=== PATIENT | male | born 1955 | race American Indian/Alaskan Native ===

== ENCOUNTER 2016-11-20 12:34 | Inpatient (IN) | payer OTHER ==
--- NOTE | 2016-11-20 13:44 | C.PDOC ---
History Of Present Illness 61 y/o male with Hx of brito and HTN presents to ED with complaints of left leg weakness since noon today. Patient states while he was brushing teeth today around 12pm and reports symptoms have been improving. Patient denies fever, nausea, slurred speech or any other complaints at this time. Time Seen by Provider: 11/20/16 13:13 Chief Complaint (Nursing): Lower Extremity Problem/Injury History Per: Patient History/Exam Limitations: no limitations Onset/Duration Of Symptoms: Hrs Current Symptoms Are (Timing): Still Present Past Medical History Reviewed: Historical Data, Nursing Documentation, Vital Signs Vital Signs: Last Vital Signs Temp 98.3 F 11/20/16 15:15 Pulse 72 11/20/16 15:15 Resp 18 11/20/16 15:15 BP 110/62 11/20/16 15:15 Pulse Ox 98 11/20/16 15:15 - Medical History PMH: HTN, Hyperlipidemia Surgical History: No Surg Hx Family History: States: No Known Family Hx - Social History Hx Alcohol Use: No Hx Substance Use: No Review Of Systems Except As Marked, All Systems Reviewed And Found Negative. Constitutional: Negative for: Fever, Chills Cardiovascular: Negative for: Chest Pain Respiratory: Negative for: Shortness of Breath Gastrointestinal: Negative for: Nausea Musculoskeletal: Positive for: Leg Pain Skin: Negative for: Rash Neurological: Positive for: Weakness. Negative for: Numbness, Headache, Dizziness Physical Exam - Physical Exam Appears: Non-toxic, No Acute Distress Skin: Normal Color, Warm, No Rash Head: Atraumatic, Normacephalic Eye(s): bilateral: Normal Inspection Oral Mucosa: Moist Neck: Normal ROM, Supple Chest: Symmetrical Cardiovascular: Rhythm Regular, No Murmur Respiratory: Normal Breath Sounds, No Rales, No Rhonchi, No Wheezing Gastrointestinal/Abdominal: Soft, No Tenderness, No Guarding, No Rebound Extremity: Normal ROM, Capillary Refill (<2 seonds), Other (4/5 left lower extremity strength) Pulses: Left Dorsalis Pedis: Normal, Right Dorsalis Pedis: Normal Neurological/Psych: Oriented x3, Normal Speech, Normal Cranial Nerves, Normal Sensation ED Course And Treatment - Laboratory Results Result Diagrams: 11/20/16 13:49 11/20/16 13:49 ECG: Interpreted By Me, Viewed By Me ECG Rhythm: Sinus Rhythm, Nonspecific Changes ECG Interpretation: Normal Interpretation Of EC O2 Sat by Pulse Oximetry: 97 (RA) Pulse Ox Interpretation: Normal NIHSS Stroke Scale - Date/Time Evaluation Performed Date Performed: 11/20/16 Time Performed: 14:31 - How Severe is the Stoke Level of Consciousness: 0=Alert LOC to Questions: 0=Both comments correct LOC to commands: 0=Obeys both correctly Best Gaze: 0=Normal Visual: 0=No visual loss Facial: 0=Normal Motor Arm - Left: 0=No drift Motor Arm - Right: 0=No drift Motor Leg - Left: 1=Drift before 5 sec Motor Leg - Right: 0=No drift Limb Ataxia: 0=Absent Sensory: 0=Normal Best Language: 0=No aphasia Dysarthia: 0=Normal articulation Extinction & Inattention (Neglect): 0=Normal, no object Score: 1 Severity Of Stroke: 1-4= Minor Stroke rTPA Inclusion/Exclusion - Refusal of Treatment Patient Refused Treatment: No - Inclusion Criteria for Altepase Patient is 18 years or Older: Yes The Clinical Diagnosis of Ischemic Stroke That is Causing a Potentially Disabling Neurological Deficit: No Time of Onset is Well Established to be Less Than 270 Minute Before Treatment Would Begin: Yes Risk/Benefit Discussed With Patient/Family Member Present: No - Exclusion Criteria for Altepase Less Than 3 Months Had a Recent: Stroke Medical Decision Making Medical Decision Making: code stroke- labs imnaging pending Plan: * ECG * Blood work * UA * 230: code stroke called on arrival. pt with inprovng symptoms. discussed with dr crzu , requests asa plavix, ns. pt not tpa candidate as previous cva last 1 month. Disposition - Disposition Disposition: HOSPITALIZED Disposition Time: 03:00 Condition: STABLE - Clinical Impression Clinical Impression: Stroke - PA / SPRINKLING SYSTEM IRRIGATOR / Resident Statement MD/DO has examined the patient and agrees with the treatment plan. - Scribe Statement The provider has reviewed the documentation as recorded by the Seymour Bryan All medical record entries made by the Scribe were at my direction and personally dictated by me. I have reviewed the chart and agree that the record accurately reflects my personal performance of the history, physical exam, medical decision making, and the department course for this patient. I have also personally directed, reviewed, and agree with the discharge instructions and disposition. Decision To Admit - Pt Status Changed To: Hospital Disposition Of: Inpatient - Admit Certification Admit to Inpatient:: After my assessment, the patient will require hospitalization for at least two midnights. This is because of the severity of symptoms shown, intensity of services needed, and/or the medical risk in this patient being treated as an outpatient. - InPatient: Physician Admission Certification: I certify that this patient requires 2 or more midnights of care for the following reason:: pt with stroke, needs neuro eval. - . Bed Request Type: Telemetry Admitting Physician: Yohannes Hines Patient Diagnosis: Stroke
--- NOTE | 2016-11-20 13:46 | CT ---
PROCEDURE: CT HEAD WITHOUT CONTRAST. HISTORY: Code Stroke COMPARISON: None available. TECHNIQUE: Axial computed tomography images were obtained through the head/brain without intravenous contrast. Radiation dose: Total exam DLP = 822 mGy-cm. This CT exam was performed using one or more of the following dose reduction techniques: Automated exposure control, adjustment of the mA and/or kV according to patient size, and/or use of iterative reconstruction technique. FINDINGS: HEMORRHAGE: No intracranial hemorrhage. BRAIN: There is edema with local mass identified in the medial left frontal lobe and a very small left anterior cerebral artery distribution. Minimal lucency measures approximately 1 cm at the cortex of the are posterior right frontal lobe near the vertex. There is lucency at the inferior right cerebellum medially which does not compress the local sulci and this is felt to represent a subacute or chronic infarct or is the left frontal 1 May be more acute or early is subacute. The right frontal lucency is indeterminate and may represent a small lacune of chronic at age. No intracranial hemorrhage appreciated. No significant global mass effect. Clinically correlate further. Follow-up MRI is advised for greater characterization. The brain parenchyma is otherwise normal appearing. No atrophy or chronic microvascular ischemic changes. VENTRICLES: Unremarkable. No hydrocephalus. CALVARIUM: Unremarkable. PARANASAL SINUSES: Unremarkable as visualized. No significant inflammatory changes. MASTOID AIR CELLS: Unremarkable as visualized. No inflammatory changes. OTHER FINDINGS: None. IMPRESSION: Findings suspicious for an acute or early subacute infarct in the medial left upper lobe with probable chronic infarct the right cerebellum inferiorly. An indeterminate infarct is appreciated at the left frontal lobe posteriorly likely reflecting a lacune or infarction. No intracranial hemorrhage or midline shift. Otherwise negative head CT. Findings were discussed with 11/20/2016, 13:40 p.m. with right down and read back verification.
[2016-11-20 13:55] LABS: BASO % 0.6 % (0.0-2.0); EOS % 0.4 % (0.0-4.0); LYMPH # 1.1 K/uL (1.0-4.3); LYMPH % 38.2 % (20.0-40.0); MEAN CELL VOLUME 97.2 fL (80.0-94.0); MEAN CORPUSCULAR HEMOGLOBIN 33.2 pg (27.0-31.0); MEAN CORPUSCULAR HGB CONC 34.1 g/dL (33.0-37.0); MONO # 0.4 K/uL (0.0-0.8); MONO % 12.2 % (0.0-10.0); NRBC % 0.1 % (0.0-2.0); RED CELL DISTRIBUTION WIDTH 13.1 % (11.5-14.5)
[2016-11-20] MEDS ORDERED: Sodium Chloride 0.9% 1,000 ML ONE (13:59)
[2016-11-20] MEDS ORDERED: Sodium Chloride 0.9% 1,000 ML IV SCH (14:00)
[2016-11-20 14:04] LABS: INR 1.2
[2016-11-20 14:08] LABS: ALB/GLOB RATIO 1.2 (1.0-2.1); ALKALINE PHOSPHATASE 64 U/L (38-126); ALT/SGPT 34 U/L (21-72); AST/SGOT 26 U/L (17-59); BILIRUBIN,TOTAL 0.5 mg/dL (0.2-1.3); BLOOD UREA NITROGEN 19 mg/dL (9-20); CALCIUM 9.1 mg/dl (8.6-10.4); CARBON DIOXIDE 28 mmol/L (22-30); CHLORIDE 100 mmol/L (98-107); CHOLESTEROL 95 mg/dL (0-199); GFR AFRICAN-AMERICAN > 60; GLUCOSE,RANDOM 73 mg/dL (75-110); POTASSIUM 3.8 mmol/L (3.6-5.2); SODIUM 141 mmol/L (132-148); TOTAL PROTEIN 6.7 g/dL (6.3-8.3)
--- NOTE | 2016-11-20 14:36 | RAD ---
HISTORY: code stroke COMPARISON: No prior. FINDINGS: LUNGS: No active pulmonary disease. PLEURA: No significant pleural effusion identified, no pneumothorax apparent. CARDIOVASCULAR: Normal. OSSEOUS STRUCTURES: No significant abnormalities. VISUALIZED UPPER ABDOMEN: Normal. OTHER FINDINGS: None. IMPRESSION: No active disease.
--- NOTE | 2016-11-20 15:56 | CP.PCM.HP ---
<YanickShahla - Last Filed: 11/20/16 17:28> History of Present Illness - History of Present Illness History of Present Illness: HPI: Patient is a 61yo male who presented to the ER with a chief complaint of left lower extremity weakness. Patient states that he was brushing his teeth around 11:45am this morning when he felt his left leg buckle then go limp underneath him so he told his niece to call an ambulance. He states that he remembers feeling a twitch in his leg before his leg went limp. He currently states the weakness has improved slightly. He says that he experienced these symptoms 1 month prior except his right leg was affected. He went to the ED at [facility] and was diagnosed with acute left CINTIA infarct. Patient has been noncompliant with medications he was discharged with. He also complains of some itchy bumps on his left thigh. He denies LOC, numbness/ tingling, burning sensation, change in speech, vision, or hearing. ROS: General: (-) Fever or chills Skin: (-) rash Neuro: (-) syncope or vertigo, (+) paralysis HEENT: (+) BEACH, (-) tinnitus Cardio: (-) Chest pain or palpitations Resp: (-) SOB or cough GI: (-) N/V/D/C/Abdominal pain, hematochezia, melena : (-) Hematuria, dysuria, or frequency MSK: (-) LE pain or swelling, (+) neck pain Code: Full PMHx: HLD, HTN, DE 2012 & 2014, CKD, Stroke 1mo ago PSHx: Cardiac cath with 2 stents in 2011, Right hand fracture repair Medications: Atorvastatin 80mg QD, Metoprolol 12.5mg BID, Lisinopril 2.5mg QD Allergies: Shellfish Family Hx: Father- DE; Grandfather- Stroke; 2 sisters (unknown cause) Social Hx: Non-smoker, no alcohol or illicit drug use; doesnt consume pork Present on Admission - Present on Admission Any Indicators Present on Admission: No Review of Systems - Review of Systems All systems: reviewed and no additional remarkable complaints except (as per HPI ) Past Patient History - Past Social History Smoking Status: Never Smoked - CARDIAC Hx Hypertension: Yes - PSYCHIATRIC Hx Substance Use: No - SURGICAL HISTORY Hx Surgeries: Yes Hx Cardiac Catheterization: Yes - ANESTHESIA Hx Anesthesia: Yes Hx Anesthesia Reactions: No Meds Allergies/Adverse Reactions: Allergies Allergy/AdvReac Type Severity Reaction Status Date / Time No Known Allergies Allergy Unverified 11/20/16 12:48 Physical Exam - Constitutional Appears: Non-toxic, No Acute Distress - Head Exam Head Exam: ATRAUMATIC, NORMAL INSPECTION, NORMOCEPHALIC - Eye Exam Eye Exam: EOMI, PERRL Pupil Exam: NORMAL ACCOMODATION - ENT Exam ENT Exam: Mucous Membranes Moist - Neck Exam Neck exam: Positive for: Normal Inspection. Negative for: Tenderness - Respiratory Exam Respiratory Exam: Clear to Auscultation Bilateral, NORMAL BREATHING PATTERN - Cardiovascular Exam Cardiovascular Exam: RRR, +S1, +S2 - GI/Abdominal Exam GI & Abdominal Exam: Normal Bowel Sounds, Soft. absent: Distended, Tenderness - Exam Additional comments: Right inguinal hernia - Extremities Exam Extremities exam: Positive for: pedal pulses present. Negative for: calf tenderness, joint swelling, pedal edema Additional comments: Two small erythematous, pruritic papules of left medial thigh proximal to knee and 1 small erythematous pruritic papule of right thigh proximal to knee. - Back Exam Back exam: NORMAL INSPECTION. absent: paraspinal tenderness, rash noted, vertebral tenderness - Neurological Exam Neurological exam: Alert, CN II-XII Intact, Oriented x3 - Expanded Neurological Exam Expanded Patient oriented to: person, place, time Cranial nerves: EOM's Intact: Normal, Facial Palsey w/Forehead Movement: Normal , Facial Palsey w/o Forehead Movement: Normal, Facial Sensation: Normal, Tongue Deviation: Normal Cerebellar Function: Heel to You: Normal, Romberg: Abnormal Left, Abnormal Right Upper motor neuron: Babinski Sign: Normal Sensory exam: Lower Extremity Light Touch: Normal, Upper Extremity Light Touch: Normal Neuro motor strength exam: Left Upper Extremity: 5, Right Upper Extremity: 5, Left Lower Extremity: 3, Right Lower Extremity: 4 Coma Scale Eye Opening: SPONTANEOUS Coma Scale Motor Response: OBEYS COMMANDS Coma Scale Verbal: Oriented Coma Scale Total: 15 - Psychiatric Exam Psychiatric exam: Normal Affect, Normal Mood - Skin Skin Exam: Dry, Intact, Normal Color, Warm Results - Vital Signs Recent Vital Signs: Last Vital Signs Temp 98.1 F 11/20/16 12:42 Pulse 68 11/20/16 12:42 Resp 20 11/20/16 12:42 BP 106/64 11/20/16 12:42 Pulse Ox 97 11/20/16 14:33 - Labs Result Diagrams: 11/20/16 13:49 11/20/16 13:49 Labs: Laboratory Results - last 24 hr 11/20/16 11/20/16 11/20/16 13:21 13:49 13:49 WBC 3.0 L RBC 3.91 L Hgb 13.0 Hct 38.0 MCV 97.2 H MCH 33.2 H MCHC 34.1 RDW 13.1 Plt Count 86 L MPV 9.0 Neut % (Auto) 48.6 L Lymph % (Auto) 38.2 Zavala % (Auto) 12.2 H Eos % (Auto) 0.4 Baso % (Auto) 0.6 Neut # 1.4 L Lymph # 1.1 Zavala # 0.4 Eos # 0.0 Baso # 0.0 Differential Comment PT 13.1 H INR 1.2 APTT 30 Sodium Potassium Chloride Carbon Dioxide Anion Gap BUN Creatinine Est GFR ( Amer) Est GFR (Non-Af Amer) POC Glucose (mg/dL) 110 Random Glucose Hemoglobin A1c Calcium Total Bilirubin AST ALT Alkaline Phosphatase Troponin I Total Protein Albumin Globulin Albumin/Globulin Ratio Triglycerides Cholesterol LDL Cholesterol Direct HDL Cholesterol Blood Type Antibody Screen 11/20/16 11/20/16 11/20/16 13:49 13:49 13:49 WBC RBC Hgb Hct MCV MCH MCHC RDW Plt Count MPV Neut % (Auto) Lymph % (Auto) Zavala % (Auto) Eos % (Auto) Baso % (Auto) Neut # Lymph # Zavala # Eos # Baso # Differential Comment PT INR APTT Sodium 141 Potassium 3.8 Chloride 100 Carbon Dioxide 28 Anion Gap 16 BUN 19 Creatinine 1.1 Est GFR ( Amer) > 60 Est GFR (Non-Af Amer) > 60 POC Glucose (mg/dL) Random Glucose 73 L Hemoglobin A1c 6.0 Calcium 9.1 Total Bilirubin 0.5 AST 26 ALT 34 Alkaline Phosphatase 64 Troponin I < 0.0120 Total Protein 6.7 Albumin 3.7 Globulin 3.1 Albumin/Globulin Ratio 1.2 Triglycerides 41 Cholesterol 95 LDL Cholesterol Direct 38 HDL Cholesterol 44 Blood Type O POSITIVE Antibody Screen Negative Assessment & Plan - Assessment and Plan (Free Text) Assessment: Acute CVA * Neuro consult (Gideon) - recs appreciated * F/U MRI brain * F/U MRA head/neck * F/U Protein C & S, antithrombin III, Factor V leiden, antiphospholipid, anticardiolipin * F/U Echo with bubble study * ASA 325 mg * Plavix 75 mg * Crestor 20 mg PO HS * Metoprolol 12.5 mg BID * PT/OT eval Impaired glucose tolerance * A1c: 6.0 * repeat in 1 year HTN * metoprolol as above * Lisinopril 2.5 mg PO QD * NS @ 100 Pancytopenia * F/U HIV, Hep panel, UDS CKD * monitor BUN/Cr Hx CAD * ASA, plavix, crestor as above * F/U RUSSEL x2 with ECG * Cardio consult (Jatin) - recs appreciated NIHSS Stroke Scale - Date/Time Evaluation Performed Date Performed: 11/20/16 Time Performed: 14:31 When Was NIHSS Performed: Baseline - How Severe is the Stoke Level of Consciousness: 0=Alert LOC to Questions: 0=Both comments correct LOC to commands: 0=Obeys both correctly Best Gaze: 0=Normal Visual: 0=No visual loss Facial: 0=Normal Motor Arm - Left: 0=No drift Motor Arm - Right: 0=No drift Motor Leg - Left: 1=Drift before 5 sec Motor Leg - Right: 0=No drift Limb Ataxia: 0=Absent Sensory: 0=Normal Best Language: 0=No aphasia Dysarthia: 0=Normal articulation Extinction & Inattention (Neglect): 0=Normal, no object Score: 1 Severity Of Stroke: 1-4= Minor Stroke <Gayatri Cullen V - Last Filed: 11/20/16 20:28> Results - Vital Signs Recent Vital Signs: Last Vital Signs Temp 97.3 F L 11/20/16 19:13 Pulse 59 L 11/20/16 19:13 Resp 20 11/20/16 19:13 BP 122/73 11/20/16 19:13 Pulse Ox 98 11/20/16 19:13 - Labs Result Diagrams: 11/20/16 13:49 11/20/16 13:49 Labs: Laboratory Results - last 24 hr 11/20/16 17:58 Urine Color Straw Urine Clarity Clear Urine pH 6.0 Ur Specific [place] 1.005 Urine Protein Negative Urine Glucose (UA) Normal Urine Ketones Negative Urine Blood Negative Urine Nitrate Negative Urine Bilirubin Negative Urine Urobilinogen Normal Ur Leukocyte Esterase Neg Urine WBC (Auto) < 1 Attending/Attestation - Attestation I have personally seen and examined this patient.: Yes I have fully participated in the care of the patient.: Yes I have reviewed all pertinent clinical information: Yes Notes (Text): Patient seen, examined and case discussed with day-time resident. Patient seen in [facility] Bed 11 in Emergency Room at approximately 3:30PM with the resident. Patient recently discharged 1.5 weeks ago from [facility] for stroke. Patient was discharged on beta-mann, statin, channing-inhibitor, and 3 day supply of Coumadin. patient has been without Coumadin for 1.5 weeks and reports his clinic appointment was today to be seen regarding Coumadin. Patient reports today he felt his left lower extremity buckle, did not fall, and his daughter called the emergency room and brought him in. Patient reports residual right lower extremity weakness from recent stroke, which is improving but reports he is weak. Reviewed patient's discharge paper work which he has with him: extensive workup including CT/MRA/MRA, Echo with bubble completed in prior hospitalization which reports less likely PFO per report; only written reports no prior imaging to review. Patient has history recurrent heart attacks X2, s/p 2 stents, 2012 cath , and does not regularly follow-up with brand mgr. Discussed admitting orders with resident. In the ED, patient received Aspirin, Plavix per neurology. Patient is not candidate for TPA per neurology. Cardiology consult: given possible paroxysmal Atrial fib, hx of CAD, r/o thromboembolic cause for Stroke Assessment/Plan 1) Acute CVA * Neuro consult (Gideon) - recs appreciated * F/U MRI brain w/o contrast * F/U MRA head/neck w/o contrast * F/U Protein C & S, antithrombin III, Factor V leiden, antiphospholipid, anticardiolipin (has been off Coumadin for 1.5 weeks) * F/U Echo with bubble study r/o PFO * ASA 325 mg PO daily * Plavix 75 mg PO daily * Crestor 20 mg PO HS * Metoprolol 12.5 mg BID hold SBP<100 and HR<60 * PT/OT eval * NS 100 cc/hr 2) Impaired glucose tolerance * A1c: 6.0; prior a1c in prior hospital paperwork is 5.5 * repeat in 1 year to prevent overt diabetes 3) Hypertension * Metoprolol 12.5mg PO BID (hold SBP<100 and HR<60 * Lisinopril 2.5 mg PO QD (hold SBP<100 * NS 100 cc/hr 4) Pancytopenia * History of pancytopenia per hospital discharge summary * WBC, and platelets low * F/U HIV, Hep panel, UDS 5) History of Chronic Kidney Disease * History of CKD per hospital discharge summary * monitor BUN/Cr * GFR >60 6) Hx CAD * Cardioloft consult ([facility]) - recs appreciated * ASA 81mg PO daily, plavix 75mg PO daily, crestor 20mg POqHS * Metoprolol 12.5mg PO bid * Lisinopril 2.5mg PO daily * history of 2 stents; 2 prior heart attacks; prior cath 2011 (stent of RCA; patient has report at bedside) * F/U RUSSEL x2 with ECG; first troponin negative * Note: cardiac hx (2 DE, CAD with stents, possible paroxysmal atrial fibrillation) 7) Prophylactic Measure * Thrombocytopenia noted on review of EMR and pancytopenia prior DC summary; no bleeding episodes noted * PT/OT eval * monitor on Telemetry
--- NOTE | 2016-11-20 16:43 | CP.PCM.CON ---
History of Present Illness - History of Present Illness History of Present Illness: Mr. Mayes is a 61-year-old man with a past medical history of recent ischemic stroke on 10/26/2016 involving the left CINTIA region and more chronic stroke involving the right cerebellum. He was found to have paroxysmal atrial fibrillation and started on coumadin, but was only given a 3 day supply at discharge. He ran out of his medication. Today, he noticed that his left leg felt weak. His previous stroke had resulted in right side weakness. His symptoms improved somewhat, but he still had some difficulty with moving his left foot. CT scan of the head showed the subacute and chronic infarcts. He was not a good tPA candidate due to recent stroke and his NIHSS was minimal at 2. Review of Systems - Review of Systems All systems: reviewed and no additional remarkable complaints except Past Patient History - Past Social History Smoking Status: Never Smoked - CARDIAC Hx Hypertension: Yes - PSYCHIATRIC Hx Substance Use: No - SURGICAL HISTORY Hx Surgeries: Yes Hx Cardiac Catheterization: Yes - ANESTHESIA Hx Anesthesia: Yes Hx Anesthesia Reactions: No Meds Allergies/Adverse Reactions: Allergies Allergy/AdvReac Type Severity Reaction Status Date / Time No Known Allergies Allergy Unverified 11/20/16 12:48 - Medications Medications: Current Medications Sodium Chloride (Sodium Chloride 0.9%) 1,000 mls @ 100 mls/hr IV .Q10H UBALDO Last Admin: 11/20/16 14:03 Dose: 100 mls/hr Physical Exam - Constitutional Appears: Well - Head Exam Head Exam: ATRAUMATIC, NORMAL INSPECTION, NORMOCEPHALIC - Eye Exam Eye Exam: EOMI, Normal appearance, PERRL Pupil Exam: NORMAL ACCOMODATION, PERRL - ENT Exam ENT Exam: Mucous Membranes Moist, Normal Exam - Neck Exam Neck exam: Positive for: Normal Inspection - Respiratory Exam Respiratory Exam: Clear to Auscultation Bilateral, NORMAL BREATHING PATTERN - Cardiovascular Exam Cardiovascular Exam: REGULAR RHYTHM, +S1, +S2 - GI/Abdominal Exam GI & Abdominal Exam: Normal Bowel Sounds, Soft. absent: Tenderness - Rectal Exam Rectal Exam: Deferred - Extremities Exam Extremities exam: Positive for: normal inspection - Back Exam Back exam: NORMAL INSPECTION - Neurological Exam Neurological exam: Abnormal Gait, Alert, CN II-XII Intact, Oriented x3 Additional comments: NIHSS = 2 - Expanded Neurological Exam Expanded Patient oriented to: person, place, time Cranial nerves: Facial Palsey w/Forehead Movement: Normal, Nystagmus: Normal, Tongue Deviation: Normal Ataxia: Yes Cerebellar Function: Finger to Nose: Abnormal Left, Abnormal Right, Heel to Oyu : Abnormal Right Upper motor neuron: Babinski Sign: Abnormal Right, Pronator Drift: Abnormal Right Sensory exam: Lower Extremity Light Touch: Normal, Lower Extremity Pin Prick: Normal, Upper Extremity Light Touch: Normal, Upper Extremity Pin Prick: Normal Neuro motor strength exam: Left Upper Extremity: 4, Right Upper Extremity: 5, Left Lower Extremity: 4, Right Lower Extremity: 4 DTR: Bicep Left: 2+, Bicep Right: 2+, Patellar Left: 2+, Patellar Right: 2+ - Psychiatric Exam Psychiatric exam: Depressed - Skin Skin Exam: Dry, Intact, Normal Color, Warm Results - Vital Signs Recent Vital Signs: Last Vital Signs Temp 98.1 F 11/20/16 12:42 Pulse 68 11/20/16 12:42 Resp 20 11/20/16 12:42 BP 106/64 11/20/16 12:42 Pulse Ox 97 11/20/16 14:33 - Labs Result Diagrams: 11/20/16 13:49 11/20/16 13:49 Labs: Laboratory Results - last 24 hr 11/20/16 11/20/16 11/20/16 13:21 13:49 13:49 WBC 3.0 L RBC 3.91 L Hgb 13.0 Hct 38.0 MCV 97.2 H MCH 33.2 H MCHC 34.1 RDW 13.1 Plt Count 86 L MPV 9.0 Neut % (Auto) 48.6 L Lymph % (Auto) 38.2 Rankin % (Auto) 12.2 H Eos % (Auto) 0.4 Baso % (Auto) 0.6 Neut # 1.4 L Lymph # 1.1 Rankin # 0.4 Eos # 0.0 Baso # 0.0 Differential Comment PT 13.1 H INR 1.2 APTT 30 Sodium Potassium Chloride Carbon Dioxide Anion Gap BUN Creatinine Est GFR ( Amer) Est GFR (Non-Af Amer) POC Glucose (mg/dL) 110 Random Glucose Hemoglobin A1c Calcium Total Bilirubin AST ALT Alkaline Phosphatase Troponin I Total Protein Albumin Globulin Albumin/Globulin Ratio Triglycerides Cholesterol LDL Cholesterol Direct HDL Cholesterol Blood Type Antibody Screen 11/20/16 11/20/16 11/20/16 13:49 13:49 13:49 WBC RBC Hgb Hct MCV MCH MCHC RDW Plt Count MPV Neut % (Auto) Lymph % (Auto) Rankin % (Auto) Eos % (Auto) Baso % (Auto) Neut # Lymph # Rankin # Eos # Baso # Differential Comment PT INR APTT Sodium 141 Potassium 3.8 Chloride 100 Carbon Dioxide 28 Anion Gap 16 BUN 19 Creatinine 1.1 Est GFR ( Amer) > 60 Est GFR (Non-Af Amer) > 60 POC Glucose (mg/dL) Random Glucose 73 L Hemoglobin A1c 6.0 Calcium 9.1 Total Bilirubin 0.5 AST 26 ALT 34 Alkaline Phosphatase 64 Troponin I < 0.0120 Total Protein 6.7 Albumin 3.7 Globulin 3.1 Albumin/Globulin Ratio 1.2 Triglycerides 41 Cholesterol 95 LDL Cholesterol Direct 38 HDL Cholesterol 44 Blood Type O POSITIVE Antibody Screen Negative Assessment & Plan (1) Stroke Assessment and Plan: Likely due to paroxysmal atrial fibrillation and not being on anticoagulation causing cardio-embolic stroke. The patient will be started on Eliquis 5 mg BID for secondary stroke prevention. Furthermore, I recommend the followin. MRI of the brain without contrast 2. CTA of the head/neck 3. Echocardiogram with bubble study 4. Lipid panel, HbA1c, TSH/T3/T4, B12, CRP/ESR 5. PT/OT eval and treat 6. NS at 100 mL/hr 7. Case management consult Thank you. Status: Acute Priority: High
[2016-11-20] MEDS: Sodium Chloride 0.9% 1,000 ML IV SCH (17:17)
[2016-11-20 18:10] LABS: URINE BILIRUBIN NEGATIVE (NEGATIVE); URINE BLOOD NEGATIVE (NEGATIVE); URINE COLOR Straw (YELLOW); URINE GLUCOSE (UA) NORMAL (Normal); URINE KETONE NEGATIVE (NEGATIVE); URINE LEUKOCYTE ESTERASE NEG Leu/uL (Negative); URINE PROTEIN NEGATIVE (NEGATIVE); URINE UROBILINOGEN NORMAL mg/dL (0.2-1.0); WBC URINE < 1 /hpf (0-5)
[2016-11-20] MEDS ORDERED: Gadodiamide 287 MG/ML VIAL (15ML) IV ONE (18:30)
[2016-11-21] MEDS: Sodium Chloride 0.9% 1,000 ML IV SCH ×3 (03:15→21:56)
[2016-11-21 07:00] LABS: BASO % 0.2 % (0.0-2.0); HEMATOCRIT 37.7 % (35.0-51.0); LYMPH # 1.6 K/uL (1.0-4.3); LYMPH % 59.9 % (20.0-40.0); MEAN CELL VOLUME 97.2 fL (80.0-94.0); MEAN CORPUSCULAR HEMOGLOBIN 33.6 pg (27.0-31.0); MEAN CORPUSCULAR HGB CONC 34.6 g/dL (33.0-37.0); MEAN PLATELET VOLUME 9.6 fL (7.2-11.7); MONO # 0.3 K/uL (0.0-0.8); MONO % 10.6 % (0.0-10.0); NRBC % 0.1 % (0.0-2.0); RED CELL DISTRIBUTION WIDTH 13.2 % (11.5-14.5); WHITE BLOOD COUNT 2.6 K/uL (4.8-10.8)
[2016-11-21 07:03] LABS: INR 1.4
[2016-11-21 07:30] LABS: CHLORIDE 108 mmol/L (98-107); POTASSIUM 4.1 mmol/L (3.6-5.2); SODIUM 141 mmol/L (132-148)
[2016-11-21 07:32] LABS: AST/SGOT 25 U/L (17-59); BILIRUBIN,TOTAL 0.6 mg/dL (0.2-1.3); CARBON DIOXIDE 26 mmol/L (22-30); GFR AFRICAN-AMERICAN > 60
[2016-11-21 07:33] LABS: ALB/GLOB RATIO 1.1 (1.0-2.1); ALKALINE PHOSPHATASE 58 U/L (38-126); ALT/SGPT 36 U/L (21-72); BLOOD UREA NITROGEN 15 mg/dL (9-20); CALCIUM 8.6 mg/dl (8.6-10.4); GLUCOSE,RANDOM 78 mg/dL (75-110); MAGNESIUM 1.5 mg/dL (1.6-2.3)
--- NOTE | 2016-11-21 08:57 | MRI ---
PROCEDURE: MRI BRAIN WITH AND WITHOUT CONTRAST HISTORY: Acute CVA COMPARISON: Head CT 11/20/2016 TECHNIQUE: Multiplanar, multisequence MR images of the brain were obtained with and without intravenous contrast enhancement. FINDINGS: HEMORRHAGE: None DWI: Anthony maybe some trace element of subacute infarction in the periphery of medial left frontal and right basilar cerebellar infarctions, they are primarily chronic with no restricted diffusion throughout the majority of the distribution. Trace hemosiderin is associated with the medial left frontal infarction not apparent in the CT exam 11/20/2016. BRAIN PARENCHYMA: A small chronic lacune is seen at the right parietal vertex. Moderate chronic microangiopathy is appreciated in the subcortical and centrum semiovale white matter of the bilateral cerebral hemispheres sparing the brainstem and cerebellum. There is no mass effect or prominent extra-axial fluid collection appreciable. Midline brain and appears unremarkable grossly. Limited enhancement is seen in the periphery of the medial left frontal brain infarction with none otherwise throughout the remainder of the exam. ENHANCEMENT: As described above. . VENTRICLES: Unremarkable. No hydrocephalus. CRANIUM: Unremarkable. ORBITS: Grossly unremarkable. PARANASAL SINUSES/MASTOIDS: Clear VASCULAR SYSTEM: Skull base flow voids intact. OTHER FINDINGS: None . IMPRESSION: 1. Chronic infarctions of the medial left frontal lobe and the basilar portion of the right cerebellum are identified with trace possible restricted diffusion in foci in the periphery of the left frontal infarct. Trace hemosiderin is also seen related to the left frontal infarct without gross intracranial hemorrhage evident. Gyriform enhancement seen related to the medial left frontal infarct. For chronic lacune infarction seen the right parietal lobe as well. Continued CT follow-up is advised. 2. Age related neuro degenerative changes are appreciated. No additional abnormal intracranial enhancement other than the left frontal lobe as described above.
--- NOTE | 2016-11-21 09:02 | MRI ---
PROCEDURE: Magnetic Resonance Angiography Brain HISTORY: acute cva COMPARISON: None available. TECHNIQUE: 3D time of flight MR angiography of the intracranial arteries was performed. Rotating maximum intensity projection images were generated. FINDINGS: INTERNAL CEREBRAL ARTERIES: Unremarkable. The skull base, petrous, cavernous and supraclinoid segments are bilaterally widely patient. ANTERIOR CEREBRAL ARTERIES: Unremarkable. The left A1 and bilateral A2 segments are widely patent. A persistent right A1 CINTIA segment is identified. Smaller distal branches unremarkable, as visualized. MIDDLE CEREBRAL ARTERIES: Unremarkable. M1 and M2 segments are widely patent. Perisylvian branches of the left a somewhat less numerous than those at the right. . POSTERIOR CIRCULATION: Basilar Artery: Unremarkable. Distal Vertebral Arteries: Unremarkable. Posterior Cerebral Arteries: Unremarkable. Posterior Inferior Cerebellar Arteries: not identified. ANEURYSM/ VASCULAR MALFORMATIONS: None. OTHER FINDINGS: None. IMPRESSION: Mildly asymmetry and left versus right perisylvian MCA branches which may reflect normal variation. The remainder the examination appears unremarkable.
--- NOTE | 2016-11-21 09:06 | MRI ---
PROCEDURE: MR Angiography of the neck without contrast HISTORY: Acute CVA COMPARISON: None available. TECHNIQUE: 3D [id number] angiography of the neck was performed. Rotating maximum intensity projection images of the cervical carotid and vertebral arteries were generated. The origins of the common carotid arteries were not visualized, which is a limitation inherent to the non-contrast time of flight technique. FINDINGS: RIGHT CAROTID ARTERIES: Common Carotid Artery: Normal. Carotid Bifurcation: Normal. Internal Carotid Artery:Widely patent with limited stenosis at the origin. External Carotid Artery (proximal branches): Normal. LEFT CAROTID ARTERIES: Common Carotid Artery: Normal. Carotid Bifurcation: Normal. Internal Carotid Artery:Normal. External Carotid Artery (proximal branches): Normal. VERTEBRAL ARTERIES: Right Vertebral Artery: Normal. Left Vertebral Artery: Normal. OTHER FINDINGS: None. IMPRESSION: No significant stenosis appreciated at the visualized cervical segments of the common and internal carotid arteries bilaterally.
[2016-11-21] MEDS ORDERED: Magnesium Sulfate 1 gm in D5W 1 GM/100 ML BAG IVPB ONE ×2 (09:51→12:29)
--- NOTE | 2016-11-21 10:33 | CP.PCM.PN ---
<Shahla Herndon - Last Filed: 11/21/16 17:43> Subjective - Date & Time of Evaluation Date of Evaluation: 11/21/16 Time of Evaluation: 10:29 - Subjective Subjective: Patient seen and examined at bedside. Patient doing well at this time with no acute events overnight. Patient resting comfortably in bed. Patient says he feels some strength coming back in his left leg. Patient says he has occasional shooting pains down his right leg and twitching of his muscles, which neither are new. Patient says he has a mild right sided headache where he hit his head on the freezer a couple days ago. Patient denies new onset paralysis in other areas, N/T, F/C, CP/SOB/Palpitations, AP/N/V/D/C. Objective - Vital Signs/Intake and Output Vital Signs (last 24 hours): Temp Pulse Resp BP Pulse Ox 97.9 F 60 18 119/75 100 11/21/16 07:05 11/21/16 08:43 11/21/16 07:05 11/21/16 08:43 11/21/16 07:05 Intake and Output: 11/21/16 11/21/16 06:59 18:59 Intake Total 1340 Output Total 800 Balance 540 - Medications Medications: Current Medications Apixaban (Eliquis) 5 mg PO BID [facility] Last Admin: 11/20/16 22:26 Dose: 5 mg Aspirin (Aspirin) 325 mg PO DAILY [facility] Last Admin: 11/20/16 21:28 Dose: 325 mg Clopidogrel Bisulfate (Plavix) 75 mg PO DAILY [facility] Last Admin: 11/20/16 21:28 Dose: 75 mg Sodium Chloride (Sodium Chloride 0.9%) 1,000 mls @ 100 mls/hr IV .Q10H [facility] Last Admin: 11/21/16 06:47 Dose: 100 mls/hr Magnesium Sulfate/Dextrose (Magnesium Sulfate 1 Gm/100 Ml D5w) 1 gm in 100 mls @ 100 mls/hr IVPB ONCE ONE Stop: 11/21/16 10:50 Lisinopril (Zestril) 2.5 mg PO DAILY [facility] Last Admin: 11/20/16 19:00 Dose: Not Given Metoprolol Tartrate (Lopressor) 12.5 mg PO 0800,1800 [facility] Last Admin: 11/21/16 08:43 Dose: Not Given Rosuvastatin Calcium (Crestor) 20 mg PO HS UBALDO Last Admin: 11/20/16 21:28 Dose: 20 mg - Labs Labs: 11/21/16 06:45 11/21/16 06:45 PT 16.1 SECONDS (9.7-12.2) H 11/21/16 06:45 INR 1.4 11/21/16 06:45 APTT 30 SECONDS (21-34) 11/20/16 13:49 - Constitutional Appears: Non-toxic, No Acute Distress - Head Exam Head Exam: ATRAUMATIC, NORMAL INSPECTION, NORMOCEPHALIC - Eye Exam Eye Exam: EOMI, PERRL - ENT Exam ENT Exam: Mucous Membranes Moist - Respiratory Exam Respiratory Exam: Clear to Ausculation Bilateral, NORMAL BREATHING PATTERN - Cardiovascular Exam Cardiovascular Exam: REGULAR RHYTHM, +S1, +S2. absent: Murmur - GI/Abdominal Exam GI & Abdominal Exam: Soft, Normal Bowel Sounds. absent: Distended, Tenderness - Extremities Exam Extremities Exam: Normal Inspection. absent: Pedal Edema, Tenderness - Neurological Exam Neurological Exam: Alert, Awake Neuro motor strength exam: Left Upper Extremity: 5, Right Upper Extremity: 5, Left Lower Extremity: 4 (improved from previous ), Right Lower Extremity: 4 - Psychiatric Exam Psychiatric exam: Normal Affect, Normal Mood - Skin Skin Exam: Dry, Intact, Normal Color, Warm Assessment and Plan - Assessment and Plan (Free Text) Assessment: 1) Acute CVA * Neuro consult (Korya) - recs appreciated * F/U Thyroid panel, B12, CRP, ESR * F/U repeat CT to be done at 6am on 11/22 * MRI brain w/o contrast: Chronic infarctions of the medial left frontal lobe and the basilar portion of the right cerebellum are identified with trace possible restricted diffusion in foci in the periphery of the left frontal infarct. Trace hemosiderin is also seen related to the left frontal infarct without gross intracranial hemorrhage evident. Gyriform enhancement seen related to the medial left frontal infarct. For chronic lacune infarction seen the right parietal lobe as well. Age related neuro degenerative changes are appreciated. 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 * Therapeutic lovenox (60 mg QD) started * Coumadin to start 11/22 * F/U arterial duplex of LEs * ASA 325 mg PO daily * Plavix 75 mg PO daily * Crestor 20 mg PO HS * Metoprolol 12.5 mg BID hold SBP<100 and HR<60 * PT/OT eval * NS 100 cc/hr 2) Impaired glucose tolerance * A1c: 6.0; prior a1c in prior hospital paperwork is 5.5 * repeat in 1 year to prevent overt diabetes 3) Hypertension * Metoprolol 12.5mg PO BID (hold SBP<100 and HR<60 * Lisinopril 2.5 mg PO QD (hold SBP<100 * NS 100 cc/hr 4) Pancytopenia * History of pancytopenia per hospital discharge summary * WBC, and platelets low * HIV, Hep panel negative * F/U UDS * F/U Heme/Onc consult (Dr. Hannah) 5) History of Chronic Kidney Disease * History of CKD per hospital discharge summary * monitor BUN/Cr * GFR >60 6) Hx CAD * [facility] - recs appreciated * ASA 81mg PO daily, plavix 75mg PO daily, crestor 20mg POqHS * Metoprolol 12.5mg PO bid * Lisinopril 2.5mg PO daily * history of 2 stents; 2 prior heart attacks; prior cath 2011 (stent of RCA; patient has report at bedside) * RUSSEL with ECG neg x3 * Note: cardiac hx (2 ME, CAD with stents, possible paroxysmal atrial fibrillation) 7) Prophylactic Measure * Thrombocytopenia noted on review of EMR and pancytopenia prior DC summary; no bleeding episodes noted * PT/OT eval * monitor on Telemetry NIHSS Stroke Scale - Date/Time Evaluation Performed Date Performed: 11/20/16 Time Performed: 14:31 When Was NIHSS Performed: Baseline - How Severe is the Stoke Level of Consciousness: 0=Alert LOC to Questions: 0=Both comments correct LOC to commands: 0=Obeys both correctly Best Gaze: 0=Normal Visual: 0=No visual loss Facial: 0=Normal Motor Arm - Left: 0=No drift Motor Arm - Right: 0=No drift Motor Leg - Left: 0=No drift Motor Leg - Right: 0=No drift Limb Ataxia: 0=Absent Sensory: 0=Normal Best Language: 0=No aphasia Dysarthia: 0=Normal articulation Extinction & Inattention (Neglect): 0=Normal, no object Score: 0 Severity Of Stroke: 0= No Stroke <Gayatri Cullen V - Last Filed: 11/21/16 23:44> Objective - Vital Signs/Intake and Output Vital Signs (last 24 hours): Temp Pulse Resp BP Pulse Ox 98.1 F 69 20 111/66 98 11/21/16 16:13 11/21/16 16:13 11/21/16 16:13 11/21/16 16:13 11/21/16 16:13 Intake and Output: 11/21/16 11/22/16 18:59 06:59 Intake Total 800 Output Total 900 Balance -100 - Medications Medications: Current Medications Aspirin (Aspirin) 325 mg PO DAILY [facility] Last Admin: 11/21/16 12:02 Dose: 325 mg Clopidogrel Bisulfate (Plavix) 75 mg PO DAILY [facility] Last Admin: 11/21/16 12:02 Dose: 75 mg Enoxaparin Sodium (Lovenox) 60 mg SC Q12 [facility] Last Admin: 11/21/16 21:50 Dose: Not Given Sodium Chloride (Sodium Chloride 0.9%) 1,000 mls @ 100 mls/hr IV .Q10H [facility] Last Admin: 11/21/16 21:56 Dose: 100 mls/hr Lisinopril (Zestril) 2.5 mg PO DAILY [facility] Last Admin: 11/21/16 12:02 Dose: 2.5 mg Metoprolol Tartrate (Lopressor) 12.5 mg PO 0800,1800 [facility] Last Admin: 11/21/16 17:17 Dose: 12.5 mg Rosuvastatin Calcium (Crestor) 20 mg PO HS [facility] Last Admin: 11/21/16 21:52 Dose: 20 mg - Labs Labs: 11/21/16 06:45 11/21/16 06:45 PT 16.1 SECONDS (9.7-12.2) H 11/21/16 06:45 INR 1.4 11/21/16 06:45 APTT 30 SECONDS (21-34) 11/20/16 13:49 Attending/Attestation - Attestation I have personally seen and examined this patient.: Yes I have fully participated in the care of the patient.: Yes I have reviewed all pertinent clinical information, including history, physical exam and plan: Yes Notes (Text): Patient seen, examined and case discussed with day-time resident during afternoon rounds. Discussed case with cardiology, Dr Steiner, help appreciated during rounds today. Reviewed echocardiogram with cardiology, given dilated cardiomyopathy and appears to be microemobli, recommends for patient to be on Coumadin. Discussed case with neurology, Dr Meneses following discussion with cardiology, and reviewed Brain MRI and agrees and recommends coumadin. Given patient is high risk for recurrent stroke secondary cardiomyopathy. Will start bridge from lovenox to Coumadin Patient is pancytopenic. Patient denies prior workup for pancytopenia. HIV is negative. Hepatitis panel is negative and UDS is negative. Will consult heme- onc steam conditioner filling given pancytopenia and patient's high risk to recurrent stroke in light of thrombocytopenia. Prior to start lovenox, nurse fredis blood work for HIT antibodies in light of patient's recent hospitalization last month. Assessment/Plan 1) Subacute on Chronic CVA * Neuro consult (Gideon) - recs appreciated * Cardiology consult (Dr. Steiner)--recs appreciated * F/U Protein C & S, antithrombin III, Factor V leiden, antiphospholipid, anticardiolipin (has been off Coumadin for 1.5 weeks)-->pending * F/U Echo with bubble study r/o PFO-->patient does not have PFO. * F/U Thyroid panel, B12, CRP, ESR * F/U repeat CT Head to be done at 6am on 11/22/16 to monitor for hemorrhagic in light of anticoagulation * Patient to be bridged to Coumadin in light of cardiomyopathy with residual apical thrombus; patient is high risk for recurrent stroke discussed with both cardiology and neurology. Discussed with patient at bedside during rounds, who is aware. * MRI brain w/o contrast: Chronic infarctions of the medial left frontal lobe and the basilar portion of the right cerebellum are identified with trace possible restricted diffusion in foci in the periphery of the left frontal infarct. Trace hemosiderin is also seen related to the left frontal infarct without gross intracranial hemorrhage evident. Gyriform enhancement seen related to the medial left frontal infarct. For chronic lacune infarction seen the right parietal lobe as well. Age related neuro degenerative changes are appreciated. 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 * Therapeutic lovenox (60 mg Q12) started today 11/21; to bridge to Coumadin * F/U arterial duplex of LEs given patient reporting leg pain in light of high risk of thromboembolism secondary to cardiomyopathy * ASA 325 mg PO daily * Plavix 75 mg PO daily * Crestor 20 mg PO HS * Metoprolol 12.5 mg BID hold SBP<100 and HR<60 * PT/OT eval * NS 100 cc/hr 2) Impaired glucose tolerance * A1c: 6.0; prior a1c in prior hospital paperwork is 5.5 * repeat in 1 year to prevent overt diabetes 3) Hypertension * Metoprolol 12.5mg PO BID (hold SBP<100 and HR<60 * Lisinopril 2.5 mg PO QD (hold SBP<100) * NS 100 cc/hr 4) Pancytopenia * History of pancytopenia per hospital discharge summary * WBC, and platelets low * HIV, Hep panel, UDS which are negative * HIT antibodies ordered * Heme-onc consult requested 5) History of Chronic Kidney Disease * History of CKD per hospital discharge summary * monitor BUN/Cr * GFR >60 6) Hx CAD * Cardiology consult ([facility]) - recs appreciated * ASA 81mg PO daily, plavix 75mg PO daily, crestor 20mg POqHS * Metoprolol 12.5mg PO bid * Lisinopril 2.5mg PO daily * history of 2 stents; 2 prior heart attacks; prior cath 2011 (stent of RCA; patient has report at bedside) * RUSSEL X3 negative * Note: cardiac hx (2 ME, CAD with stents) 7) Prophylactic Measure * Thrombocytopenia noted on review of EMR and pancytopenia prior DC summary; no bleeding episodes noted-->patient is high risk for recurrent stroke secondary to cardimyopathy-->discussed with neurology and cardiology. Patient started on therapuetic Lovenox to bridge to Coumadin. NOAC not appropriate for patient discussed with both neurology and cardiology. * PT/OT eval * monitor on Telemetry
[2016-11-21] MEDS ORDERED: Heparin25000 units/250ml 1/2NS 25,000 UNITS/250 ML BAG IV PRN (16:09)
--- NOTE | 2016-11-21 16:21 | CP.PCM.PN ---
Subjective - Date & Time of Evaluation Date of Evaluation: 11/21/16 Time of Evaluation: 16:14 - Subjective Subjective: Mr. Mayes was seen and examined today at bedside. He was clinically stable overnight and there were no acute changes. His echocardiogram was complete and is consistent with likely residual apical thrombus and dilated cardiomyopathy, possibly as the underlying cause of the previous embolic stroke. We discussed with the patient the risks and benefits of starting full anticoagulation. After discussion with cardiology, the primary team and the patient, we agreed that the benefits outweigh the risks. Objective - Vital Signs/Intake and Output Vital Signs (last 24 hours): Temp Pulse Resp BP Pulse Ox 98.1 F 69 20 111/66 98 11/21/16 16:13 11/21/16 16:13 11/21/16 16:13 11/21/16 16:13 11/21/16 16:13 Intake and Output: 11/21/16 11/21/16 06:59 18:59 Intake Total 1340 Output Total 800 Balance 540 - Medications Medications: Current Medications Apixaban (Eliquis) 5 mg PO BID [facility] Last Admin: 11/21/16 12:02 Dose: 5 mg Aspirin (Aspirin) 325 mg PO DAILY [facility] Last Admin: 11/21/16 12:02 Dose: 325 mg Clopidogrel Bisulfate (Plavix) 75 mg PO DAILY [facility] Last Admin: 11/21/16 12:02 Dose: 75 mg Sodium Chloride (Sodium Chloride 0.9%) 1,000 mls @ 100 mls/hr IV .Q10H [facility] Last Admin: 11/21/16 06:47 Dose: 100 mls/hr Lisinopril (Zestril) 2.5 mg PO DAILY [facility] Last Admin: 11/21/16 12:02 Dose: 2.5 mg Metoprolol Tartrate (Lopressor) 12.5 mg PO 0800,1800 [facility] Last Admin: 11/21/16 08:43 Dose: Not Given Rosuvastatin Calcium (Crestor) 20 mg PO HS [facility] Last Admin: 11/20/16 21:28 Dose: 20 mg - Labs Labs: 11/21/16 06:45 11/21/16 06:45 PT 16.1 SECONDS (9.7-12.2) H 11/21/16 06:45 INR 1.4 11/21/16 06:45 APTT 30 SECONDS (21-34) 11/20/16 13:49 - Neurological Exam Neurological Exam: Abnormal Gait, Awake, CN II-XII Intact, Oriented x3 Neuro motor strength exam: Left Upper Extremity: 4, Right Upper Extremity: 4, Left Lower Extremity: 4, Right Lower Extremity: 3 Assessment and Plan (1) Stroke Assessment & Plan: This is a subacute to chronic stroke, but the patient has some new symptoms. Will start IV heparin or Lovenox and bridge to coumadin to maintain an INR of 2- 3. A repeat CT head can be done in 12-16 hours to evaluate for any hemorrhagic conversion. The patient may be transferred to acute rehab if stable and INR is therapeutic. Status: Acute
[2016-11-21] MEDS ORDERED: Enoxaparin 60 mg Syringe SC SCH (16:45)
--- NOTE | 2016-11-21 20:00 | CARD ---
APPROVED REPORT EXAM: Two-dimensional and M-mode echocardiogram with Doppler and color Doppler. Other Information Quality : GoodRhythm : NSR INDICATION CVA/TIA LEFT LEG WEAKNESS, PA 2011 & 2014 RISK FACTORS Hypertension Hyperlipidemia 2D DIMENSIONS IVSd0.6 (0.7-1.1cm)LVDd7.1 (3.9-5.9cm) PWd0.7 (0.7-1.1cm)LVDs5.5 (2.5-4.0cm) FS (%) 22.1 %LVEF (%)43.4 (>50%) M-Mode DIMENSIONS RVDd1.82 (2.1-3.2cm)Left Atrium (MM)3.48 (2.5-4.0cm) IVSd0.72 (0.7-1.1cm)Aortic Root2.93 (2.2-3.7cm) LVDd7.00 (4.0-5.6cm)Aortic Cusp Exc.2.05 (1.5-2.0cm) PWd0.78 (0.7-1.1cm)FS (%) 11 % LVDs6.25 (2.0-3.8cm)LVEF (%)23 (>50%) Mitral Valve MV E Dceispmc17.2cm/sMV A Szokexei430.6cm/sE/A ratio0.7 TDI E/Lateral E'0.0E/Medial E'0.0 Tricuspid Valve TR Peak Gnxandnp037yf/sTR Peak Gr.36pbHmVABZ99pfSo LEFT VENTRICLE The Left Ventricle is severely dilated. There is normal left ventricular wall thickness. The Ejection Fraction is 35-40%. akinesia of inferolateral wall at mid cavitory level.cad Transmitral Doppler flow pattern is Grade I-abnormal relaxation pattern. RIGHT VENTRICLE The right ventricle is normal size. The right ventricular systolic function is normal. ATRIA The left atrium size is normal. The right atrium size is normal. no definiate shunt seen. AORTIC VALVE The aortic valve is normal in structure. No aortic regurgitation is present. MITRAL VALVE The mitral valve is normal in structure. Mitral regurgitation is trace. TRICUSPID VALVE The tricuspid valve is normal in structure. There is mild tricuspid regurgitation. Right ventricular systolic pressure is estimated at 30 mmHg. There is no pulmonary hypertension. PULMONIC VALVE The pulmonary valve is normal in structure. There is mild pulmonic valvular regurgitation. GREAT VESSELS The aortic root is normal in size. The IVC is normal in size and collapses >50% with inspiration. PERICARDIAL EFFUSION There is no pericardial effusion. <Conclusion> The Left Ventricle is severely dilated. There is normal left ventricular wall thickness. The Ejection Fraction is 35-40%. akinesia of inferolateral wall at mid cavitory level.cad Transmitral Doppler flow pattern is Grade I-abnormal relaxation pattern. no definiate shunt seen. Mitral regurgitation is trace. There is mild tricuspid regurgitation. Right ventricular systolic pressure is estimated at 30 mmHg. There is no pulmonary hypertension. suggest yuki if asd is suspected.
[2016-11-21] MEDS: Enoxaparin 60 mg Syringe SC SCH (21:50)
--- NOTE | 2016-11-22 03:07 | CON ---
DATE: REASON FOR CONSULTATION: Cardiomyopathy. HISTORY OF PRESENT ILLNESS: The patient is a 61-year-old male from [facility] in the [place], who has a history of coronary artery disease, status post PR and coronary stenting, history of CVA in the past involving mid left cerebral artery. The patient was known to have an apical thrombus at that time according to documentation from [facility] and the patient was admitted last month because of acute CVA involving the left frontal lobe. The patient at that time did experience right leg weakness. The patient received tPA and was discharged on Coumadin therapy. However, the patient stated that at the time of his discharge, prior to weekend, he was given Coumadin for three days only and has not followed up with the clinic of [facility]. The patient presented this time because of left leg weakness. The patient denies any speech difficulty. The patient's head CT scan done on admission was suspicious of acute or early subacute infarct in the medial left upper lobe, with probable chronic infarct in the right cerebellum inferiorly. Neck MRA, no significant stenosis in the visualized segments. Head MRA, mild asymmetry in left versus right perisylvian MCA branches which may reflect a normal variation. Brain MRI revealed chronic infarcts of the medial left frontal lobe and basal portion of the right cerebellum identified with trace possible restriction in diffusion in foci in the periphery of the left frontal infarct. Trace hemorrhagic drainage is also seen related to the left frontal infarct without gross intracranial hemorrhage. I did review echocardiographic study which is consistent with dilated cardiomyopathy, left ventricular smoke, and possible residual left apical thrombus. LABORATORY DATA: SMA-7 today is within normal limits except chloride of 108. Urine drug screen is negative. INR is 1.4. Hemoglobin and hematocrit 13 and 37.4, white count 2.6, platelet count 80,000. ASSESSMENT: 1. Recurrent cerebrovascular accident, most likely related to the patient's left ventricular thrombus, dilated cardiomyopathy, and left ventricular smoke, which is an embolic state. 2. Ischemic cardiomyopathy. RECOMMENDATIONS: Case was discussed with the medical team including the neurologist. The patient can be initiated on subcutaneous Lovenox therapy on a therapeutic regimen and then Coumadin. Lovenox will continue until a therapeutic INR is achieved or if there is any concomitant significant drop in platelet count. Obtain platelet antibody assay in the meantime. The fact that the patient has a diminutive PFO will not make a significant difference in the management because there is a strong existing substrate for the patient's current and past embolic phenomena, which include left ventricular apical thrombus and left ventricular smoke, as well as dilated cardiomyopathy. I will request social service to help the patient renew his [place] Medicaid which has . Rusty Steiner MD
[2016-11-22 06:59] LABS: BASO % 0.3 % (0.0-2.0); EOS % 0.9 % (0.0-4.0); HEMATOCRIT 36.3 % (35.0-51.0); LYMPH # 1.4 K/uL (1.0-4.3); LYMPH % 42.8 % (20.0-40.0); MEAN CELL VOLUME 97.2 fL (80.0-94.0); MEAN CORPUSCULAR HEMOGLOBIN 33.3 pg (27.0-31.0); MEAN CORPUSCULAR HGB CONC 34.3 g/dL (33.0-37.0); MEAN PLATELET VOLUME 9.2 fL (7.2-11.7); MONO # 0.3 K/uL (0.0-0.8); MONO % 9.9 % (0.0-10.0); RED CELL DISTRIBUTION WIDTH 13.2 % (11.5-14.5); WHITE BLOOD COUNT 3.3 K/uL (4.8-10.8)
[2016-11-22 07:14] LABS: CHLORIDE 108 mmol/L (98-107); SODIUM 140 mmol/L (132-148)
[2016-11-22 07:16] LABS: GFR AFRICAN-AMERICAN > 60
[2016-11-22 07:17] LABS: ALB/GLOB RATIO 1.1 (1.0-2.1); ALKALINE PHOSPHATASE 63 U/L (38-126); ALT/SGPT 35 U/L (21-72); AST/SGOT 24 U/L (17-59); BILIRUBIN,TOTAL 0.4 mg/dL (0.2-1.3); BLOOD UREA NITROGEN 15 mg/dL (9-20); CALCIUM 8.3 mg/dl (8.6-10.4); CARBON DIOXIDE 26 mmol/L (22-30); GLUCOSE,RANDOM 78 mg/dL (75-110); MAGNESIUM 1.5 mg/dL (1.6-2.3); PHOSPHOROUS 3.5 mg/dL (2.5-4.5); TOTAL PROTEIN 5.8 g/dL (6.3-8.3)
--- NOTE | 2016-11-22 07:44 | CP.PCM.PN ---
<Shahla Herndon - Last Filed: 11/22/16 19:24> Subjective - Date & Time of Evaluation Date of Evaluation: 11/22/16 Time of Evaluation: 07:41 - Subjective Subjective: Patient seen and examined at bedside. Patient doing well with no complaints at this time. Patient does admit to a single episode of diarrhea overnight. Patient otherwise feeling well and doing much better. Objective - Vital Signs/Intake and Output Vital Signs (last 24 hours): Temp Pulse Resp BP Pulse Ox 97.6 F 59 L 20 125/82 98 11/22/16 04:00 11/22/16 04:00 11/22/16 04:00 11/22/16 04:00 11/22/16 04:00 Intake and Output: 11/22/16 11/22/16 06:59 18:59 Intake Total 800 Output Total 1100 Balance -300 - Medications Medications: Current Medications Aspirin (Aspirin) 325 mg PO DAILY [facility] Last Admin: 11/21/16 12:02 Dose: 325 mg Clopidogrel Bisulfate (Plavix) 75 mg PO DAILY [facility] Last Admin: 11/21/16 12:02 Dose: 75 mg Enoxaparin Sodium (Lovenox) 60 mg SC Q12 [facility] Last Admin: 11/21/16 21:50 Dose: Not Given Sodium Chloride (Sodium Chloride 0.9%) 1,000 mls @ 100 mls/hr IV .Q10H [facility] Last Admin: 11/21/16 21:56 Dose: 100 mls/hr Lisinopril (Zestril) 2.5 mg PO DAILY [facility] Last Admin: 11/21/16 12:02 Dose: 2.5 mg Metoprolol Tartrate (Lopressor) 12.5 mg PO 0800,1800 [facility] Last Admin: 11/21/16 17:17 Dose: 12.5 mg Rosuvastatin Calcium (Crestor) 20 mg PO HS [facility] Last Admin: 11/21/16 21:52 Dose: 20 mg - Labs Labs: 11/22/16 06:48 11/22/16 06:48 PT 16.1 SECONDS (9.7-12.2) H 11/21/16 06:45 INR 1.4 11/21/16 06:45 APTT 30 SECONDS (21-34) 11/20/16 13:49 - Constitutional Appears: Non-toxic, No Acute Distress - Head Exam Head Exam: NORMAL INSPECTION - Eye Exam Eye Exam: EOMI - ENT Exam ENT Exam: Mucous Membranes Moist - Respiratory Exam Respiratory Exam: Clear to Ausculation Bilateral, NORMAL BREATHING PATTERN - Cardiovascular Exam Cardiovascular Exam: REGULAR RHYTHM, +S1, +S2 - GI/Abdominal Exam GI & Abdominal Exam: Soft, Normal Bowel Sounds. absent: Distended, Tenderness - Extremities Exam Extremities Exam: Normal Inspection. absent: Pedal Edema - Neurological Exam Neurological Exam: Alert, Awake Neuro motor strength exam: Left Upper Extremity: 5, Right Upper Extremity: 5, Left Lower Extremity: 4, Right Lower Extremity: 4 - Psychiatric Exam Psychiatric exam: Normal Affect, Normal Mood - Skin Skin Exam: Dry, Intact, Normal Color, Warm Assessment and Plan - Assessment and Plan (Free Text) Assessment: 1) Acute CVA * Neuro consult (Gideon) - 11/21 This is a subacute to chronic stroke, but the patient has some new symptoms. Will start IV heparin or Lovenox and bridge to coumadin to maintain an INR of 2-3. A repeat CT head can be done in 12-16 hours to evaluate for any hemorrhagic conversion. The patient may be transferred to acute rehab if stable and INR is therapeutic. * F/U Thyroid panel, B12, CRP, * ESR: 5 * 11/22 CT head: no mass or hemorrhage seen * MRI brain w/o contrast: Chronic infarctions of the medial left frontal lobe and the basilar portion of the right cerebellum are identified with trace possible restricted diffusion in foci in the periphery of the left frontal infarct. Trace hemosiderin is also seen related to the left frontal infarct without gross intracranial hemorrhage evident. Gyriform enhancement seen related to the medial left frontal infarct. For chronic lacune infarction seen the right parietal lobe as well. Age related neuro degenerative changes are appreciated. * MRA head/neck w/o contrast: mild asymmetry and left v right perisylvian MCA branches (may be normal variation); no significant stenosis of cervical segments of common and internal carotid arteries b/l * F/U Protein C & S, antithrombin III, Factor V leiden, antiphospholipid, anticardiolipin (has been off Coumadin for 1.5 weeks) * Echo with bubble study: cardiomyopathy 2/2 Hx DC without PFO * Therapeutic lovenox (60 mg QD) started * Coumadin 5 mg * Arterial duplex of LEs negative for disease * ASA 325 mg PO daily * Plavix 75 mg PO daily * Crestor 20 mg PO HS * Metoprolol 12.5 mg BID hold SBP<100 and HR<60 * PT/OT eval * NS 100 cc/hr 2) Impaired glucose tolerance * A1c: 6.0; prior a1c in prior hospital paperwork is 5.5 * repeat in 1 year to prevent overt diabetes 3) Hypertension * Metoprolol 12.5mg PO BID (hold SBP<100 and HR<60 * Lisinopril 2.5 mg PO QD (hold SBP<100 * NS 100 cc/hr 4) Pancytopenia * History of pancytopenia per hospital discharge summary * WBC, and platelets low * HIV, Hep panel negative * F/U UDS * F/U Heme/Onc consult (Dr. Hannah) 5) History of Chronic Kidney Disease * History of CKD per hospital discharge summary * monitor BUN/Cr * GFR >60 6) Hx CAD * Cardioloft consult ([facility]) - recs appreciated * ASA 81mg PO daily, plavix 75mg PO daily, crestor 20mg POqHS * Metoprolol 12.5mg PO bid * Lisinopril 2.5mg PO daily * history of 2 stents; 2 prior heart attacks; prior cath 2011 (stent of RCA; patient has report at bedside) * RUSSEL with ECG neg x3 * Note: cardiac hx (2 DC, CAD with stents, possible paroxysmal atrial fibrillation) 7) Diarrhea * f/u C Diff 8) Prophylactic Measure * Thrombocytopenia noted on review of EMR and pancytopenia prior DC summary; no bleeding episodes noted * PT/OT eval * monitor on Telemetry <Gayatri Cullen V - Last Filed: 11/22/16 23:35> Objective - Vital Signs/Intake and Output Vital Signs (last 24 hours): Temp Pulse Resp BP Pulse Ox 98.5 F 58 L 20 121/67 99 11/22/16 15:10 11/22/16 15:10 11/22/16 15:10 11/22/16 15:10 11/22/16 15:10 Intake and Output: 11/22/16 11/23/16 18:59 06:59 Intake Total 600 1400 Output Total 800 600 Balance -200 800 - Medications Medications: Current Medications Aspirin (Aspirin) 325 mg PO DAILY [facility] Last Admin: 09/13/17 11:01 Dose: 325 mg Clopidogrel Bisulfate (Plavix) 75 mg PO DAILY [facility] Last Admin: 11/22/16 11:01 Dose: 75 mg Enoxaparin Sodium (Lovenox) 60 mg SC Q12 [facility] Last Admin: 11/22/16 21:42 Dose: 60 mg Sodium Chloride (Sodium Chloride 0.9%) 1,000 mls @ 100 mls/hr IV .Q10H [facility] Last Admin: 11/22/16 19:15 Dose: Not Given Lisinopril (Zestril) 2.5 mg PO DAILY [facility] Last Admin: 11/22/16 11:01 Dose: 2.5 mg Metoprolol Tartrate (Lopressor) 12.5 mg PO 0800,1800 [facility] Last Admin: 11/22/16 19:18 Dose: 12.5 mg Rosuvastatin Calcium (Crestor) 20 mg PO HS [facility] Last Admin: 11/22/16 21:42 Dose: 20 mg - Labs Labs: 11/22/16 06:48 11/22/16 06:48 PT 13.9 SECONDS (9.7-12.2) H 11/22/16 13:44 INR 1.2 11/22/16 13:44 APTT 30 SECONDS (21-34) 11/20/16 13:49 Attending/Attestation - Attestation I have personally seen and examined this patient.: Yes I have fully participated in the care of the patient.: Yes I have reviewed all pertinent clinical information, including history, physical exam and plan: Yes Notes (Text): Patient seen, examined and case discussed with day-time resident during morning rounds. Patient had completed CT head prior to my arrival. Patient reports he is feeling good. Reports one episode of diarrhea. Denies bleeding episodes. Denies bruising but advised given his thrombocytopenia there is risk for bleeding advised to look out for black stool, blood in toilet bowel. Will start bridge from lovenox to Coumadin. INR: 1.2 Coumadin 5mg ordered for today Patient is pancytopenic. Patient denies prior workup for pancytopenia. HIV is negative. Hepatitis panel is negative and UDS is negative. Resident has left a message with heme-onc production cook awating call back.ancytopenia and patient's high risk to recurrent stroke in light of thrombocytopenia. Awaiting blood work for HIT antibodies and hypercoaguability workup in light of patient's recent hospitalization last month. Assessment/Plan 1) Subacute on Chronic CVA * Neuro consult (Gideon) - recs appreciated * Cardiology consult (Dr. Steiner)--recs appreciated * F/U Protein C & S, antithrombin III, Factor V leiden, antiphospholipid, anticardiolipin (has been off Coumadin for 1.5 weeks)-->pending * F/U Echo with bubble study r/o PFO-->patient does not have PFO. * F/U Thyroid panel, B12, CRP, ESR * F/U repeat CT Head to be done at 6am on 11/22/16 to monitor for hemorrhagic in light of anticoagulation * Patient to be bridged to Coumadin in light of cardiomyopathy with residual apical thrombus; patient is high risk for recurrent stroke discussed with both cardiology and neurology. Discussed with patient at bedside during rounds, who is aware. * MRI brain w/o contrast: Chronic infarctions of the medial left frontal lobe and the basilar portion of the right cerebellum are identified with trace possible restricted diffusion in foci in the periphery of the left frontal infarct. Trace hemosiderin is also seen related to the left frontal infarct without gross intracranial hemorrhage evident. Gyriform enhancement seen related to the medial left frontal infarct. For chronic lacune infarction seen the right parietal lobe as well. Age related neuro degenerative changes are appreciated. * MRA head/neck w/o contrast: mild asymmetry and left v right perisylvian MCA branches (may be normal variation); no significant stenosis of cervical segments of common and internal carotid arteries b/l * F/U Protein C & S, antithrombin III, Factor V leiden, antiphospholipid, anticardiolipin (has been off Coumadin for 1.5 weeks)-->pending * Echo with bubble study: cardiomyopathy 2/2 Hx DC without PFO * Therapeutic lovenox (60 mg Q12) started today 11/21; to bridge to Coumadin * arterial duplex of LEs: negative * ASA 325 mg PO daily-->81mg PO daily * Plavix 75 mg PO daily * Crestor 20 mg PO HS * Metoprolol 12.5 mg BID hold SBP<100 and HR<60 * PT/OT eval * NS 100 cc/hr * Coumadin 5mg PO tonight; on Lovenox bridge 2) Impaired glucose tolerance * A1c: 6.0; prior a1c in prior hospital paperwork is 5.5 * repeat in 1 year to prevent overt diabetes 3) Hypertension * Metoprolol 12.5mg PO BID (hold SBP<100 and HR<60 * Lisinopril 2.5 mg PO QD (hold SBP<100) * NS 100 cc/hr 4) Pancytopenia * History of pancytopenia per hospital discharge summary * WBC, and platelets low * HIV, Hep panel, UDS which are negative * HIT antibodies ordered * Heme-onc consult requested-->awaiting recs 5) History of Chronic Kidney Disease * History of CKD per hospital discharge summary * monitor BUN/Cr * GFR >60 6) Hx CAD * Cardiology consult ([facility]) - recs appreciated * ASA 81mg PO daily, plavix 75mg PO daily, crestor 20mg POqHS * Metoprolol 12.5mg PO bid * Lisinopril 2.5mg PO daily * history of 2 stents; 2 prior heart attacks; prior cath 2011 (stent of RCA; patient has report at bedside) * RUSSEL X3 negative * Note: cardiac hx (2 DC, CAD with stents) 7) Prophylactic Measure * Thrombocytopenia noted on review of EMR and pancytopenia prior DC summary; no bleeding episodes noted-->patient is high risk for recurrent stroke secondary to cardimyopathy-->discussed with neurology and cardiology. Patient started on therapuetic Lovenox to bridge to Coumadin. NOAC not appropriate for patient discussed with both neurology and cardiology. * PT/OT eval-->recommend acute rehab; will need to follow-up with case management. * monitor on Telemetry
[2016-11-22] MEDS: Sodium Chloride 0.9% 1,000 ML IV SCH ×2 (09:01→19:15)
[2016-11-22] MEDS ORDERED: Magnesium Sulfate 1 gm in D5W 1 GM/100 ML BAG IVPB ONE (09:39)
--- NOTE | 2016-11-22 09:57 | CT ---
PROCEDURE: CT HEAD WITHOUT CONTRAST. HISTORY: Acute CVA COMPARISON: 11/20/2016. TECHNIQUE: Axial computed tomography images were obtained through the head/brain without intravenous contrast. Radiation dose: Total exam DLP = 981.84 mGy-cm. This CT exam was performed using one or more of the following dose reduction techniques: Automated exposure control, adjustment of the mA and/or kV according to patient size, and/or use of iterative reconstruction technique. FINDINGS: HEMORRHAGE: No intracranial hemorrhage. BRAIN: No intracranial mass. Subacute to old infarct medial left frontal lobe and medial right cerebellar hemisphere. Also probable small old subacute infarct high right frontal adjacent to the vertex. These are all unchanged in appearance compared to the prior CT examination of 11/20/2016. VENTRICLES: Unremarkable. No hydrocephalus. CALVARIUM: Unremarkable. PARANASAL SINUSES: Unremarkable as visualized. No significant inflammatory changes. MASTOID AIR CELLS: Unremarkable as visualized. No inflammatory changes. OTHER FINDINGS: None. IMPRESSION: No intracranial mass. No acute hemorrhage. Subacute old infarcts medial right cerebellar, medial left frontal and high right frontal unchanged in appearance compared to 11/20/2016.
[2016-11-22 10:32] LABS: FREE T4 1.18 ng/dL (0.78-2.19)
[2016-11-22 10:46] LABS: THYROID STIMULATING HORMONE 1.11 mIU/L (0.46-4.68)
[2016-11-22] MEDS: Enoxaparin 60 mg Syringe SC SCH ×2 (11:01→21:42)
--- NOTE | 2016-11-22 13:07 | CARD ---
APPROVED REPORT EKG Measurement Heart [id number] <Conclusion> Sinus bradycardia with occasional premature ventricular complexes Otherwise normal ECG
--- NOTE | 2016-11-22 13:20 | VASCLAB ---
STUDY DESCRIPTION: HISTORY: Leg pain with Hx cardiomyopathy PRIORS: None. TECHNIQUE: Pulse volume recording waveforms and segmental pressures of bilateral lower extremities at multiple levels were obtained. Ankle Brachial Indices (ABIs) were calculated. Report prepared by SEBASTIEN Bird, RVT RIGHT LOWER EXTREMITY: * Brachial artery: Pressure - 117 mmHg. * High thigh: Pressure - 159 mmHg: Ratio - 1.36: PVR waveform - Pulsatile * Low thigh: Pressure - 168 mmHg: Ratio - 1.44 PVR waveform: Pulsatile * Calf: Pressure - 182 mmHg: Ratio - 1.56 PVR waveform: Pulsatile * Posterior tibial Artery: Pressure - 156 mmHg: Ratio - 1.33 PVR waveform: Pulsatile * Dorsalis pedis Artery: Pressure - 155 mmHg: Ratio - 1.32 PVR waveform: Pulsatile * Great toe: Pressure - mmHg: Ratio - PVR waveform: Ankle brachial index (HUSEYIN): 1.33 LEFT LOWER EXTREMITY: * Brachial artery: Pressure - 115 mmHg. * High thigh: Pressure - 151 mmHg: Ratio - 1.29: PVR waveform - Pulsatile * Low thigh: Pressure - 166 mmHg: Ratio - 1.42 PVR waveform: Pulsatile * Calf: Pressure - 167 mmHg: Ratio - 1.43 PVR waveform: Pulsatile * Posterior tibial Artery: Pressure - 154 mmHg: Ratio - 1.32 PVR waveform: Pulsatile * Dorsalis pedis Artery: Pressure - 157 mmHg: Ratio - 1.34 PVR waveform: Pulsatile * Great toe: Pressure - mmHg: Ratio - PVR waveform: Ankle brachial index (HUSEYIN): 1.34 OTHER FINDINGS: Right: eft: IMPRESSION: Right:Waveforms are triphasic and do not suggest any significant peripheral arterial disease. Left: Waveforms are triphasic and do not suggest any significant peripheral arterial disease.
[2016-11-22 13:54] LABS: INR 1.2
--- NOTE | 2016-11-22 15:39 | CP.PCM.PN ---
Subjective - Date & Time of Evaluation Date of Evaluation: 11/22/16 Time of Evaluation: 15:37 - Subjective Subjective: Mr. Mayes was seen and examined today at bedside. He was found in NAD. There were no acute events overnight. He said he was feeling better today. Heparin was switched to Lovenox. He denied headache or any new neurologic deficits. Objective - Vital Signs/Intake and Output Vital Signs (last 24 hours): Temp Pulse Resp BP Pulse Ox 98.2 F 66 18 119/74 100 11/22/16 07:05 11/22/16 12:55 11/22/16 07:05 11/22/16 07:05 11/22/16 12:55 Intake and Output: 11/22/16 11/22/16 06:59 18:59 Intake Total 800 Output Total 1100 Balance -300 - Medications Medications: Current Medications Aspirin (Aspirin) 325 mg PO DAILY [facility] Last Admin: 11/22/16 11:01 Dose: 325 mg Clopidogrel Bisulfate (Plavix) 75 mg PO DAILY [facility] Last Admin: 11/22/16 11:01 Dose: 75 mg Enoxaparin Sodium (Lovenox) 60 mg SC Q12 [facility] Last Admin: 11/22/16 11:01 Dose: 60 mg Sodium Chloride (Sodium Chloride 0.9%) 1,000 mls @ 100 mls/hr IV .Q10H [facility] Last Admin: 11/22/16 09:01 Dose: 100 mls/hr Lisinopril (Zestril) 2.5 mg PO DAILY [facility] Last Admin: 11/22/16 11:01 Dose: 2.5 mg Metoprolol Tartrate (Lopressor) 12.5 mg PO 0800,1800 [facility] Last Admin: 11/22/16 08:46 Dose: 12.5 mg Rosuvastatin Calcium (Crestor) 20 mg PO HS [facility] Last Admin: 11/21/16 21:52 Dose: 20 mg - Labs Labs: 11/22/16 06:48 11/22/16 06:48 PT 13.9 SECONDS (9.7-12.2) H 11/22/16 13:44 INR 1.2 11/22/16 13:44 APTT 30 SECONDS (21-34) 11/20/16 13:49 - Neurological Exam Additional comments: Neurologically unchanged compared with yesterday's examination. Assessment and Plan (1) Stroke Assessment & Plan: Stable. Will likely be discharged to subacute rehab after his INR is therapeutic. No further recommendations at this time. Status: Acute
--- NOTE | 2016-11-22 16:28 | PN ---
DATE: SUBJECTIVE: The patient has difficulty standing or walking steady. He denies any headache or blurry vision. PHYSICAL EXAMINATION: VITAL SIGNS: Blood pressure 114/69, heart rate 66, temperature 98.2, respirations 18. HEENT: Normocephalic. CHEST: Clear. HEART: S1 and S2, regular. EXTREMITIES: No edema. LABORATORY DATA: Hemoglobin and hematocrit 12.4 and 36.3, platelet count is 87,000 below normal, white count is 3.3, which is slightly below normal. Today's SMA-7 is within normal limits except for chloride of 108. Yesterday's repeat head CT scan revealed subacute old infarcts in the right cerebellar, medial left frontal and high right frontal, unchanged since 11/20 during his current admission. Arterial Doppler of the lower extremities, right waveform do not suggest any significant peripheral vascular disease, left waveform do not suggest any significant peripheral vascular disease. ASSESSMENT: 1. Ischemic cardiomyopathy. 2. Recurrent cerebrovascular accident. 3. Hypomagnesemia. The patient's magnesium level is 1.5 RECOMMENDATIONS: Continue aspirin 325 mg once a day, Crestor 20 mg once a day, Lopressor 12.5 mg once a day, subcutaneous Lovenox at 60 mg twice a day, Plavix 75 mg once a day, Zestril 2.5 mg daily. Continue current magnesium sulfate replacement, which we will start at 1 g today. Rusty Steiner MD
[2016-11-23] MEDS: Sodium Chloride 0.9% 1,000 ML IV SCH ×3 (00:58→11:16)
[2016-11-23 06:24] LABS: BASO % 0.3 % (0.0-2.0); HEMATOCRIT 36.2 % (35.0-51.0); LYMPH # 1.7 K/uL (1.0-4.3); MEAN CELL VOLUME 97.5 fL (80.0-94.0); MEAN CORPUSCULAR HEMOGLOBIN 33.4 pg (27.0-31.0); MEAN CORPUSCULAR HGB CONC 34.2 g/dL (33.0-37.0); MEAN PLATELET VOLUME 9.2 fL (7.2-11.7); MONO # 0.3 K/uL (0.0-0.8); MONO % 10.5 % (0.0-10.0); RED CELL DISTRIBUTION WIDTH 13.3 % (11.5-14.5)
[2016-11-23 06:39] LABS: ALB/GLOB RATIO 1.1 (1.0-2.1); ALKALINE PHOSPHATASE 69 U/L (38-126); ALT/SGPT 35 U/L (21-72); AST/SGOT 23 U/L (17-59); BILIRUBIN,TOTAL 0.3 mg/dL (0.2-1.3); BLOOD UREA NITROGEN 14 mg/dL (9-20); CALCIUM 8.6 mg/dl (8.6-10.4); CARBON DIOXIDE 28 mmol/L (22-30); CHLORIDE 103 mmol/L (98-107); GFR AFRICAN-AMERICAN > 60; GLUCOSE,RANDOM 84 mg/dL (75-110); MAGNESIUM 1.6 mg/dL (1.6-2.3); POTASSIUM 4.3 mmol/L (3.6-5.2); SODIUM 141 mmol/L (132-148); TOTAL PROTEIN 5.7 g/dL (6.3-8.3)
[2016-11-23] MEDS: Enoxaparin 60 mg Syringe SC SCH ×2 (09:22→21:01)
[2016-11-23 12:15] LABS: INR 1.2
--- NOTE | 2016-11-23 13:42 | CARD ---
APPROVED REPORT EKG Measurement Heart [id number] <Conclusion> Sinus bradycardia Nonspecific T wave abnormality Abnormal ECG
--- NOTE | 2016-11-23 13:43 | CARD ---
APPROVED REPORT EKG Measurement Heart [id number] <Conclusion> Normal sinus rhythm with sinus arrhythmia Nonspecific T wave abnormality Abnormal ECG
[2016-11-23 15:49] LABS: RESULT Negative (Negative); UFH SRA RESULT Negative (Negative)
--- NOTE | 2016-11-23 16:42 | PN ---
DATE: SUBJECTIVE: The patient has better power in his lower extremity. He denies any speech difficulty or dizziness. PHYSICAL EXAMINATION VITAL SIGNS: Blood pressure 124/82, heart rate 66, temperature 98, respiration 18. HEENT: Normocephalic. CHEST: Clear. HEART: S1 and S2 regular. EXTREMITIES: No edema. LABORATORY DATA: Today's SMA-7 is within normal limits. Hemoglobin and hematocrit 12.4 and 36.2, white count 3.0, platelet count is 79,000. Today's INR is 1.2. ASSESSMENT: 1. Ischemic cardiomyopathy. 2. Recurrent stroke, most likely embolic phenomena from the left ventricular thrombus and smoke. CONDITIONS: Continue subcutaneous Lovenox at 60 mg once a day, Lopressor 12.5 mg once a day, Crestor 20 mg once a day, aspirin 81 mg once a day, Zestril 2.5 mg once a day. The patient will receive Coumadin today. Rusty Steiner MD
--- NOTE | 2016-11-23 17:45 | CP.PCM.PN ---
<YanickShahla - Last Filed: 11/23/16 17:41> Subjective - Date & Time of Evaluation Date of Evaluation: 11/23/16 Time of Evaluation: 17:45 - Subjective Subjective: Patient was seen and examined at bedside and states that he feels fine and that he is regaining strength in his left leg. He complains of muscle spasms in both of his legs and burning pain in the ball and sole of his right foot. He states that the pain began in his right ankle and progressed to his foot. He rates the pain a 1/10 and says that it lasted about 1 hour but claims that he was able to ignore the pain. This is not new for the patient. ROS: General: (-) Fever or chills HEENT: (-) [place] or sore throat Cardio: (-) Chest pain or palpitations Resp: (-) SOB or cough GI: (-) N/V/D/C/Abdominal pain : (-) Hematuria or dysuria MSK: (-) LE swelling or pain Objective - Vital Signs/Intake and Output Vital Signs (last 24 hours): Temp Pulse Resp BP Pulse Ox 98.2 F 61 18 113/64 99 11/23/16 15:24 11/23/16 15:24 11/23/16 15:24 11/23/16 15:24 11/23/16 15:24 Intake and Output: 11/23/16 11/23/16 06:59 18:59 Intake Total 1400 1600 Output Total 1300 400 Balance 100 1200 - Medications Medications: Current Medications Aspirin (Aspirin Chewable) 81 mg PO DAILY [facility] Last Admin: 11/23/16 09:21 Dose: 81 mg Clopidogrel Bisulfate (Plavix) 75 mg PO DAILY [facility] Last Admin: 11/23/16 09:21 Dose: 75 mg Enoxaparin Sodium (Lovenox) 60 mg SC Q12 [facility] Last Admin: 11/23/16 09:22 Dose: 60 mg Sodium Chloride (Sodium Chloride 0.9%) 1,000 mls @ 100 mls/hr IV .Q10H [facility] Last Admin: 11/23/16 11:16 Dose: 100 mls/hr Lisinopril (Zestril) 2.5 mg PO DAILY [facility] Last Admin: 11/23/16 09:21 Dose: 2.5 mg Metoprolol Tartrate (Lopressor) 12.5 mg PO 0800,1800 [facility] Last Admin: 11/23/16 08:38 Dose: 12.5 mg Rosuvastatin Calcium (Crestor) 20 mg PO HS [facility] Last Admin: 11/22/16 21:42 Dose: 20 mg Warfarin Sodium (Coumadin) 5 mg PO 1800 [facility] Stop: 11/23/16 18:01 - Labs Labs: 11/23/16 06:15 11/23/16 06:15 PT 13.1 SECONDS (9.7-12.2) H 11/23/16 11:51 INR 1.2 11/23/16 11:51 APTT 30 SECONDS (21-34) 11/20/16 13:49 - Constitutional Appears: Non-toxic, No Acute Distress - Head Exam Head Exam: NORMAL INSPECTION - Eye Exam Eye Exam: EOMI - ENT Exam ENT Exam: Mucous Membranes Moist - Respiratory Exam Respiratory Exam: Clear to Ausculation Bilateral, NORMAL BREATHING PATTERN - Cardiovascular Exam Cardiovascular Exam: REGULAR RHYTHM, +S1, +S2 - GI/Abdominal Exam GI & Abdominal Exam: Soft, Normal Bowel Sounds. absent: Distended, Tenderness - Extremities Exam Extremities Exam: Normal Inspection. absent: Pedal Edema - Neurological Exam Neurological Exam: Alert, Awake Neuro motor strength exam: Left Upper Extremity: 5, Right Upper Extremity: 5, Left Lower Extremity: 5, Right Lower Extremity: 4 - Psychiatric Exam Psychiatric exam: Normal Affect, Normal Mood - Skin Skin Exam: Dry, Intact, Normal Color, Warm Assessment and Plan - Assessment and Plan (Free Text) Assessment: 1) Acute CVA * Neuro consult (Gideon) - 11/21 This is a subacute to chronic stroke, but the patient has some new symptoms. Will start IV heparin or Lovenox and bridge to coumadin to maintain an INR of 2-3. A repeat CT head can be done in 12-16 hours to evaluate for any hemorrhagic conversion. The patient may be transferred to acute rehab if stable and INR is therapeutic. * F/U Thyroid panel, B12, CRP, * ESR: 5 * 11/22 CT head: no mass or hemorrhage seen * MRI brain w/o contrast: Chronic infarctions of the medial left frontal lobe and the basilar portion of the right cerebellum are identified with trace possible restricted diffusion in foci in the periphery of the left frontal infarct. Trace hemosiderin is also seen related to the left frontal infarct without gross intracranial hemorrhage evident. Gyriform enhancement seen related to the medial left frontal infarct. For chronic lacune infarction seen the right parietal lobe as well. Age related neuro degenerative changes are appreciated. * MRA head/neck w/o contrast: mild asymmetry and left v right perisylvian MCA branches (may be normal variation); no significant stenosis of cervical segments of common and internal carotid arteries b/l * F/U Protein C & S, antithrombin III, Factor V leiden, antiphospholipid, anticardiolipin (has been off Coumadin for 1.5 weeks) * Echo with bubble study: cardiomyopathy 2/2 Hx [place] without PFO * Therapeutic lovenox (60 mg QD) * Coumadin 5 mg * Arterial duplex of LEs negative for disease * ASA 325 mg PO daily * Plavix 75 mg PO daily * Crestor 20 mg PO HS * Metoprolol 12.5 mg BID hold SBP<100 and HR<60 * PT/OT eval * NS 100 cc/hr 2) Impaired glucose tolerance * A1c: 6.0; prior a1c in prior hospital paperwork is 5.5 * repeat in 1 year to prevent overt diabetes 3) Hypertension * Metoprolol 12.5mg PO BID (hold SBP<100 and HR<60 * Lisinopril 2.5 mg PO QD (hold SBP<100 * NS 100 cc/hr 4) Pancytopenia * History of pancytopenia per hospital discharge summary * WBC, and platelets low * HIV, Hep panel negative * F/U UDS * F/U Heme/Onc consult (Dr. Chiang) * F/U Abdominal US 5) History of Chronic Kidney Disease * History of CKD per hospital discharge summary * monitor BUN/Cr * GFR >60 6) Hx CAD * Cardioloft consult ([facility]) - recs appreciated * ASA 81mg PO daily, plavix 75mg PO daily, crestor 20mg POqHS * Metoprolol 12.5mg PO bid * Lisinopril 2.5mg PO daily * history of 2 stents; 2 prior heart attacks; prior cath 2011 (stent of RCA; patient has report at bedside) * RUSSEL with ECG neg x3 * Note: cardiac hx (2 [place], CAD with stents, possible paroxysmal atrial fibrillation) 7) Diarrhea * f/u C Diff 8) Prophylactic Measure * Thrombocytopenia noted on review of EMR and pancytopenia prior DC summary; no bleeding episodes noted * PT/OT eval * monitor on Telemetry <Gayatri Cullen V - Last Filed: 11/24/16 06:22> Objective - Vital Signs/Intake and Output Vital Signs (last 24 hours): Temp Pulse Resp BP Pulse Ox 98.3 F 56 L 20 117/67 98 11/24/16 04:05 11/24/16 04:05 11/24/16 04:05 11/24/16 04:05 11/24/16 04:05 Intake and Output: 11/23/16 11/24/16 18:59 06:59 Intake Total 1600 1100 Output Total 400 400 Balance 1200 700 - Medications Medications: Current Medications Aspirin (Aspirin Chewable) 81 mg PO DAILY [facility] Last Admin: 11/23/16 09:21 Dose: 81 mg Clopidogrel Bisulfate (Plavix) 75 mg PO DAILY [facility] Last Admin: 11/23/16 09:21 Dose: 75 mg Enoxaparin Sodium (Lovenox) 60 mg SC Q12 [facility] Last Admin: 11/23/16 21:01 Dose: 60 mg Sodium Chloride (Sodium Chloride 0.9%) 1,000 mls @ 100 mls/hr IV .Q10H [facility] Last Admin: 11/24/16 02:55 Dose: 100 mls/hr Lisinopril (Zestril) 2.5 mg PO DAILY [facility] Last Admin: 11/23/16 09:21 Dose: 2.5 mg Metoprolol Tartrate (Lopressor) 12.5 mg PO 0800,1800 [facility] Last Admin: 11/23/16 20:10 Dose: 12.5 mg Rosuvastatin Calcium (Crestor) 20 mg PO HS [facility] Last Admin: 11/23/16 21:01 Dose: 20 mg - Labs Labs: 11/23/16 06:15 11/23/16 06:15 PT 13.1 SECONDS (9.7-12.2) H 11/23/16 11:51 INR 1.2 11/23/16 11:51 APTT 30 SECONDS (21-34) 11/20/16 13:49 Attending/Attestation - Attestation I have personally seen and examined this patient.: Yes I have fully participated in the care of the patient.: Yes I have reviewed all pertinent clinical information, including history, physical exam and plan: Yes Notes (Text): This is late computer entry for 11/23/16. Patient seen, examined and case discussed with day-time resident during morning rounds Patient reports he is feeling good. No acute change. Currently on bridge from lovenox to Coumadin. INR: 1.2 Coumadin 5mg ordered for today Patient is pancytopenic. Patient denies prior workup for pancytopenia. HIV is negative. Hepatitis panel is negative and UDS is negative. Heme-onc on called has not responded back 48 hours. Will cancel consult to Dr. Hannah; and consult Carly Chiang, who recommended for abdominal US. HIT antibody negative. Serotonin release assay negative. Anticardiolipin negative. Assessment/Plan 1) Subacute on Chronic CVA * Neuro consult (Gideon) - recs appreciated * Cardiology consult (Dr. Steiner)--recs appreciated * F/U Protein C & S, antithrombin III, Factor V leiden, antiphospholipid, anticardiolipin (has been off Coumadin for 1.5 weeks)-->pending * F/U Echo with bubble study r/o PFO-->patient does not have PFO. * F/U Thyroid panel, B12, CRP, ESR * F/U repeat CT Head to be done at 6am on 11/22/16 to monitor for hemorrhagic in light of anticoagulation-->no hemorrhagic conversion * Patient to be bridged to Coumadin in light of cardiomyopathy with residual apical thrombus; patient is high risk for recurrent stroke discussed with both cardiology and neurology. Discussed with patient at bedside during rounds, who is aware. * MRI brain w/o contrast: Chronic infarctions of the medial left frontal lobe and the basilar portion of the right cerebellum are identified with trace possible restricted diffusion in foci in the periphery of the left frontal infarct. Trace hemosiderin is also seen related to the left frontal infarct without gross intracranial hemorrhage evident. Gyriform enhancement seen related to the medial left frontal infarct. For chronic lacune infarction seen the right parietal lobe as well. Age related neuro degenerative changes are appreciated. * MRA head/neck w/o contrast: mild asymmetry and left v right perisylvian MCA branches (may be normal variation); no significant stenosis of cervical segments of common and internal carotid arteries b/l * F/U Protein C & S, antithrombin III, Factor V leiden, antiphospholipid, anticardiolipin (has been off Coumadin for 1.5 weeks)-->pending * Echo with bubble study: cardiomyopathy 2/2 Hx [place] without PFO * Therapeutic lovenox (60 mg Q12) started 11/21; to bridge to Coumadin ; Coumadin 5mg PO tonight; f/u INR * arterial duplex of LEs: negative * ASA 325 mg PO daily-->81mg PO daily * Plavix 75 mg PO daily * Crestor 20 mg PO HS * Metoprolol 12.5 mg BID hold SBP<100 and HR<60 * PT/OT eval * NS 100 cc/hr * Coumadin 5mg PO tonight; on Lovenox bridge 2) Impaired glucose tolerance * A1c: 6.0; prior a1c in prior hospital paperwork is 5.5 * repeat in 1 year to prevent overt diabetes 3) Hypertension * Metoprolol 12.5mg PO BID (hold SBP<100 and HR<60 * Lisinopril 2.5 mg PO QD (hold SBP<100) * NS 100 cc/hr 4) Pancytopenia * History of pancytopenia per hospital discharge summary * WBC, and platelets low * HIV, Hep panel, UDS which are negative * HIT antibodies negative * Heme-onc consult: Dr Ana Chiang-->help appreciated; recommended for abdominal US 5) History of Chronic Kidney Disease * History of CKD per hospital discharge summary * monitor BUN/Cr * GFR >60 6) Hx CAD * Cardiology consult ([facility]) - recs appreciated * ASA 81mg PO daily, plavix 75mg PO daily, crestor 20mg POqHS * Metoprolol 12.5mg PO bid * Lisinopril 2.5mg PO daily * history of 2 stents; 2 prior heart attacks; prior cath 2011 (stent of RCA; patient has report at bedside) * RUSSEL X3 negative * Note: cardiac hx (2 [place], CAD with stents) 7) Prophylactic Measure * Thrombocytopenia noted on review of EMR and pancytopenia prior DC summary; no bleeding episodes noted-->patient is high risk for recurrent stroke secondary to cardimyopathy-->discussed with neurology and cardiology. Patient started on therapuetic Lovenox to bridge to Coumadin. NOAC not appropriate for patient discussed with both neurology and cardiology. * PT/OT eval-->recommend acute rehab; will need to follow-up with case management. * monitor on Telemetry
--- NOTE | 2016-11-23 20:10 | US ---
EXAM: US Abdomen Complete EXAM DATE/TIME: Exam ordered 11/23/2016 2:49 PM CLINICAL HISTORY: 61 years old, male; Condition or disease; Other: Pancytopenia , ; additional info: Pancytopenia R/O splenomegaly, liver disease TECHNIQUE: Real-time ultrasound of the abdomen (complete) with image documentation. COMPARISON: No relevant prior studies available. FINDINGS: Liver: The liver measures 14.8 cm in craniocaudal span. There is normal blood flow in the main portal vein. No intrahepatic bile duct dilation. Gallbladder: The gallbladder is partially contracted. No gallstones are seen. Common bile duct: The common bile duct measures 3 mm. No stones. No dilation. Pancreas: Unremarkable as visualized. The pancreatic tail is not well-seen Kidneys: The right kidney measures 9.7 x 3.6 x 4.8 cm. There is a 9 mm simple cyst in the upper pole of the right kidney. The left kidney measures 9.8 x 4.9 x 6.1 cm. Complex hypoechoic lesion is noted in the upper pole the left kidney measuring 1.4 x 1.3 x 1 cm. Multiple thin linear internal septations are present. There is through-transmission of sound. There is no vascularity on color Doppler examination. No stones. Spleen: The spleen measures 8.5 cm in craniocaudal span. Aorta: The mid and distal abdominal aorta are not well-seen due to bowel gas. Inferior vena cava: Unremarkable. Free fluid: A small amount of free fluid is noted in the hepatorenal space. IMPRESSION: 1. The spleen measures 8.5 cm in craniocaudal span. 2. The liver has a normal appearance 3. Simple cyst in the upper pole right kidney. 4. Complex cyst noted in the upper pole of the left kidney. CT or MR might be considered for definitive characterization.
[2016-11-23 22:55] LABS: HEPARIN-IND PLATELET AB Negative (Negative)
[2016-11-24] MEDS: Sodium Chloride 0.9% 1,000 ML IV SCH ×4 (01:15→21:42)
[2016-11-24 02:20] LABS: B2 GLYCOPROTEIN I AB(IGA) <9 SAU (<=20); B2 GLYCOPROTEIN I AB(IGG) <9 SGU (<=20); B2 GLYCOPROTEIN I AB(IGM) <9 SMU (<=20)
--- NOTE | 2016-11-24 04:09 | CP.PCM.CON ---
History of Present Illness - History of Present Illness History of Present Illness: 61 year old male with a history of CAD s/p stent, AK, CVA, afib, admitted with CVA, found to be pancytopenic. The patient reports to being told his blood counts were low at the time of his AK about 5 years ago. He denies abnormal bleeding and bruising. Past medical history: CAD s/p stent, AK, CVA, afib Past surgical history: None Family history: Grandfather may have had a stroke Social history: Denies tobacco, alcohol, and illicit drug use. Allergies: NKA Review of systems: All remaining review of systems including HEENT, cardiovascular, respiratory, gastrointestinal, genitourinary, musculoskeletal, dermatologic, neurologic, and psychiatric are negative unless mentioned in the HPI. Past Patient History - Past Medical History & Family History Past Medical History?: Yes - Past Social History Smoking Status: Never Smoked - CARDIAC Hx Hypertension: Yes - PULMONARY Hx Respiratory Disorders: No - NEUROLOGICAL HX Cerebrovascular Accident: Yes (residual right side weakness) - HEENT Hx HEENT Problems: No - RENAL Hx Chronic Kidney Disease: No - ENDOCRINE/METABOLIC Hx Endocrine Disorders: No - HEMATOLOGICAL/ONCOLOGICAL Hx Blood Disorders: No - INTEGUMENTARY Hx Dermatological Problems: No - MUSCULOSKELETAL/RHEUMATOLOGICAL Hx Musculoskeletal Disorders: No Hx Falls: No - GASTROINTESTINAL Hx Gastrointestinal Disorders: No - GENITOURINARY/GYNECOLOGICAL Hx Genitourinary Disorders: No - PSYCHIATRIC Hx Psychophysiologic Disorder: No Hx Substance Use: No - SURGICAL HISTORY Hx Surgeries: Yes Hx Cardiac Catheterization: Yes - ANESTHESIA Hx Anesthesia: Yes Hx Anesthesia Reactions: No Hx Malignant Hyperthermia: No Has any member of the family had a problem w/ anesthesia?: No Meds Allergies/Adverse Reactions: Allergies Allergy/AdvReac Type Severity Reaction Status Date / Time No Known Allergies Allergy Unverified 11/20/16 12:48 - Medications Medications: Current Medications Aspirin (Aspirin Chewable) 81 mg PO DAILY [facility] Last Admin: 11/23/16 09:21 Dose: 81 mg Clopidogrel Bisulfate (Plavix) 75 mg PO DAILY [facility] Last Admin: 11/23/16 09:21 Dose: 75 mg Enoxaparin Sodium (Lovenox) 60 mg SC Q12 [facility] Last Admin: 11/23/16 21:01 Dose: 60 mg Sodium Chloride (Sodium Chloride 0.9%) 1,000 mls @ 100 mls/hr IV .Q10H [facility] Last Admin: 11/24/16 02:55 Dose: 100 mls/hr Lisinopril (Zestril) 2.5 mg PO DAILY [facility] Last Admin: 11/23/16 09:21 Dose: 2.5 mg Metoprolol Tartrate (Lopressor) 12.5 mg PO 0800,1800 [facility] Last Admin: 11/23/16 20:10 Dose: 12.5 mg Rosuvastatin Calcium (Crestor) 20 mg PO HS [facility] Last Admin: 11/23/16 21:01 Dose: 20 mg Physical Exam - Head Exam Head Exam: ATRAUMATIC - Eye Exam Eye Exam: Normal appearance - ENT Exam ENT Exam: Mucous Membranes Dry - Respiratory Exam Respiratory Exam: NORMAL BREATHING PATTERN - Cardiovascular Exam Cardiovascular Exam: +S1, +S2 - GI/Abdominal Exam GI & Abdominal Exam: Normal Bowel Sounds - Extremities Exam Extremities exam: Positive for: normal inspection - Neurological Exam Neurological exam: Oriented x3 - Psychiatric Exam Psychiatric exam: Normal Affect, Normal Mood Results - Vital Signs Recent Vital Signs: Last Vital Signs Temp 98.1 F 11/23/16 23:00 Pulse 54 L 11/24/16 03:00 Resp 20 11/23/16 23:00 BP 122/72 11/23/16 23:00 Pulse Ox 98 11/23/16 23:00 - Labs Result Diagrams: 11/23/16 06:15 11/23/16 06:15 Labs: Laboratory Results - last 24 hr 11/20/16 11/20/16 11/20/16 19:59 19:59 19:59 WBC RBC Hgb Hct MCV MCH MCHC RDW Plt Count MPV Neut % (Auto) Lymph % (Auto) [place] % (Auto) Eos % (Auto) Baso % (Auto) Neut # Lymph # [place] # Eos # Baso # PT INR Protein C Activity 77 Protein S Activity 102 Antithrombin III Activ 97 Hep-Abbie Thrombocytopen Sodium Potassium Chloride Carbon Dioxide Anion Gap BUN Creatinine Est GFR ( Amer) Est GFR (Non-Af Amer) POC Glucose (mg/dL) Random Glucose Calcium Phosphorus Magnesium Total Bilirubin AST ALT Alkaline Phosphatase Total Protein Albumin Globulin Albumin/Globulin Ratio Zoio-4-[id number] Ab <9 Beta-2 GPI IgG Ab <9 Beta-2 GPI IgM Ab <9 Heparin-induced Plt Ab KELY UFH Low Dose 0.1 KELY UFH Low Dose 0.5 KELY UFH High Dose 100 Anti-Cardiolipin IgG Ab <14 Anti-Cardiolipin IgM Ab <12 11/21/16 11/21/16 11/23/16 13:47 13:47 06:05 WBC RBC Hgb Hct MCV MCH MCHC RDW Plt Count MPV Neut % (Auto) Lymph % (Auto) [place] % (Auto) Eos % (Auto) Baso % (Auto) Neut # Lymph # [place] # Eos # Baso # PT INR Protein C Activity Protein S Activity Antithrombin III Activ Hep-Abbie Thrombocytopen Negative Sodium Potassium Chloride Carbon Dioxide Anion Gap BUN Creatinine Est GFR ( Amer) Est GFR (Non-Af Amer) POC Glucose (mg/dL) 88 Random Glucose Calcium Phosphorus Magnesium Total Bilirubin AST ALT Alkaline Phosphatase Total Protein Albumin Globulin Albumin/Globulin Ratio Caxa-2-Ymdrfyziqrtb Ab Beta-2 GPI IgG Ab Beta-2 GPI IgM Ab Heparin-induced Plt Ab Negative KELY UFH Low Dose 0.1 0 KELY UFH Low Dose 0.5 0 KELY UFH High Dose 100 0 Anti-Cardiolipin IgG Ab Anti-Cardiolipin IgM Ab 11/23/16 11/23/16 11/23/16 06:15 06:15 11:51 WBC 3.0 L RBC 3.71 L Hgb 12.4 Hct 36.2 MCV 97.5 H MCH 33.4 H MCHC 34.2 RDW 13.3 Plt Count 79 L MPV 9.2 Neut % (Auto) 31.2 L Lymph % (Auto) 57.0 H [place] % (Auto) 10.5 H Eos % (Auto) 1.0 Baso % (Auto) 0.3 Neut # 0.9 L Lymph # 1.7 [place] # 0.3 Eos # 0.0 Baso # 0.0 PT 13.1 H INR 1.2 Protein C Activity Protein S Activity Antithrombin III Activ Hep-Abbie Thrombocytopen Sodium 141 Potassium 4.3 Chloride 103 Carbon Dioxide 28 Anion Gap 13 BUN 14 Creatinine 1.2 Est GFR ( Amer) > 60 Est GFR (Non-Af Amer) > 60 POC Glucose (mg/dL) Random Glucose 84 Calcium 8.6 Phosphorus 4.0 Magnesium 1.6 Total Bilirubin 0.3 AST 23 ALT 35 Alkaline Phosphatase 69 Total Protein 5.7 L Albumin 2.9 L Globulin 2.7 Albumin/Globulin Ratio 1.1 Syiz-0-Kdlkrsdemvwz Ab Beta-2 GPI IgG Ab Beta-2 GPI IgM Ab Heparin-induced Plt Ab KELY UFH Low Dose 0.1 KELY UFH Low Dose 0.5 KELY UFH High Dose 100 Anti-Cardiolipin IgG Ab Anti-Cardiolipin IgM Ab 11/23/16 11/23/16 11/23/16 12:04 17:07 21:44 WBC RBC Hgb Hct MCV MCH MCHC RDW Plt Count MPV Neut % (Auto) Lymph % (Auto) [place] % (Auto) Eos % (Auto) Baso % (Auto) Neut # Lymph # [place] # Eos # Baso # PT INR Protein C Activity Protein S Activity Antithrombin III Activ Hep-Abbie Thrombocytopen Sodium Potassium Chloride Carbon Dioxide Anion Gap BUN Creatinine Est GFR ( Amer) Est GFR (Non-Af Amer) POC Glucose (mg/dL) 111 H 84 146 H Random Glucose Calcium Phosphorus Magnesium Total Bilirubin AST ALT Alkaline Phosphatase Total Protein Albumin Globulin Albumin/Globulin Ratio Ikvc-6-Stxffuffojmd Ab Beta-2 GPI IgG Ab Beta-2 GPI IgM Ab Heparin-induced Plt Ab KELY UFH Low Dose 0.1 KELY UFH Low Dose 0.5 KELY UFH High Dose 100 Anti-Cardiolipin IgG Ab Anti-Cardiolipin IgM Ab Assessment & Plan (1) Pancytopenia Assessment and Plan: mild neutropenia will check HIV, hepatitis panel check US abdomen to evaluate for liver pathology and splenomegaly monoclonal protein evaluation okay for therapeutic anticoagulation if plt above 50,000 outpatient f/u for bone marrow determination Thank you for this interesting consult. Status: Acute
[2016-11-24 05:40] LABS: CARDIOLIPIN AB (IGA) <11 APL (<=11)
[2016-11-24 06:40] LABS: BASO % 0.2 % (0.0-2.0); EOS % 0.9 % (0.0-4.0); HEMATOCRIT 35.8 % (35.0-51.0); INR 1.2; LYMPH # 1.6 K/uL (1.0-4.3); LYMPH % 61.6 % (20.0-40.0); MEAN CELL VOLUME 97.2 fL (80.0-94.0); MEAN CORPUSCULAR HEMOGLOBIN 33.3 pg (27.0-31.0); MEAN CORPUSCULAR HGB CONC 34.3 g/dL (33.0-37.0); MEAN PLATELET VOLUME 9.6 fL (7.2-11.7); MONO # 0.3 K/uL (0.0-0.8); MONO % 12.1 % (0.0-10.0); NRBC % 0.2 % (0.0-2.0); RED CELL DISTRIBUTION WIDTH 12.8 % (11.5-14.5); WHITE BLOOD COUNT 2.5 K/uL (4.8-10.8)
[2016-11-24 06:53] LABS: CHLORIDE 103 mmol/L (98-107)
[2016-11-24 06:54] LABS: SODIUM 138 mmol/L (132-148)
[2016-11-24 06:56] LABS: ALKALINE PHOSPHATASE 49 U/L (38-126); ALT/SGPT 34 U/L (21-72); AST/SGOT 21 U/L (17-59); BILIRUBIN,TOTAL 0.4 mg/dL (0.2-1.3); BLOOD UREA NITROGEN 11 mg/dL (9-20); CALCIUM 8.9 mg/dl (8.6-10.4); CARBON DIOXIDE 28 mmol/L (22-30); GFR AFRICAN-AMERICAN > 60; GLUCOSE,RANDOM 79 mg/dL (75-110); PHOSPHOROUS 4.1 mg/dL (2.5-4.5); TOTAL PROTEIN 5.6 g/dL (6.3-8.3)
[2016-11-24 06:57] LABS: MAGNESIUM 1.5 mg/dL (1.6-2.3)
[2016-11-24 07:00] LABS: ALB/GLOB RATIO 1.2 (1.0-2.1)
[2016-11-24 07:56] LABS: FOLATE 7.7 ng/mL
[2016-11-24] MEDS: Enoxaparin 60 mg Syringe SC SCH ×2 (09:27→21:43)
[2016-11-24] MEDS ORDERED: Magnesium Sulfate 1 gm in D5W 1 GM/100 ML BAG IVPB ONE (12:49)
[2016-11-24 14:27] LABS: CARDIOLIPIN AB (IGA) <11 APL (<=11)
--- NOTE | 2016-11-24 17:33 | CP.PCM.PN ---
<YanickShahla - Last Filed: 11/24/16 21:13> Subjective - Date & Time of Evaluation Date of Evaluation: 11/24/16 Time of Evaluation: 17:33 - Subjective Subjective: The patient was seen and examined at bedside and states that he feels fine and slept well. He says that he has seen improvement in the strength of his left big toe, however, on physical exam he was unable to wiggle his toe. He denies any burning in his feet and states the muscle spasms in his legs have subsided. He also denies any numbness or tingling. He complains of a gassy sensation in his LUQ that he says traveled down to the left testicle this morning but he denies any pain. ROS: General: (-) Fever or chills HEENT: (-) [place] or visual changes Cardio: (-) Chest pain or palpitations Resp: (-) SOB or cough GI: (-) N/V/D/C/Abdominal pain : (-) Hematuria or dysuria MSK: (-) LE swelling or pain Objective - Vital Signs/Intake and Output Vital Signs (last 24 hours): Temp Pulse Resp BP Pulse Ox 97.4 F L 68 18 102/62 100 11/24/16 15:00 11/24/16 15:00 11/24/16 15:00 11/24/16 15:00 11/24/16 15:00 Intake and Output: 11/24/16 11/24/16 06:59 18:59 Intake Total 1100 Output Total 800 Balance 300 - Medications Medications: Current Medications Aspirin (Aspirin Chewable) 81 mg PO DAILY [facility] Last Admin: 11/24/16 09:26 Dose: 81 mg Clopidogrel Bisulfate (Plavix) 75 mg PO DAILY [facility] Last Admin: 11/24/16 09:27 Dose: 75 mg Enoxaparin Sodium (Lovenox) 60 mg SC Q12 [facility] Last Admin: 11/24/16 09:27 Dose: 60 mg Sodium Chloride (Sodium Chloride 0.9%) 1,000 mls @ 100 mls/hr IV .Q10H [facility] Last Admin: 11/24/16 13:40 Dose: 100 mls/hr Lisinopril (Zestril) 2.5 mg PO DAILY [facility] Last Admin: 11/24/16 09:27 Dose: 2.5 mg Metoprolol Tartrate (Lopressor) 12.5 mg PO 0800,1800 [facility] Last Admin: 11/24/16 09:26 Dose: 12.5 mg Rosuvastatin Calcium (Crestor) 20 mg PO HS [facility] Last Admin: 11/23/16 21:01 Dose: 20 mg Warfarin Sodium (Coumadin) 7.5 mg PO 1800 [facility] Stop: 11/24/16 18:01 - Labs Labs: 11/24/16 06:28 11/24/16 06:28 PT 13.0 SECONDS (9.7-12.2) H 11/24/16 06:28 INR 1.2 11/24/16 06:28 APTT 30 SECONDS (21-34) 11/20/16 13:49 - Constitutional Appears: Non-toxic, No Acute Distress - Head Exam Head Exam: NORMAL INSPECTION - Eye Exam Eye Exam: EOMI - ENT Exam ENT Exam: Mucous Membranes Moist - Respiratory Exam Respiratory Exam: Clear to Ausculation Bilateral, NORMAL BREATHING PATTERN - Cardiovascular Exam Cardiovascular Exam: REGULAR RHYTHM, +S1, +S2 - GI/Abdominal Exam GI & Abdominal Exam: Soft, Normal Bowel Sounds. absent: Tenderness - Extremities Exam Extremities Exam: Normal Inspection. absent: Pedal Edema, Tenderness - Neurological Exam Neurological Exam: Alert, Awake Neuro motor strength exam: Left Upper Extremity: 5, Right Upper Extremity: 5, Left Lower Extremity: 5, Right Lower Extremity: 4 - Psychiatric Exam Psychiatric exam: Normal Affect, Normal Mood - Skin Skin Exam: Dry, Intact, Normal Color, Warm Assessment and Plan - Assessment and Plan (Free Text) Assessment: 1) Acute CVA * Neuro consult (Gideon) - 11/21 This is a subacute to chronic stroke, but the patient has some new symptoms. Will start IV heparin or Lovenox and bridge to coumadin to maintain an INR of 2-3. A repeat CT head can be done in 12-16 hours to evaluate for any hemorrhagic conversion. The patient may be transferred to acute rehab if stable and INR is therapeutic. * TSH 1.11, Free T4 1.18, B12 442, CRP 0.60 * ESR: 5 * 11/22 CT head: no mass or hemorrhage seen * MRI brain w/o contrast: Chronic infarctions of the medial left frontal lobe and the basilar portion of the right cerebellum are identified with trace possible restricted diffusion in foci in the periphery of the left frontal infarct. Trace hemosiderin is also seen related to the left frontal infarct without gross intracranial hemorrhage evident. Gyriform enhancement seen related to the medial left frontal infarct. For chronic lacune infarction seen the right parietal lobe as well. Age related neuro degenerative changes are appreciated. 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 PFO * Therapeutic lovenox (60 mg QD) * Coumadin 5 mg increased to 7.5 mg (11/24) * Arterial duplex of LEs negative for disease * ASA 325 mg PO daily * Plavix 75 mg PO daily * Crestor 20 mg PO HS * Metoprolol 12.5 mg BID hold SBP<100 and HR<60 * PT/OT eval * NS 100 cc/hr 2) Impaired glucose tolerance * A1c: 6.0; prior a1c in prior hospital paperwork is 5.5 * repeat in 1 year to prevent overt diabetes 3) Hypertension * Metoprolol 12.5mg PO BID (hold SBP<100 and HR<60 * Lisinopril 2.5 mg PO QD (hold SBP<100 * NS 100 cc/hr 4) Pancytopenia * History of pancytopenia per hospital discharge summary * WBC, and platelets low * HIV, Hep panel negative * F/U UDS * F/U Heme/Onc consult (Dr. Chiang) * Abdominal US showed no splenomegaly or hepatomegaly 5) History of Chronic Kidney Disease * History of CKD per hospital discharge summary * monitor BUN/Cr * GFR >60 6) Hx CAD * Cardioloft consult (Oneyda) - recs appreciated * ASA 81mg PO daily, plavix 75mg PO daily, crestor 20mg POqHS * Metoprolol 12.5mg PO bid * Lisinopril 2.5mg PO daily * history of 2 stents; 2 prior heart attacks; prior cath 2011 (stent of RCA; patient has report at bedside) * RUSSEL with ECG neg x3 * Note: cardiac hx (2 AR, CAD with stents, possible paroxysmal atrial fibrillation) 7) Diarrhea * C Diff negative 8) Prophylactic Measure * Thrombocytopenia noted on review of EMR and pancytopenia prior DC summary; no bleeding episodes noted * PT/OT eval * monitor on Telemetry <Gayatri Cullen V - Last Filed: 11/25/16 17:35> Objective - Vital Signs/Intake and Output Vital Signs (last 24 hours): Temp Pulse Resp BP Pulse Ox 98 F 74 20 113/69 100 11/25/16 15:00 11/25/16 15:00 11/25/16 15:00 11/25/16 15:00 11/25/16 15:00 Intake and Output: 11/25/16 11/25/16 06:59 18:59 Intake Total 100 Output Total 700 Balance -700 100 - Medications Medications: Current Medications Aspirin (Aspirin Chewable) 81 mg PO DAILY [facility] Last Admin: 11/25/16 09:48 Dose: 81 mg Clopidogrel Bisulfate (Plavix) 75 mg PO DAILY [facility] Last Admin: 11/25/16 09:49 Dose: 75 mg Enoxaparin Sodium (Lovenox) 60 mg SC Q12 [facility] Last Admin: 11/25/16 09:48 Dose: 60 mg Sodium Chloride (Sodium Chloride 0.9%) 1,000 mls @ 100 mls/hr IV .Q10H [facility] Last Admin: 11/25/16 08:15 Dose: 100 mls/hr Lisinopril (Zestril) 2.5 mg PO DAILY [facility] Last Admin: 11/25/16 09:49 Dose: 2.5 mg Metoprolol Tartrate (Lopressor) 12.5 mg PO 0800,1800 [facility] Last Admin: 11/25/16 09:49 Dose: 12.5 mg Rosuvastatin Calcium (Crestor) 20 mg PO HS [facility] Last Admin: 11/24/16 21:43 Dose: 20 mg Warfarin Sodium (Coumadin) 7.5 mg PO 1800 [facility] Stop: 11/25/16 18:01 - Labs Labs: 11/25/16 07:09 11/25/16 07:09 PT 13.2 SECONDS (9.7-12.2) H 11/25/16 07:09 INR 1.2 11/25/16 07:09 APTT 30 SECONDS (21-34) 11/20/16 13:49 Attending/Attestation - Attestation I have personally seen and examined this patient.: Yes I have fully participated in the care of the patient.: Yes I have reviewed all pertinent clinical information, including history, physical exam and plan: Yes Notes (Text): This is late computer entry for 11/24/16. Patient seen, examined and case discussed with day-time resident during afternoon rounds. Patient denies acute complaints at the time of my exam. Patient's left lower extremity weakness has improved. Discussed with case management, patient does not have insurance for acute rehab. Disposition pending therapuetic INR prior to discharge Currently on bridge from lovenox to Coumadin. INR: 1.2 Coumadin 7.5mg ordered for today Patient is pancytopenic. Patient denies prior workup for pancytopenia. HIV is negative. Hepatitis panel is negative and UDS is negative. Abdominal US (11/23): spleen measures 8.5 cm in craniocaudal span. liver has a normal appearance. Simple cyst in the upper pole right kidney. Complex cyst noted in the upper pole of left kidney. Heme-onc recommends for outpatient bone marrow evaluation. Assessment/Plan 1) Subacute on Chronic CVA * Neuro consult (Gideon) - recs appreciated * Cardiology consult (Dr. Steiner)--recs appreciated * Echo with bubble study r/o PFO-->patient does not have PFO. * LV is severely dilated. Normal left ventricular wall thickness. EF: 35-50%. Akinesia of inferolateral wall at mid cavitory level. CAD. No shunt seen. Mitral regurgitation is trace. Mild tricupsid regugitation * CT Head (11/22/16)->no hemorrhagic conversion; no intracranial mass. No acute hemorrhage. Subacute old infarcts medial right cerebllar, medial left frontal and high right frontal unchanged 11/20/16 * Patient to be bridged to Coumadin in light of cardiomyopathy with residual apical thrombus; patient is high risk for recurrent stroke discussed with both cardiology and neurology. Discussed with patient at bedside during rounds, who is awar on 11/21/16 * MRI brain w/o contrast: Chronic infarctions of the medial left frontal lobe and the basilar portion of the right cerebellum are identified with trace possible restricted diffusion in foci in the periphery of the left frontal infarct. Trace hemosiderin is also seen related to the left frontal infarct without gross intracranial hemorrhage evident. Gyriform enhancement seen related to the medial left frontal infarct. For chronic lacune infarction seen the right parietal lobe as well. Age related neuro degenerative changes are appreciated. * MRA head/neck w/o contrast: mild asymmetry and left v right perisylvian MCA branches (may be normal variation); no significant stenosis of cervical segments of common and internal carotid arteries b/l * ASA 325 mg PO daily-->81mg PO daily * Plavix 75 mg PO daily * Crestor 20 mg PO HS * Metoprolol 12.5 mg BID hold SBP<100 and HR<60 * PT/OT eval * NS 100 cc/hr * Coumadin 7.5mg PO tonight; on Lovenox bridge 2) Impaired glucose tolerance * A1c: 6.0; prior a1c in prior hospital paperwork is 5.5 * repeat in 1 year to prevent overt diabetes 3) Hypertension * Metoprolol 12.5mg PO BID (hold SBP<100 and HR<60 * Lisinopril 2.5 mg PO QD (hold SBP<100) * NS 100 cc/hr 4) Pancytopenia * Heme-onc consult: Dr Ana Chiang * History of pancytopenia per hospital discharge summary * WBC, and platelets low * HIV, Hep panel, UDS which are negative * HIT antibodies negative * Abdominal US (11/23): spleen measures 8.5 cm in craniocaudal span. liver has a normal appearance. Simple cyst in the upper pole right kidney. Complex cyst noted in the upper pole of left kidney. Heme-onc recommends for outpatient bone marrow evaluation. 5) History of Chronic Kidney Disease * History of CKD per hospital discharge summary * monitor BUN/Cr * GFR >60 6) Hx CAD * Cardiology consult ([facility]) - recs appreciated * ASA 81mg PO daily, plavix 75mg PO daily, crestor 20mg POqHS * Metoprolol 12.5mg PO bid * Lisinopril 2.5mg PO daily * history of 2 stents; 2 prior heart attacks; prior cath 2011 (stent of RCA; patient has report at bedside) * RUSSEL X3 negative * Note: cardiac hx (2 AR, CAD with stents) 7) Prophylactic Measure * Thrombocytopenia noted on review of EMR and pancytopenia prior DC summary; no bleeding episodes noted-->patient is high risk for recurrent stroke secondary to cardimyopathy-->discussed with neurology and cardiology. Patient started on therapuetic Lovenox to bridge to Coumadin. NOAC not appropriate for patient discussed with both neurology and cardiology. * PT/OT eval-->recommend acute rehab; will need to follow-up with case management; d * monitor on Telemetry Disposition: Patient being bridge from Lovenox to Coumadin in order to further prevent future strokes. Patient does not have insurance. Will need outpatient physical.
--- NOTE | 2016-11-24 20:41 | PN ---
DATE: SUBJECTIVE: The patient denies any headache or dizziness. He is able to stand up on his own. PHYSICAL EXAMINATION VITAL SIGNS: Blood pressure 102/62, heart rate 68, temperature 97.4, respirations 18. HEENT: Normocephalic. CHEST: Clear. HEART: S1 and S2 regular. EXTREMITIES: No edema. LABORATORY DATA: Hemoglobin and hematocrit 12.3 and 35.8, white count 2.5, platelet count is 79,000 exactly seen as yesterday. Today's SMA-7 is within normal limit. Today's magnesium is 1.5. Today's INR is 1.2. ASSESSMENT: 1. Ischemic cardiomyopathy. 2. Recurrent embolic cerebrovascular accident. 3. Left ventricular smoke as well as residual apical thrombus. 4. Thrombocytopenia and leukopenia. CONDITIONS: Continue aspirin 81 mg once a day, Coumadin 7.5 mg will be as necessary, continue Lopressor 12.5 mg once a day, Lovenox 60 mg twice a day, Zestril 2.5 mg once a day and intravenous magnesium sulphate 1 g was administered today. Rusty Steiner MD
[2016-11-25] MEDS: Sodium Chloride 0.9% 1,000 ML IV SCH ×3 (01:41→19:00)
[2016-11-25 07:06] LABS: PHOSPHATIDYLSERINE AB IGA <20 U/mL (<20); PHOSPHATIDYLSERINE AB IGM <25 U/mL (<25)
[2016-11-25 07:24] LABS: TOTAL PROTEIN, SERUM 5.6 g/dL (6.1-8.1)
[2016-11-25 07:26] LABS: INR 1.2
[2016-11-25 07:28] LABS: BASO % 0.4 % (0.0-2.0); EOS % 1.2 % (0.0-4.0); HEMATOCRIT 36.1 % (35.0-51.0); LYMPH # 1.4 K/uL (1.0-4.3); LYMPH % 58.4 % (20.0-40.0); MEAN CELL VOLUME 97.5 fL (80.0-94.0); MEAN CORPUSCULAR HEMOGLOBIN 33.2 pg (27.0-31.0); MEAN CORPUSCULAR HGB CONC 34.1 g/dL (33.0-37.0); MEAN PLATELET VOLUME 9.8 fL (7.2-11.7); MONO # 0.3 K/uL (0.0-0.8); MONO % 13.1 % (0.0-10.0); NRBC % 0.2 % (0.0-2.0); WHITE BLOOD COUNT 2.4 K/uL (4.8-10.8)
[2016-11-25 07:35] LABS: CHLORIDE 106 mmol/L (98-107); POTASSIUM 4.2 mmol/L (3.6-5.2); SODIUM 141 mmol/L (132-148)
[2016-11-25 07:37] LABS: ALB/GLOB RATIO 1.1 (1.0-2.1); AST/SGOT 26 U/L (17-59); BILIRUBIN,TOTAL 0.3 mg/dL (0.2-1.3); CARBON DIOXIDE 27 mmol/L (22-30); GFR AFRICAN-AMERICAN > 60
[2016-11-25 07:38] LABS: ALKALINE PHOSPHATASE 65 U/L (38-126); ALT/SGPT 37 U/L (21-72); BLOOD UREA NITROGEN 12 mg/dL (9-20); CALCIUM 8.4 mg/dl (8.6-10.4); GLUCOSE,RANDOM 78 mg/dL (75-110); MAGNESIUM 1.6 mg/dL (1.6-2.3)
[2016-11-25] MEDS: Enoxaparin 60 mg Syringe SC SCH ×2 (09:48→21:47)
--- NOTE | 2016-11-25 15:21 | CP.PCM.PN ---
<Norman Pretty - Last Filed: 11/25/16 15:21> Subjective - Date & Time of Evaluation Date of Evaluation: 11/25/16 Time of Evaluation: 15:20 - Subjective Subjective: Progress note. Attending: Dr. Cullen Pt seen and examined at bedside. No acute distress. No events overnight. Pt feeling stronger. Will follow INR, warfarin 7.5 to be given today. No fevers, chills, vomiting, diarrhea. Objective - Vital Signs/Intake and Output Vital Signs (last 24 hours): Temp Pulse Resp BP Pulse Ox 98.0 F 59 L 20 116/62 100 11/25/16 07:05 11/25/16 07:30 11/25/16 07:05 11/25/16 07:05 11/25/16 07:05 Intake and Output: 11/25/16 11/25/16 06:59 18:59 Intake Total 100 Output Total 700 Balance -700 100 - Medications Medications: Current Medications Aspirin (Aspirin Chewable) 81 mg PO DAILY [facility] Last Admin: 11/25/16 09:48 Dose: 81 mg Clopidogrel Bisulfate (Plavix) 75 mg PO DAILY [facility] Last Admin: 11/25/16 09:49 Dose: 75 mg Enoxaparin Sodium (Lovenox) 60 mg SC Q12 [facility] Last Admin: 11/25/16 09:48 Dose: 60 mg Sodium Chloride (Sodium Chloride 0.9%) 1,000 mls @ 100 mls/hr IV .Q10H [facility] Last Admin: 11/25/16 08:15 Dose: 100 mls/hr Lisinopril (Zestril) 2.5 mg PO DAILY [facility] Last Admin: 11/25/16 09:49 Dose: 2.5 mg Metoprolol Tartrate (Lopressor) 12.5 mg PO 0800,1800 [facility] Last Admin: 11/25/16 09:49 Dose: 12.5 mg Rosuvastatin Calcium (Crestor) 20 mg PO HS [facility] Last Admin: 11/24/16 21:43 Dose: 20 mg Warfarin Sodium (Coumadin) 7.5 mg PO 1800 [facility] Stop: 11/25/16 18:01 - Labs Labs: 11/25/16 07:09 11/25/16 07:09 PT 13.2 SECONDS (9.7-12.2) H 11/25/16 07:09 INR 1.2 11/25/16 07:09 APTT 30 SECONDS (21-34) 11/20/16 13:49 - Constitutional Appears: Non-toxic, No Acute Distress - Head Exam Head Exam: ATRAUMATIC, NORMAL INSPECTION, NORMOCEPHALIC - Eye Exam Eye Exam: EOMI - ENT Exam ENT Exam: Mucous Membranes Moist - Respiratory Exam Respiratory Exam: NORMAL BREATHING PATTERN. absent: Respiratory Distress - Cardiovascular Exam Cardiovascular Exam: +S1, +S2 - GI/Abdominal Exam GI & Abdominal Exam: Soft, Normal Bowel Sounds. absent: Tenderness - Extremities Exam Extremities Exam: Full ROM, Normal Inspection - Neurological Exam Neurological Exam: Alert, Awake, CN II-XII Intact, Oriented x3 Neuro motor strength exam: Left Upper Extremity: 5, Right Upper Extremity: 5, Left Lower Extremity: 5 - Psychiatric Exam Psychiatric exam: Normal Affect, Normal Mood - Skin Skin Exam: Dry, Intact, Normal Color, Warm Assessment and Plan - Assessment and Plan (Free Text) Assessment: Assessment: 1) Acute CVA * Neuro consult (Gideon) - 11/21 This is a subacute to chronic stroke, but the patient has some new symptoms. Will start IV heparin or Lovenox and bridge to coumadin to maintain an INR of 2-3. A repeat CT head can be done in 12-16 hours to evaluate for any hemorrhagic conversion. The patient may be transferred to acute rehab if stable and INR is therapeutic. * TSH 1.11, Free T4 1.18, B12 442, CRP 0.60 * ESR: 5 * 11/22 CT head: no mass or hemorrhage seen * MRI brain w/o contrast: Chronic infarctions of the medial left frontal lobe and the basilar portion of the right cerebellum are identified with trace possible restricted diffusion in foci in the periphery of the left frontal infarct. Trace hemosiderin is also seen related to the left frontal infarct without gross intracranial hemorrhage evident. Gyriform enhancement seen related to the medial left frontal infarct. For chronic lacune infarction seen the right parietal lobe as well. Age related neuro degenerative changes are appreciated. * MRA head/neck w/o contrast: mild asymmetry and left v right perisylvian MCA branches (may be normal variation); no significant stenosis of cervical segments of common and internal carotid arteries b/l * Protein C & S 77&102, antithrombin III 97, HIT negative, anticardiolipin Ab negative, heparin induced platelet AB negative * F/U factor V leiden, antiphospholipid, * Echo with bubble study: cardiomyopathy 2/2 Hx [place] without PFO * Therapeutic lovenox (60 mg Q12) * Coumadin 5 mg increased to 7.5 mg (11/24) * Arterial duplex of LEs negative for disease * ASA 325 mg PO daily * Plavix 75 mg PO daily * Crestor 20 mg PO HS * Metoprolol 12.5 mg BID hold SBP<100 and HR<60 * PT/OT eval * NS 100 cc/hr 2) Impaired glucose tolerance * A1c: 6.0; prior a1c in prior hospital paperwork is 5.5 * repeat in 1 year to prevent overt diabetes 3) Hypertension * Metoprolol 12.5mg PO BID (hold SBP<100 and HR<60 * Lisinopril 2.5 mg PO QD (hold SBP<100 * NS 100 cc/hr 4) Pancytopenia * History of pancytopenia per hospital discharge summary * WBC, and platelets low * HIV, Hep panel negative * F/U UDS * F/U Heme/Onc consult (Dr. Chiang) * Abdominal US showed no splenomegaly or hepatomegaly 5) History of Chronic Kidney Disease * History of CKD per hospital discharge summary * monitor BUN/Cr * GFR >60 6) Hx CAD * Cardiology consult (Oneyda) - recs appreciated * ASA 81mg PO daily, plavix 75mg PO daily, crestor 20mg POqHS * Metoprolol 12.5mg PO bid * Lisinopril 2.5mg PO daily * history of 2 stents; 2 prior heart attacks; prior cath 2011 (stent of RCA; patient has report at bedside) * RUSSEL with ECG neg x3 * Note: cardiac hx (2 [place], CAD with stents, possible paroxysmal atrial fibrillation) 7) Diarrhea * C Diff negative 8) Prophylactic Measure * Thrombocytopenia noted on review of EMR and pancytopenia prior DC summary; no bleeding episodes noted * PT/OT eval * monitor on Telemetry * * * discussed with Dr. Cullen. <Gayatri Cullen V - Last Filed: 11/25/16 17:38> Objective - Vital Signs/Intake and Output Vital Signs (last 24 hours): Temp Pulse Resp BP Pulse Ox 98 F 74 20 113/69 100 11/25/16 15:00 11/25/16 15:00 11/25/16 15:00 11/25/16 15:00 11/25/16 15:00 Intake and Output: 11/25/16 11/25/16 06:59 18:59 Intake Total 100 Output Total 700 Balance -700 100 - Medications Medications: Current Medications Aspirin (Aspirin Chewable) 81 mg PO DAILY [facility] Last Admin: 11/25/16 09:48 Dose: 81 mg Clopidogrel Bisulfate (Plavix) 75 mg PO DAILY [facility] Last Admin: 11/25/16 09:49 Dose: 75 mg Enoxaparin Sodium (Lovenox) 60 mg SC Q12 [facility] Last Admin: 11/25/16 09:48 Dose: 60 mg Sodium Chloride (Sodium Chloride 0.9%) 1,000 mls @ 100 mls/hr IV .Q10H [facility] Last Admin: 11/25/16 08:15 Dose: 100 mls/hr Lisinopril (Zestril) 2.5 mg PO DAILY [facility] Last Admin: 11/25/16 09:49 Dose: 2.5 mg Metoprolol Tartrate (Lopressor) 12.5 mg PO 0800,1800 [facility] Last Admin: 11/25/16 09:49 Dose: 12.5 mg Rosuvastatin Calcium (Crestor) 20 mg PO HS [facility] Last Admin: 11/24/16 21:43 Dose: 20 mg Warfarin Sodium (Coumadin) 7.5 mg PO 1800 [facility] Stop: 11/25/16 18:01 - Labs Labs: 11/25/16 07:09 11/25/16 07:09 PT 13.2 SECONDS (9.7-12.2) H 11/25/16 07:09 INR 1.2 11/25/16 07:09 APTT 30 SECONDS (21-34) 11/20/16 13:49 Attending/Attestation - Attestation I have personally seen and examined this patient.: Yes I have fully participated in the care of the patient.: Yes I have reviewed all pertinent clinical information, including history, physical exam and plan: Yes Notes (Text): Patient seen, examined and case discussed with day-time resident. Patient denies acute complaints at the time of my exam. Discussed with case management, patient does not have insurance for acute rehab. Disposition pending therapuetic INR prior to discharge. Currently on bridge from lovenox to Coumadin. INR: 1.2; Coumadin 7.5mg ordered for today; Advised patient at bedside to avoid foods rich in vitamin K, will cause the coumadin to be less effective. Assessment/Plan 1) Subacute on Chronic CVA * Neuro consult (Gideon) - recs appreciated * Cardiology consult (Dr. Steiner)--recs appreciated * Echo with bubble study r/o PFO-->patient does not have PFO. * LV is severely dilated. Normal left ventricular wall thickness. EF: 35-50%. Akinesia of inferolateral wall at mid cavitory level. CAD. No shunt seen. Mitral regurgitation is trace. Mild tricupsid regugitation * CT Head (11/22/16)->no hemorrhagic conversion; no intracranial mass. No acute hemorrhage. Subacute old infarcts medial right cerebllar, medial left frontal and high right frontal unchanged 11/20/16 * Patient to be bridged to Coumadin in light of cardiomyopathy with residual apical thrombus; patient is high risk for recurrent stroke discussed with both cardiology and neurology. Discussed with patient at bedside during rounds, who is awar on 11/21/16 * MRI brain w/o contrast: Chronic infarctions of the medial left frontal lobe and the basilar portion of the right cerebellum are identified with trace possible restricted diffusion in foci in the periphery of the left frontal infarct. Trace hemosiderin is also seen related to the left frontal infarct without gross intracranial hemorrhage evident. Gyriform enhancement seen related to the medial left frontal infarct. For chronic lacune infarction seen the right parietal lobe as well. Age related neuro degenerative changes are appreciated. * MRA head/neck w/o contrast: mild asymmetry and left v right perisylvian MCA branches (may be normal variation); no significant stenosis of cervical segments of common and internal carotid arteries b/l * ASA 325 mg PO daily-->81mg PO daily * Plavix 75 mg PO daily * Crestor 20 mg PO HS * Metoprolol 12.5 mg BID hold SBP<100 and HR<60 * PT/OT eval * NS 100 cc/hr * Coumadin 7.5mg PO tonight; on Lovenox bridge 2) Impaired glucose tolerance * A1c: 6.0; prior a1c in prior hospital paperwork is 5.5 * repeat in 1 year to prevent overt diabetes 3) Hypertension * Metoprolol 12.5mg PO BID (hold SBP<100 and HR<60 * Lisinopril 2.5 mg PO QD (hold SBP<100) * NS 100 cc/hr 4) Pancytopenia * Heme-onc consult: Dr Ana Chiang * History of pancytopenia per hospital discharge summary * WBC, and platelets low * HIV, Hep panel, UDS which are negative * HIT antibodies negative * Abdominal US (11/23): spleen measures 8.5 cm in craniocaudal span. liver has a normal appearance. Simple cyst in the upper pole right kidney. Complex cyst noted in the upper pole of left kidney. Heme-onc recommends for outpatient bone marrow evaluation. * Recommend for outpatient bone marrow evaluation 5) History of Chronic Kidney Disease * History of CKD per hospital discharge summary * monitor BUN/Cr * GFR >60 6) Hx CAD * Cardiology consult ([facility]) - recs appreciated * ASA 81mg PO daily, plavix 75mg PO daily, crestor 20mg POqHS * Metoprolol 12.5mg PO bid * Lisinopril 2.5mg PO daily * history of 2 stents; 2 prior heart attacks; prior cath 2011 (stent of RCA; patient has report at bedside) * RUSSEL X3 negative * Note: cardiac hx (2 [place], CAD with stents) 7) Prophylactic Measure * Thrombocytopenia noted on review of EMR and pancytopenia prior DC summary; no bleeding episodes noted-->patient is high risk for recurrent stroke secondary to cardimyopathy-->discussed with neurology and cardiology. Patient started on therapuetic Lovenox to bridge to Coumadin. NOAC not appropriate for patient discussed with both neurology and cardiology. * PT/OT eval-->recommend acute rehab; will need to follow-up with case management; d * monitor on Telemetry Disposition: Patient being bridge from Lovenox to Coumadin in order to further prevent future strokes. Patient does not have insurance. Will need outpatient physical and occupational script upon discharge.
--- NOTE | 2016-11-25 21:26 | CP.PCM.PN ---
Subjective - Date & Time of Evaluation Date of Evaluation: 11/25/16 Time of Evaluation: 21:00 - Subjective Subjective: Patient was seen and examined at bedside in the evening. Patient stated that his vision was feeling a bit hazy and that had never occurred before. Patient stated his vision was mostly hazy on the left side. CT of the head w/o contrast was ordered patient refused to go stating he did not think it was a big deal. Objective - Vital Signs/Intake and Output Vital Signs (last 24 hours): Temp Pulse Resp BP Pulse Ox 98 F 74 20 113/69 100 11/25/16 15:00 11/25/16 15:00 11/25/16 15:00 11/25/16 15:00 11/25/16 15:00 Intake and Output: 11/25/16 11/26/16 18:59 06:59 Intake Total 100 Balance 100 - Medications Medications: Current Medications Aspirin (Aspirin Chewable) 81 mg PO DAILY [facility] Last Admin: 11/25/16 09:48 Dose: 81 mg Clopidogrel Bisulfate (Plavix) 75 mg PO DAILY [facility] Last Admin: 11/25/16 09:49 Dose: 75 mg Enoxaparin Sodium (Lovenox) 60 mg SC Q12 [facility] Last Admin: 11/25/16 09:48 Dose: 60 mg Sodium Chloride (Sodium Chloride 0.9%) 1,000 mls @ 100 mls/hr IV .Q10H [facility] Last Admin: 11/25/16 19:00 Dose: 100 mls/hr Lisinopril (Zestril) 2.5 mg PO DAILY [facility] Last Admin: 11/25/16 09:49 Dose: 2.5 mg Metoprolol Tartrate (Lopressor) 12.5 mg PO 0800,1800 [facility] Last Admin: 11/25/16 09:49 Dose: 12.5 mg Rosuvastatin Calcium (Crestor) 20 mg PO HS [facility] Last Admin: 11/24/16 21:43 Dose: 20 mg - Labs Labs: 11/25/16 07:09 11/25/16 07:09 PT 13.2 SECONDS (9.7-12.2) H 11/25/16 07:09 INR 1.2 11/25/16 07:09 APTT 30 SECONDS (21-34) 11/20/16 13:49 - Constitutional Appears: No Acute Distress - Eye Exam Eye Exam: EOMI, Normal appearance, PERRL Pupil Exam: NORMAL ACCOMODATION - ENT Exam ENT Exam: Mucous Membranes Moist - Respiratory Exam Respiratory Exam: Clear to Ausculation Bilateral, NORMAL BREATHING PATTERN - Cardiovascular Exam Cardiovascular Exam: REGULAR RHYTHM, RRR, +S1, +S2 - Neurological Exam Neurological Exam: Alert, Awake, CN II-XII Intact, Oriented x3 Neuro motor strength exam: Left Upper Extremity: 5, Right Upper Extremity: 5, Left Lower Extremity: 5, Right Lower Extremity: 5
[2016-11-26] MEDS: Sodium Chloride 0.9% 1,000 ML IV SCH ×3 (03:15→21:23)
[2016-11-26 08:00] LABS: INR 1.6
[2016-11-26 08:01] LABS: BASO % 0.4 % (0.0-2.0); EOS % 1.2 % (0.0-4.0); HEMATOCRIT 36.1 % (35.0-51.0); LYMPH # 1.5 K/uL (1.0-4.3); MEAN CELL VOLUME 95.9 fL (80.0-94.0); MEAN CORPUSCULAR HEMOGLOBIN 33.4 pg (27.0-31.0); MEAN CORPUSCULAR HGB CONC 34.8 g/dL (33.0-37.0); MEAN PLATELET VOLUME 9.4 fL (7.2-11.7); MONO # 0.3 K/uL (0.0-0.8); MONO % 11.4 % (0.0-10.0); NRBC % 0.3 % (0.0-2.0); RED CELL DISTRIBUTION WIDTH 13.2 % (11.5-14.5); WHITE BLOOD COUNT 2.4 K/uL (4.8-10.8)
[2016-11-26 08:13] LABS: CHLORIDE 105 mmol/L (98-107); SODIUM 139 mmol/L (132-148)
[2016-11-26 08:14] LABS: POTASSIUM 4.2 mmol/L (3.6-5.2)
[2016-11-26 08:15] LABS: GFR AFRICAN-AMERICAN > 60
[2016-11-26 08:16] LABS: ALB/GLOB RATIO 1.1 (1.0-2.1); ALKALINE PHOSPHATASE 51 U/L (38-126); ALT/SGPT 49 U/L (21-72); AST/SGOT 34 U/L (17-59); BILIRUBIN,TOTAL 0.4 mg/dL (0.2-1.3); BLOOD UREA NITROGEN 12 mg/dL (9-20); CARBON DIOXIDE 28 mmol/L (22-30); GLUCOSE,RANDOM 80 mg/dL (75-110); PHOSPHOROUS 3.8 mg/dL (2.5-4.5)
[2016-11-26 08:17] LABS: CALCIUM 8.7 mg/dl (8.6-10.4); MAGNESIUM 1.5 mg/dL (1.6-2.3)
[2016-11-26] MEDS ORDERED: Magnesium Sulfate 1 gm in D5W 1 GM/100 ML BAG IVPB ONE (09:00)
[2016-11-26] MEDS: Enoxaparin 60 mg Syringe SC SCH ×2 (09:05→21:22)
--- NOTE | 2016-11-26 16:52 | CP.PCM.PN ---
<Norman Pretty - Last Filed: 11/26/16 16:48> Subjective - Date & Time of Evaluation Date of Evaluation: 11/26/16 Time of Evaluation: 16:50 - Subjective Subjective: Progress note. Dr. Cullen Pt seen and examined at bedside. No acute distress. Pt had hazy vision overnight , but refused ct scan. It is now resolved. Denies fevers, chills, vomiting, diarrhea, cp, sob. Objective - Vital Signs/Intake and Output Vital Signs (last 24 hours): Temp Pulse Resp BP Pulse Ox 98.3 F 68 20 104/56 L 98 11/26/16 15:00 11/26/16 15:00 11/26/16 15:00 11/26/16 15:00 11/26/16 15:00 Intake and Output: 11/26/16 11/26/16 06:59 18:59 Intake Total 1280 800 Output Total 1800 600 Balance -520 200 - Medications Medications: Current Medications Aspirin (Aspirin Chewable) 81 mg PO DAILY [facility] Last Admin: 11/26/16 09:04 Dose: 81 mg Clopidogrel Bisulfate (Plavix) 75 mg PO DAILY [facility] Last Admin: 11/26/16 09:04 Dose: 75 mg Enoxaparin Sodium (Lovenox) 60 mg SC Q12 [facility] Last Admin: 11/26/16 09:05 Dose: 60 mg Lisinopril (Zestril) 2.5 mg PO DAILY [facility] Last Admin: 11/26/16 09:04 Dose: 2.5 mg Metoprolol Tartrate (Lopressor) 12.5 mg PO 0800,1800 [facility] Last Admin: 11/26/16 09:04 Dose: 12.5 mg Rosuvastatin Calcium (Crestor) 20 mg PO HS [facility] Last Admin: 11/25/16 21:46 Dose: 20 mg Warfarin Sodium (Coumadin) 7.5 mg PO 1800 [facility] Stop: 11/26/16 18:01 - Labs Labs: 11/26/16 07:45 11/26/16 07:45 PT 18.1 SECONDS (9.7-12.2) H 11/26/16 07:45 INR 1.6 11/26/16 07:45 APTT 30 SECONDS (21-34) 11/20/16 13:49 - Constitutional Appears: Non-toxic, No Acute Distress - Head Exam Head Exam: ATRAUMATIC, NORMAL INSPECTION, NORMOCEPHALIC - Eye Exam Eye Exam: EOMI - ENT Exam ENT Exam: Mucous Membranes Moist - Neck Exam Neck Exam: Full ROM, Normal Inspection - Respiratory Exam Respiratory Exam: NORMAL BREATHING PATTERN. absent: Respiratory Distress - Cardiovascular Exam Cardiovascular Exam: +S1, +S2 - GI/Abdominal Exam GI & Abdominal Exam: Soft, Normal Bowel Sounds. absent: Tenderness - Extremities Exam Extremities Exam: Full ROM, Normal Inspection - Neurological Exam Neurological Exam: Alert, Awake, Oriented x3 - Psychiatric Exam Psychiatric exam: Normal Affect, Normal Mood - Skin Skin Exam: Dry, Intact, Normal Color, Warm Assessment and Plan - Assessment and Plan (Free Text) Assessment: This is a 61 yo male with past medical hx of CVA, HTN, IGT, CKD, CAD presenting with 1. CVA -likely chronic in nature -continue asa daily -continue plavix dailly -neuro consult. recs appreciated -continue NS 2. hx of IGT -continue to monitor -continue crestor 3. hx of HTN -continue lisinopril 2.5 daily -continue lopressor 12.5 bid 4. hx of pancytopenia -hiv panel negative -hep panel negative 5. hx of CKD -continue to monitor -UA negative 6. hx of CAD -pt also has residual apical thrombus -pt is on lovenox 60 q 12 7. hx of diarrhea -resolved -c diff negative 8. GI/DVT ppx -protonix -lovenox [address] Cullen. <Gayatri Cullen V - Last Filed: 11/26/16 22:34> Objective - Vital Signs/Intake and Output Vital Signs (last 24 hours): Temp Pulse Resp BP Pulse Ox 98 F 69 20 110/64 99 11/26/16 20:30 11/26/16 21:29 11/26/16 21:29 11/26/16 21:29 11/26/16 20:30 Intake and Output: 11/26/16 11/27/16 18:59 06:59 Intake Total 800 Output Total 600 Balance 200 - Medications Medications: Current Medications Aspirin (Aspirin Chewable) 81 mg PO DAILY [facility] Last Admin: 11/26/16 09:04 Dose: 81 mg Clopidogrel Bisulfate (Plavix) 75 mg PO DAILY [facility] Last Admin: 11/26/16 09:04 Dose: 75 mg Enoxaparin Sodium (Lovenox) 60 mg SC Q12 [facility] Last Admin: 11/26/16 21:22 Dose: 60 mg Sodium Chloride (Sodium Chloride 0.9%) 1,000 mls @ 100 mls/hr IV .Q10H [facility] Last Admin: 11/26/16 21:23 Dose: 100 mls/hr Lisinopril (Zestril) 2.5 mg PO DAILY [facility] Last Admin: 11/26/16 09:04 Dose: 2.5 mg Metoprolol Tartrate (Lopressor) 12.5 mg PO 0800,1800 [facility] Last Admin: 11/26/16 21:28 Dose: 12.5 mg Rosuvastatin Calcium (Crestor) 20 mg PO HS [facility] Last Admin: 11/26/16 21:22 Dose: 20 mg - Labs Labs: 11/26/16 07:45 11/26/16 07:45 PT 18.1 SECONDS (9.7-12.2) H 11/26/16 07:45 INR 1.6 11/26/16 07:45 APTT 30 SECONDS (21-34) 11/20/16 13:49 Attending/Attestation - Attestation I have personally seen and examined this patient.: Yes I have fully participated in the care of the patient.: Yes I have reviewed all pertinent clinical information, including history, physical exam and plan: Yes Notes (Text): Patient seen, examined and case discussed with day-time resident. Patient denies acute complaints at the time of my exam except for "hazy vision" which he reports has resolved and refuses the repeat CT Head. Discussed with case management, patient does not have insurance for acute rehab. Disposition pending therapuetic INR prior to discharge. Currently on bridge from lovenox to Coumadin. INR: 1.6; Coumadin 7.5mg ordered for today; Advised patient at bedside to avoid foods rich in vitamin K, will cause the coumadin to be less effective. Assessment/Plan 1) Subacute on Chronic CVA * Neuro consult (Gideon) - recs appreciated * Cardiology consult (Dr. Steiner)--recs appreciated * Echo with bubble study r/o PFO-->patient does not have PFO. * LV is severely dilated. Normal left ventricular wall thickness. EF: 35-50%. Akinesia of inferolateral wall at mid cavitory level. CAD. No shunt seen. Mitral regurgitation is trace. Mild tricupsid regugitation * CT Head (11/22/16)->no hemorrhagic conversion; no intracranial mass. No acute hemorrhage. Subacute old infarcts medial right cerebllar, medial left frontal and high right frontal unchanged 11/20/16 * Patient to be bridged to Coumadin in light of cardiomyopathy with residual apical thrombus; patient is high risk for recurrent stroke discussed with both cardiology and neurology. Discussed with patient at bedside during rounds, who is awar on 11/21/16 * MRI brain w/o contrast: Chronic infarctions of the medial left frontal lobe and the basilar portion of the right cerebellum are identified with trace possible restricted diffusion in foci in the periphery of the left frontal infarct. Trace hemosiderin is also seen related to the left frontal infarct without gross intracranial hemorrhage evident. Gyriform enhancement seen related to the medial left frontal infarct. For chronic lacune infarction seen the right parietal lobe as well. Age related neuro degenerative changes are appreciated. * MRA head/neck w/o contrast: mild asymmetry and left v right perisylvian MCA branches (may be normal variation); no significant stenosis of cervical segments of common and internal carotid arteries b/l * ASA 325 mg PO daily-->81mg PO daily * Plavix 75 mg PO daily * Crestor 20 mg PO HS * Metoprolol 12.5 mg BID hold SBP<100 and HR<60 * PT/OT eval * NS 100 cc/hr * Coumadin 7.5mg PO tonight; on Lovenox bridge 2) Impaired glucose tolerance * A1c: 6.0; prior a1c in prior hospital paperwork is 5.5 * repeat in 1 year to prevent overt diabetes 3) Hypertension * Metoprolol 12.5mg PO BID (hold SBP<100 and HR<60 * Lisinopril 2.5 mg PO QD (hold SBP<100) * NS 100 cc/hr 4) Pancytopenia * Heme-onc consult: Dr Ana Chiang * History of pancytopenia per hospital discharge summary * WBC, and platelets low * HIV, Hep panel, UDS which are negative * HIT antibodies negative * Abdominal US (11/23): spleen measures 8.5 cm in craniocaudal span. liver has a normal appearance. Simple cyst in the upper pole right kidney. Complex cyst noted in the upper pole of left kidney. Heme-onc recommends for outpatient bone marrow evaluation. * Recommend for outpatient bone marrow evaluation 5) History of Chronic Kidney Disease * History of CKD per hospital discharge summary * monitor BUN/Cr * GFR >60 6) Hx CAD * Cardiology consult (Jatin) - recs appreciated * ASA 81mg PO daily, plavix 75mg PO daily, crestor 20mg POqHS * Metoprolol 12.5mg PO bid * Lisinopril 2.5mg PO daily * history of 2 stents; 2 prior heart attacks; prior cath 2011 (stent of RCA; patient has report at bedside) * RUSSEL X3 negative * Note: cardiac hx (2 [place], CAD with stents) 7) Prophylactic Measure * Thrombocytopenia noted on review of EMR and pancytopenia prior DC summary; no bleeding episodes noted-->patient is high risk for recurrent stroke secondary to cardimyopathy-->discussed with neurology and cardiology. Patient started on therapuetic Lovenox to bridge to Coumadin. NOAC not appropriate for patient discussed with both neurology and cardiology. * PT/OT eval-->recommend acute rehab; will need to follow-up with case management; d * monitor on Telemetry Disposition: Patient being bridge from Lovenox to Coumadin in order to further prevent future strokes. Patient does not have insurance. Will need outpatient physical and occupational script upon discharge.
--- NOTE | 2016-11-27 01:17 | CP.PCM.PN ---
Subjective - Date & Time of Evaluation Date of Evaluation: 11/24/16 Time of Evaluation: 12:00 - Subjective Subjective: No complaints. Objective - Vital Signs/Intake and Output Vital Signs (last 24 hours): Temp Pulse Resp BP Pulse Ox 98 F 76 20 110/64 99 11/26/16 20:30 11/26/16 23:15 11/26/16 21:29 11/26/16 21:29 11/26/16 20:30 Intake and Output: 11/26/16 11/27/16 18:59 06:59 Intake Total 800 560 Output Total 600 750 Balance 200 -190 - Medications Medications: Current Medications Aspirin (Aspirin Chewable) 81 mg PO DAILY [facility] Last Admin: 11/26/16 09:04 Dose: 81 mg Clopidogrel Bisulfate (Plavix) 75 mg PO DAILY [facility] Last Admin: 11/26/16 09:04 Dose: 75 mg Enoxaparin Sodium (Lovenox) 60 mg SC Q12 [facility] Last Admin: 11/26/16 21:22 Dose: 60 mg Sodium Chloride (Sodium Chloride 0.9%) 1,000 mls @ 100 mls/hr IV .Q10H [facility] Last Admin: 11/26/16 21:23 Dose: 100 mls/hr Lisinopril (Zestril) 2.5 mg PO DAILY [facility] Last Admin: 11/26/16 09:04 Dose: 2.5 mg Metoprolol Tartrate (Lopressor) 12.5 mg PO 0800,1800 [facility] Last Admin: 11/26/16 21:28 Dose: 12.5 mg Rosuvastatin Calcium (Crestor) 20 mg PO HS [facility] Last Admin: 11/26/16 21:22 Dose: 20 mg - Labs Labs: 11/26/16 07:45 11/26/16 07:45 PT 18.1 SECONDS (9.7-12.2) H 11/26/16 07:45 INR 1.6 11/26/16 07:45 APTT 30 SECONDS (21-34) 11/20/16 13:49 - Head Exam Head Exam: ATRAUMATIC - Eye Exam Eye Exam: Normal appearance - ENT Exam ENT Exam: Mucous Membranes Dry - Respiratory Exam Respiratory Exam: NORMAL BREATHING PATTERN - Cardiovascular Exam Cardiovascular Exam: +S1, +S2 - GI/Abdominal Exam GI & Abdominal Exam: Normal Bowel Sounds - Extremities Exam Extremities Exam: Normal Inspection Assessment and Plan (1) Pancytopenia Assessment & Plan: normal iron, b12, folate stores f/u monolconal protein w/u HIV and hepatitis negative outpatient f/u of counts Status: Acute
[2016-11-27 06:22] LABS: BASO % 0.4 % (0.0-2.0); EOS % 1.1 % (0.0-4.0); LYMPH # 1.9 K/uL (1.0-4.3); LYMPH % 62.9 % (20.0-40.0); MEAN CELL VOLUME 97.2 fL (80.0-94.0); MEAN CORPUSCULAR HEMOGLOBIN 33.4 pg (27.0-31.0); MEAN CORPUSCULAR HGB CONC 34.3 g/dL (33.0-37.0); MONO # 0.4 K/uL (0.0-0.8); MONO % 11.8 % (0.0-10.0); NRBC % 0.1 % (0.0-2.0); RED CELL DISTRIBUTION WIDTH 13.2 % (11.5-14.5)
[2016-11-27 06:34] LABS: INR 1.7
[2016-11-27 06:43] LABS: ALB/GLOB RATIO 1.1 (1.0-2.1); ALKALINE PHOSPHATASE 52 U/L (38-126); ALT/SGPT 46 U/L (21-72); AST/SGOT 31 U/L (17-59); BILIRUBIN,TOTAL 0.2 mg/dL (0.2-1.3); BLOOD UREA NITROGEN 15 mg/dL (9-20); CALCIUM 8.9 mg/dl (8.6-10.4); CARBON DIOXIDE 28 mmol/L (22-30); CHLORIDE 102 mmol/L (98-107); GFR AFRICAN-AMERICAN > 60; GLUCOSE,RANDOM 77 mg/dL (75-110); MAGNESIUM 1.6 mg/dL (1.6-2.3); POTASSIUM 4.4 mmol/L (3.6-5.2); SODIUM 141 mmol/L (132-148)
[2016-11-27] MEDS: Sodium Chloride 0.9% 1,000 ML IV SCH ×2 (08:00→18:18)
[2016-11-27] MEDS: Enoxaparin 60 mg Syringe SC SCH ×2 (09:13→22:02)
--- NOTE | 2016-11-27 10:40 | CP.PCM.PN ---
Subjective - Date & Time of Evaluation Date of Evaluation: 11/27/16 Time of Evaluation: 10:37 - Subjective Subjective: Mr. Mayes was seen and examined at bedside. He was found in NAD. There were no acute events overnight. He said he was feeling better today. He denies ant weakness, dizziness, lightheadedness, nausea, or headache. Objective - Vital Signs/Intake and Output Vital Signs (last 24 hours): Temp Pulse Resp BP Pulse Ox 98.0 F 70 18 118/60 99 11/27/16 07:05 11/27/16 07:30 11/27/16 07:05 11/27/16 07:05 11/27/16 07:05 Intake and Output: 11/27/16 11/27/16 06:59 18:59 Intake Total 1360 Output Total 1550 Balance -190 - Medications Medications: Current Medications Aspirin (Aspirin Chewable) 81 mg PO DAILY [facility] Last Admin: 11/27/16 09:13 Dose: 81 mg Clopidogrel Bisulfate (Plavix) 75 mg PO DAILY [facility] Last Admin: 11/27/16 09:13 Dose: 75 mg Enoxaparin Sodium (Lovenox) 60 mg SC Q12 [facility] Last Admin: 11/27/16 09:13 Dose: 60 mg Sodium Chloride (Sodium Chloride 0.9%) 1,000 mls @ 100 mls/hr IV .Q10H [facility] Last Admin: 11/27/16 08:00 Dose: 100 mls/hr Lisinopril (Zestril) 2.5 mg PO DAILY [facility] Last Admin: 11/27/16 09:13 Dose: 2.5 mg Metoprolol Tartrate (Lopressor) 12.5 mg PO 0800,1800 [facility] Last Admin: 11/27/16 09:15 Dose: 12.5 mg Rosuvastatin Calcium (Crestor) 20 mg PO HS [facility] Last Admin: 11/26/16 21:22 Dose: 20 mg - Labs Labs: 11/27/16 06:16 11/27/16 06:16 PT 19.9 SECONDS (9.7-12.2) H 11/27/16 06:16 INR 1.7 11/27/16 06:16 APTT 30 SECONDS (21-34) 11/20/16 13:49 - Constitutional Appears: Well - Head Exam Head Exam: ATRAUMATIC, NORMAL INSPECTION, NORMOCEPHALIC - Neurological Exam Neurological Exam: Alert, Awake, CN II-XII Intact, Oriented x3 Neuro motor strength exam: Left Upper Extremity: 5, Right Upper Extremity: 5, Left Lower Extremity: 5, Right Lower Extremity: 5 Additional comments: neurological unchanged compared from last week Assessment and Plan (1) Stroke Assessment & Plan: Case discussed with Dr. Meneses. Continue PT/ OT and for an outpatient physical and occupational therapy at [facility] Status: Acute
[2016-11-27 10:45] LABS: BETA 1 GLOBULIN 0.3 g/dL (0.4-0.6); BETA 2 GLOBULIN 0.3 g/dL (0.2-0.5); GAMMA GLOBULIN 1.1 g/dL (0.8-1.7)
--- NOTE | 2016-11-27 13:51 | CP.PCM.PN ---
<YanickShahla - Last Filed: 11/27/16 20:05> Subjective - Date & Time of Evaluation Date of Evaluation: 11/27/16 Time of Evaluation: 13:51 - Subjective Subjective: The patient was seen and examined at bedside and states that he feels fine and slept well. He says that he is able to stand comfortably and ambulate from his bed to the door and do stairs without any difficulty. He complains of left foot swelling and left knee soreness which he says began when he got here. He denies any numbness or tingling and states that his left leg weakness has greatly improved. ROS: General: (-) Fever or chills HEENT: (-) [place] or visual changes Cardio: (-) Chest pain or palpitations Resp: (-) SOB or cough GI: (-) N/V/D/C/Abdominal pain : (-) Hematuria or dysuria, (+) urinary frequency (10x/day) MSK: (+) LE swelling, (-) LE pain Objective - Vital Signs/Intake and Output Vital Signs (last 24 hours): Temp Pulse Resp BP Pulse Ox 98.0 F 70 18 118/60 99 11/27/16 07:05 11/27/16 07:30 11/27/16 07:05 11/27/16 07:05 11/27/16 07:05 Intake and Output: 11/27/16 11/27/16 06:59 18:59 Intake Total 1360 Output Total 1550 Balance -190 - Medications Medications: Current Medications Aspirin (Aspirin Chewable) 81 mg PO DAILY [facility] Last Admin: 11/27/16 09:13 Dose: 81 mg Clopidogrel Bisulfate (Plavix) 75 mg PO DAILY [facility] Last Admin: 11/27/16 09:13 Dose: 75 mg Enoxaparin Sodium (Lovenox) 60 mg SC Q12 [facility] Last Admin: 11/27/16 09:13 Dose: 60 mg Sodium Chloride (Sodium Chloride 0.9%) 1,000 mls @ 100 mls/hr IV .Q10H [facility] Last Admin: 11/27/16 08:00 Dose: 100 mls/hr Lisinopril (Zestril) 2.5 mg PO DAILY [facility] Last Admin: 11/27/16 09:13 Dose: 2.5 mg Metoprolol Tartrate (Lopressor) 12.5 mg PO 0800,1800 [facility] Last Admin: 11/27/16 09:15 Dose: 12.5 mg Rosuvastatin Calcium (Crestor) 20 mg PO HS [facility] Last Admin: 11/26/16 21:22 Dose: 20 mg Warfarin Sodium (Coumadin) 7.5 mg PO 1800 [facility] Stop: 11/27/16 18:01 - Labs Labs: 11/27/16 06:16 11/27/16 06:16 PT 19.9 SECONDS (9.7-12.2) H 11/27/16 06:16 INR 1.7 11/27/16 06:16 APTT 30 SECONDS (21-34) 11/20/16 13:49 - Constitutional Appears: Non-toxic, No Acute Distress - Head Exam Head Exam: NORMAL INSPECTION - Eye Exam Eye Exam: EOMI - ENT Exam ENT Exam: Mucous Membranes Moist - Respiratory Exam Respiratory Exam: Clear to Ausculation Bilateral, NORMAL BREATHING PATTERN - Cardiovascular Exam Cardiovascular Exam: REGULAR RHYTHM, +S1, +S2 - GI/Abdominal Exam GI & Abdominal Exam: Soft, Normal Bowel Sounds. absent: Distended, Tenderness - Extremities Exam Extremities Exam: Normal Inspection. absent: Pedal Edema, Tenderness - Back Exam Back Exam: NORMAL INSPECTION - Neurological Exam Neurological Exam: Alert, Awake, Normal Gait - Psychiatric Exam Psychiatric exam: Normal Affect, Normal Mood - Skin Skin Exam: Dry, Intact, Normal Color, Warm Assessment and Plan - Assessment and Plan (Free Text) Assessment: 1) Acute CVA * Neuro consult ([facility]) - 11/21 This is a subacute to chronic stroke, but the patient has some new symptoms. Will start IV heparin or Lovenox and bridge to coumadin to maintain an INR of 2-3. A repeat CT head can be done in 12-16 hours to evaluate for any hemorrhagic conversion. The patient may be transferred to acute rehab if stable and INR is therapeutic. * TSH 1.11, Free T4 1.18, B12 442, CRP 0.60 * ESR: 5 * 11/22 CT head: no mass or hemorrhage seen * MRI brain w/o contrast: Chronic infarctions of the medial left frontal lobe and the basilar portion of the right cerebellum are identified with trace possible restricted diffusion in foci in the periphery of the left frontal infarct. Trace hemosiderin is also seen related to the left frontal infarct without gross intracranial hemorrhage evident. Gyriform enhancement seen related to the medial left frontal infarct. For chronic lacune infarction seen the right parietal lobe as well. Age related neuro degenerative changes are appreciated. 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 * Therapeutic lovenox (60 mg QD) * Coumadin 5 mg increased to 7.5 mg (11/24) * Arterial duplex of LEs negative for disease * ASA 325 mg PO daily * Plavix 75 mg PO daily * Crestor 20 mg PO HS * Metoprolol 12.5 mg BID hold SBP<100 and HR<60 * PT/OT eval * NS 100 cc/hr 2) Impaired glucose tolerance * A1c: 6.0; prior a1c in prior hospital paperwork is 5.5 * repeat in 1 year to prevent overt diabetes 3) Hypertension * Metoprolol 12.5mg PO BID (hold SBP<100 and HR<60 * Lisinopril 2.5 mg PO QD (hold SBP<100 * NS 100 cc/hr 4) Pancytopenia * History of pancytopenia per hospital discharge summary * WBC, and platelets low * HIV, Hep panel negative * UDS negative * F/U Heme/Onc consult (Dr. Chiang) * Abdominal US showed no splenomegaly or hepatomegaly 5) History of Chronic Kidney Disease * History of CKD per hospital discharge summary * monitor BUN/Cr * GFR >60 6) Hx CAD * Cardioloft consult ([facility]) - recs appreciated * ASA 81mg PO daily, plavix 75mg PO daily, crestor 20mg POqHS * Metoprolol 12.5mg PO bid * Lisinopril 2.5mg PO daily * history of 2 stents; 2 prior heart attacks; prior cath 2011 (stent of RCA; patient has report at bedside) * RUSSEL with ECG neg x3 * Note: cardiac hx (2 NE, CAD with stents, possible paroxysmal atrial fibrillation) 7) Diarrhea * C Diff negative 8) Prophylactic Measure * Thrombocytopenia noted on review of EMR and pancytopenia prior DC summary; no bleeding episodes noted * PT/OT eval * monitor on Telemetry <Gayatri Cullen Brad - Last Filed: 11/28/16 11:18> Objective - Vital Signs/Intake and Output Vital Signs (last 24 hours): Temp Pulse Resp BP Pulse Ox 97.7 F 57 L 20 97/57 L 98 11/28/16 04:00 11/28/16 04:00 11/28/16 04:00 11/28/16 04:00 11/28/16 04:00 Intake and Output: 11/28/16 11/28/16 06:59 18:59 Intake Total 1040 Output Total 600 Balance 440 - Medications Medications: Current Medications Aspirin (Aspirin Chewable) 81 mg PO DAILY [facility] Last Admin: 11/27/16 09:13 Dose: 81 mg Clopidogrel Bisulfate (Plavix) 75 mg PO DAILY [facility] Last Admin: 11/27/16 09:13 Dose: 75 mg Enoxaparin Sodium (Lovenox) 60 mg SC Q12 [facility] Last Admin: 11/27/16 22:02 Dose: 60 mg Sodium Chloride (Sodium Chloride 0.9%) 1,000 mls @ 100 mls/hr IV .Q10H [facility] Last Admin: 11/27/16 18:18 Dose: Not Given Lisinopril (Zestril) 2.5 mg PO DAILY [facility] Last Admin: 11/27/16 09:13 Dose: 2.5 mg Metoprolol Tartrate (Lopressor) 12.5 mg PO 0800,1800 [facility] Last Admin: 11/27/16 18:17 Dose: 12.5 mg Rosuvastatin Calcium (Crestor) 20 mg PO HS [facility] Last Admin: 11/27/16 22:02 Dose: 20 mg - Labs Labs: 11/27/16 06:16 11/27/16 06:16 PT 22.3 SECONDS (9.7-12.2) H 11/28/16 06:23 INR 1.9 11/28/16 06:23 APTT 30 SECONDS (21-34) 11/20/16 13:49 Attending/Attestation - Attestation I have personally seen and examined this patient.: Yes I have fully participated in the care of the patient.: Yes I have reviewed all pertinent clinical information, including history, physical exam and plan: Yes Notes (Text): This is late computer entry 11/27/16. Patient seen, examined and case discussed with day-time resident. Patient seen during afternoon rounds. Patient seen walking in the hallway following physical therapy session Discussed with case management, patient does not have insurance for acute rehab. Disposition pending therapuetic INR prior to discharge. Currently on bridge from lovenox to Coumadin. INR: 1.7; Coumadin 7.5mg ordered for today; Advised patient at bedside to avoid foods rich in vitamin K, will cause the coumadin to be less effective. Assessment/Plan 1) Subacute on Chronic CVA * Neuro consult ([facility]) - recs appreciated * Cardiology consult (Dr. Steiner)--recs appreciated * Echo with bubble study r/o PFO-->patient does not have PFO. * LV is severely dilated. Normal left ventricular wall thickness. EF: 35-50%. Akinesia of inferolateral wall at mid cavitory level. CAD. No shunt seen. Mitral regurgitation is trace. Mild tricupsid regugitation * CT Head (11/22/16)->no hemorrhagic conversion; no intracranial mass. No acute hemorrhage. Subacute old infarcts medial right cerebllar, medial left frontal and high right frontal unchanged 11/20/16 * Patient to be bridged to Coumadin in light of cardiomyopathy with residual apical thrombus; patient is high risk for recurrent stroke discussed with both cardiology and neurology. Discussed with patient at bedside during rounds, who is awar on 11/21/16 * MRI brain w/o contrast: Chronic infarctions of the medial left frontal lobe and the basilar portion of the right cerebellum are identified with trace possible restricted diffusion in foci in the periphery of the left frontal infarct. Trace hemosiderin is also seen related to the left frontal infarct without gross intracranial hemorrhage evident. Gyriform enhancement seen related to the medial left frontal infarct. For chronic lacune infarction seen the right parietal lobe as well. Age related neuro degenerative changes are appreciated. * MRA head/neck w/o contrast: mild asymmetry and left v right perisylvian MCA branches (may be normal variation); no significant stenosis of cervical segments of common and internal carotid arteries b/l * ASA 325 mg PO daily-->81mg PO daily * Plavix 75 mg PO daily * Crestor 20 mg PO HS * Metoprolol 12.5 mg BID hold SBP<100 and HR<60 * PT/OT eval * NS 100 cc/hr * Coumadin 7.5mg PO tonight; on Lovenox bridge 2) Impaired glucose tolerance * A1c: 6.0; prior a1c in prior hospital paperwork is 5.5 * repeat in 1 year to prevent overt diabetes 3) Hypertension * Metoprolol 12.5mg PO BID (hold SBP<100 and HR<60 * Lisinopril 2.5 mg PO QD (hold SBP<100) * NS 100 cc/hr 4) Pancytopenia * Heme-onc consult: Dr Ana Chiang * History of pancytopenia per hospital discharge summary * WBC, and platelets low * HIV, Hep panel, UDS which are negative * HIT antibodies negative * Abdominal US (11/23): spleen measures 8.5 cm in craniocaudal span. liver has a normal appearance. Simple cyst in the upper pole right kidney. Complex cyst noted in the upper pole of left kidney. Heme-onc recommends for outpatient bone marrow evaluation. * Recommend for outpatient bone marrow evaluation 5) History of Chronic Kidney Disease * History of CKD per hospital discharge summary * monitor BUN/Cr * GFR >60 6) Hx CAD * Cardiology consult ([facility]) - recs appreciated * ASA 81mg PO daily, plavix 75mg PO daily, crestor 20mg POqHS * Metoprolol 12.5mg PO bid * Lisinopril 2.5mg PO daily * history of 2 stents; 2 prior heart attacks; prior cath 2011 (stent of RCA; patient has report at bedside) * RUSSEL X3 negative * Note: cardiac hx (2 NE, CAD with stents) 7) Prophylactic Measure * Thrombocytopenia noted on review of EMR and pancytopenia prior DC summary; no bleeding episodes noted-->patient is high risk for recurrent stroke secondary to cardiomyopathy-->discussed with neurology and cardiology. Patient started on therapuetic Lovenox to bridge to Coumadin. NOAC not appropriate for patient discussed with both neurology and cardiology. * PT/OT eval-->recommend acute rehab; will need to follow-up with case management * monitor on Telemetry Disposition: Patient being bridge from Lovenox to Coumadin in order to further prevent future strokes. Pending therapeutic INR prior to discharge Patient does not have insurance. Will need outpatient physical and occupational script upon discharge.
[2016-11-28 06:46] LABS: INR 1.9
[2016-11-28 07:02] VITALS: RESP 20
[2016-11-28] MEDS: Enoxaparin 60 mg Syringe SC SCH (09:25)
--- NOTE | 2016-11-28 10:24 | CP.PCM.PN ---
Subjective - Date & Time of Evaluation Date of Evaluation: 11/28/16 Time of Evaluation: 10:21 - Subjective Subjective: Mr. Mayes was seen and examined at the bedside. He denies any dizziness, lightheadedness, nausea, or headache. There is no untoward events overnight. Objective - Vital Signs/Intake and Output Vital Signs (last 24 hours): Temp Pulse Resp BP Pulse Ox 98 F 76 20 120/72 99 11/28/16 07:00 11/28/16 07:30 11/28/16 07:00 11/28/16 07:00 11/28/16 07:00 Intake and Output: 11/28/16 11/28/16 06:59 18:59 Intake Total 1040 Output Total 600 Balance 440 - Medications Medications: Current Medications Aspirin (Aspirin Chewable) 81 mg PO DAILY [facility] Last Admin: 11/28/16 09:25 Dose: 81 mg Clopidogrel Bisulfate (Plavix) 75 mg PO DAILY [facility] Last Admin: 11/28/16 09:25 Dose: 75 mg Enoxaparin Sodium (Lovenox) 60 mg SC Q12 [facility] Last Admin: 11/28/16 09:25 Dose: 60 mg Sodium Chloride (Sodium Chloride 0.9%) 1,000 mls @ 100 mls/hr IV .Q10H [facility] Last Admin: 11/27/16 18:18 Dose: Not Given Lisinopril (Zestril) 2.5 mg PO DAILY [facility] Last Admin: 11/27/16 09:13 Dose: 2.5 mg Metoprolol Tartrate (Lopressor) 12.5 mg PO 0800,1800 [facility] Last Admin: 11/28/16 09:25 Dose: 12.5 mg Rosuvastatin Calcium (Crestor) 20 mg PO HS [facility] Last Admin: 11/27/16 22:02 Dose: 20 mg - Labs Labs: 11/27/16 06:16 11/27/16 06:16 PT 22.3 SECONDS (9.7-12.2) H 11/28/16 06:23 INR 1.9 11/28/16 06:23 APTT 30 SECONDS (21-34) 11/20/16 13:49 - Constitutional Appears: Well - Head Exam Head Exam: ATRAUMATIC, NORMAL INSPECTION, NORMOCEPHALIC - Neurological Exam Neurological Exam: Alert, Awake, CN II-XII Intact, Oriented x3 Neuro motor strength exam: Left Upper Extremity: 5, Right Upper Extremity: 5, Left Lower Extremity: 5, Right Lower Extremity: 5 Additional comments: Neurological unchanged from yesterday. He is able to ambulate from bed to his chair without any instability. Assessment and Plan (1) Stroke Assessment & Plan: Case discussed with Dr. Meneses, continue current medical, physical, and occupational therapies. Status: Acute
--- NOTE | 2016-11-28 12:14 | CP.PCM.PN ---
Subjective - Date & Time of Evaluation Date of Evaluation: 11/28/16 Time of Evaluation: 12:00 - Subjective Subjective: Hospitalist Progress Note Patient was seen and examined at 12:00 PM 11/28/16 Please see Assessment and Plans below for details/summary Currenly upon FULL ROS: NO chest pain/palpitations NO SOB/Cough/Wheezing NO abdominal pain NO n/v/d/c NO burning/pain with urination NO paresthesias NO new changes in vision NO new changes in hearing NO headache NO lightheadedness/dizziness Exam: General: AAOx3, NAD HEENT: NCA, EOMI, PERRLA, Right Sclera hemorrhage, NO lymphadenopathy, NO pharyngeal erythema/exudate, Mucous Membranes are moist, Nasal Turbinates are nonedematous/nonerythematous Cardio: NS1 and NS2, NO M/R/G Respiratory:CTA B/L, NO R/R/W GI: BSx4, Soft, NT, ND, NO HSM, NO guarding/rebound tenderness, NO hernia palpated (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 Steiner)--recs appreciated * Echo with bubble study r/o PFO-->patient does not have PFO. * LV is severely dilated. Normal left ventricular wall thickness. EF: 35-50%. Akinesia of inferolateral wall at mid cavitory level. CAD. No shunt seen. Mitral regurgitation is trace. Mild tricupsid regugitation * CT Head (11/22/16)->no hemorrhagic conversion; no intracranial mass. No acute hemorrhage. Subacute old infarcts medial right cerebllar, medial left frontal and high right frontal unchanged 11/20/16 * Patient to be bridged to Coumadin in light of cardiomyopathy with residual apical thrombus; patient is high risk for recurrent stroke discussed with both cardiology and neurology. Discussed with patient at bedside during rounds, who is awar on 11/21/16 * MRI brain w/o contrast: Chronic infarctions of the medial left frontal lobe and the basilar portion of the right cerebellum are identified with trace possible restricted diffusion in foci in the periphery of the left frontal infarct. Trace hemosiderin is also seen related to the left frontal infarct without gross intracranial hemorrhage evident. Gyriform enhancement seen related to the medial left frontal infarct. For chronic lacune infarction seen the right parietal lobe as well. Age related neuro degenerative changes are appreciated. * MRA head/neck w/o contrast: mild asymmetry and left v right perisylvian MCA branches (may be normal variation); no significant stenosis of cervical segments of common and internal carotid arteries b/l * ASA 325 mg PO daily-->81mg PO daily * Plavix 75 mg PO daily * Crestor 20 mg PO HS * Metoprolol 12.5 mg BID hold SBP<100 and HR<60 * PT/OT eval * Coumadin 7.5mg PO given 11/27/16 and INR is 1.9 and goal is 2.0 to 3.0. Patient may be discharged * My colleugue Dr. Cullen informed me that she has educated patient already on Coumadin Diet 2) Impaired glucose tolerance * A1c: 6.0; prior a1c in prior hospital paperwork is 5.5 * repeat in 3 months 3) Hypertension * Metoprolol 12.5mg PO BID (hold SBP<100 and HR<60 * Lisinopril 2.5 mg PO QD (hold SBP<100) 4) Pancytopenia * Heme-onc consult: Dr Ana Chiang * History of pancytopenia per hospital discharge summary * WBC, and platelets low * HIV, Hep panel, UDS which are negative * HIT antibodies negative * Abdominal US (11/23): spleen measures 8.5 cm in craniocaudal span. liver has a normal appearance. Simple cyst in the upper pole right kidney. Complex cyst noted in the upper pole of left kidney. Heme-onc recommends for outpatient bone marrow evaluation. * Recommend for outpatient bone marrow evaluation 5) History of Chronic Kidney Disease * History of CKD per hospital discharge summary * monitor BUN/Cr * GFR >60 6) Hx CAD * Cardiology consult ([facility]) - recs appreciated * ASA 81mg PO daily, plavix 75mg PO daily, crestor 20mg POqHS * Metoprolol 12.5mg PO bid * Lisinopril 2.5mg PO daily * history of 2 stents; 2 prior heart attacks; prior cath 2011 (stent of RCA; patient has report at bedside) * RUSSEL X3 negative * Note: cardiac hx (2 ND, CAD with stents) 7) Prophylactic Measure * Thrombocytopenia noted on review of EMR and pancytopenia prior DC summary; no bleeding episodes noted-->patient is high risk for recurrent stroke secondary to cardiomyopathy-->discussed with neurology and cardiology. Patient started on therapuetic Lovenox to bridge to Coumadin. NOAC not appropriate for patient discussed with both neurology and cardiology. * PT/OT eval-->recommend acute rehab; will need to follow-up with case management The patient is stable for discharge once arrangements have been remade for [facility] outpatient PT by Plate Inspector Reyna Juarez. The following instructions are to be provided to patient in written form upon discharge: 1). Have the following prescriptions filled at your pharmacy and take as directed: Plavix 75 mg, 1 tablet by mouth 1x/day, Disp #30, NO refills Atorvastatin 40 mg, 1 tablet by mouth 1x/day (dinner), Disp #30, NO refills Lisinopril 2.5 mg, 1 tablet mouth 1x/day (lunch), Disp #30, NO refills Metoprolol Tartrate 12.5 mg, 1 tablet by mouth 2x/day (breakfast and dinner), Disp #60, NO refills Coumadin 5 mg, 1 tablet by mouth 1x/day (6 PM) , Disp #30, NO refills 2). You will also need to take a Aspirin 81 mg 1 tablet by mouth. You can purchase this at the pharmacy without a prescription. 3). You were provided with a prescription to have blood work INR measured at the [facility] located on [address] of [address]. Please have this blood work completed on 11/30/16. 4). While you are having blood work for INR (coumadin level) at the [facility] on 11/30/16, please schedule to have a follow up appointment with the doctors there so that they can help coordinate your health care. 5). Please follow up at the [facility] [place] [id number] Please call [phone] to schedule an appointment for physical therapy Objective - Vital Signs/Intake and Output Vital Signs (last 24 hours): Temp Pulse Resp BP Pulse Ox 98 F 76 20 120/72 99 11/28/16 07:00 11/28/16 07:30 11/28/16 07:00 11/28/16 07:00 11/28/16 07:00 Intake and Output: 11/28/16 11/28/16 06:59 18:59 Intake Total 1040 Output Total 600 Balance 440 - Medications Medications: Current Medications Aspirin (Aspirin Chewable) 81 mg PO DAILY [facility] Last Admin: 11/28/16 09:25 Dose: 81 mg Clopidogrel Bisulfate (Plavix) 75 mg PO DAILY [facility] Last Admin: 11/28/16 09:25 Dose: 75 mg Enoxaparin Sodium (Lovenox) 60 mg SC Q12 [facility] Last Admin: 11/28/16 09:25 Dose: 60 mg Sodium Chloride (Sodium Chloride 0.9%) 1,000 mls @ 100 mls/hr IV .Q10H [facility] Last Admin: 11/27/16 18:18 Dose: Not Given Lisinopril (Zestril) 2.5 mg PO DAILY [facility] Last Admin: 11/27/16 09:13 Dose: 2.5 mg Metoprolol Tartrate (Lopressor) 12.5 mg PO 0800,1800 [facility] Last Admin: 11/28/16 09:25 Dose: 12.5 mg Rosuvastatin Calcium (Crestor) 20 mg PO HS [facility] Last Admin: 11/27/16 22:02 Dose: 20 mg - Labs Labs: 11/27/16 06:16 11/27/16 06:16 PT 22.3 SECONDS (9.7-12.2) H 11/28/16 06:23 INR 1.9 11/28/16 06:23 APTT 30 SECONDS (21-34) 11/20/16 13:49
[2016-11-28] MEDS: Sodium Chloride 0.9% 1,000 ML IV SCH (13:00)
[2016-11-28 14:18] LABS: BASO % 0.2 % (0.0-2.0); LYMPH # 1.3 K/uL (1.0-4.3); LYMPH % 54.1 % (20.0-40.0); MEAN CELL VOLUME 98.3 fL (80.0-94.0); MEAN CORPUSCULAR HEMOGLOBIN 33.1 pg (27.0-31.0); MEAN CORPUSCULAR HGB CONC 33.6 g/dL (33.0-37.0); MEAN PLATELET VOLUME 9.9 fL (7.2-11.7); MONO # 0.2 K/uL (0.0-0.8); MONO % 9.6 % (0.0-10.0); NRBC % 0.1 % (0.0-2.0); RED CELL DISTRIBUTION WIDTH 13.3 % (11.5-14.5); WHITE BLOOD COUNT 2.4 K/uL (4.8-10.8)
[2016-11-28 14:34] LABS: CHLORIDE 105 mmol/L (98-107); POTASSIUM 3.8 mmol/L (3.6-5.2); SODIUM 141 mmol/L (132-148)
[2016-11-28 14:36] LABS: ALB/GLOB RATIO 1.2 (1.0-2.1); ALKALINE PHOSPHATASE 66 U/L (38-126); AST/SGOT 36 U/L (17-59); BILIRUBIN,TOTAL 0.4 mg/dL (0.2-1.3); BLOOD UREA NITROGEN 12 mg/dL (9-20); CARBON DIOXIDE 26 mmol/L (22-30); GFR AFRICAN-AMERICAN > 60; TOTAL PROTEIN 6.5 g/dL (6.3-8.3)
[2016-11-28 14:37] LABS: ALT/SGPT 46 U/L (21-72); CALCIUM 8.6 mg/dl (8.6-10.4); GLUCOSE,RANDOM 81 mg/dL (75-110); MAGNESIUM 1.6 mg/dL (1.6-2.3); PHOSPHOROUS 3.2 mg/dL (2.5-4.5)
--- NOTE | 2016-11-28 15:02 | CARD ---
APPROVED REPORT EKG Measurement Heart [id number] <Conclusion> Sinus rhythm with occasional premature ventricular complexes Nonspecific T wave abnormality Abnormal ECG
[2016-11-28 15:51] VITALS: BP 108/62; PULSE 62; TEMP 98.4; O2SAT 96
--- NOTE | 2016-11-28 19:10 | CP.PCM.DIS ---
<Shahla Herndon - Last Filed: 11/28/16 19:05> Provider - Provider Date of Admission: 11/20/16 14:30 Attending physician: Noe Nicholson MD Consults: Dr. Jatin Sharma Time Spent in preparation of Discharge (in minutes): 35 Diagnosis - Discharge Diagnosis (1) Pancytopenia Status: Acute Comment: please see summary for more details (2) Stroke Status: Acute Priority: High Comment: please see summary for more details Hospital Course - Lab Results Lab Results: Most Recent Lab Values WBC 2.4 K/uL (4.8-10.8) L 11/28/16 14:13 RBC 3.76 Mil/uL (4.40-5.90) L 11/28/16 14:13 Hgb 12.4 g/dL (12.0-18.0) 11/28/16 14:13 Hct 37.0 % (35.0-51.0) 11/28/16 14:13 MCV 98.3 fL (80.0-94.0) H 11/28/16 14:13 MCH 33.1 pg (27.0-31.0) H 11/28/16 14:13 MCHC 33.6 g/dL (33.0-37.0) 11/28/16 14:13 RDW 13.3 % (11.5-14.5) 11/28/16 14:13 Plt Count 96 K/uL (130-400) L 11/28/16 14:13 MPV 9.9 fL (7.2-11.7) 11/28/16 14:13 Neut % (Auto) 35.1 % (50.0-75.0) L 11/28/16 14:13 Lymph % (Auto) 54.1 % (20.0-40.0) H 11/28/16 14:13 Heard % (Auto) 9.6 % (0.0-10.0) 11/28/16 14:13 Eos % (Auto) 1.0 % (0.0-4.0) 11/28/16 14:13 Baso % (Auto) 0.2 % (0.0-2.0) 11/28/16 14:13 Neut # 0.9 K/uL (1.8-7.0) L 11/28/16 14:13 Lymph # 1.3 K/uL (1.0-4.3) 11/28/16 14:13 Heard # 0.2 K/uL (0.0-0.8) 11/28/16 14:13 Eos # 0.0 K/uL (0.0-0.7) 11/28/16 14:13 Baso # 0.0 K/uL (0.0-0.2) 11/28/16 14:13 Differential Comment 11/20/16 13:49 ESR 5 mm/hr (0-15) 11/21/16 13:47 Retic Count 0.5 % (0.5-1.5) 11/25/16 07:09 PT 22.3 SECONDS (9.7-12.2) H 11/28/16 06:23 INR 1.9 11/28/16 06:23 APTT 30 SECONDS (21-34) 11/20/16 13:49 Protein C Activity 77 % (70-180) 11/20/16 19:59 Protein S Activity 102 % (70-150) 11/20/16 19:59 Antithrombin III Activ 97 % activity (80-120) 11/20/16 19:59 Factor V see note 11/20/16 19:59 Hep-Abbie Thrombocytopen Negative (Negative) 11/21/16 13:47 Sodium 141 mmol/L (132-148) 11/28/16 14:08 Potassium 3.8 mmol/L (3.6-5.2) 11/28/16 14:08 Chloride 105 mmol/L (98-107) 11/28/16 14:08 Carbon Dioxide 26 mmol/L (22-30) 11/28/16 14:08 Anion Gap 13 (10-20) 11/28/16 14:08 BUN 12 mg/dL (9-20) 11/28/16 14:08 Creatinine 1.0 MG/DL (0.8-1.5) 11/28/16 14:08 Est GFR ( Amer) > 60 11/28/16 14:08 Est GFR (Non-Af Amer) > 60 11/28/16 14:08 POC Glucose (mg/dL) 99 mg/dL (65-110) 11/28/16 16:11 Random Glucose 81 mg/dL (75-110) 11/28/16 14:08 Hemoglobin A1c 6.0 % (4.2-6.5) 11/20/16 13:49 Calcium 8.6 mg/dl (8.6-10.4) 11/28/16 14:08 Phosphorus 3.2 mg/dL (2.5-4.5) 11/28/16 14:08 Magnesium 1.6 mg/dL (1.6-2.3) 11/28/16 14:08 Ferritin 124.0 ng/mL 11/24/16 06:28 Total Bilirubin 0.4 mg/dL (0.2-1.3) 11/28/16 14:08 AST 36 U/L (17-59) 11/28/16 14:08 ALT 46 U/L (21-72) 11/28/16 14:08 Alkaline Phosphatase 66 U/L (38-126) 11/28/16 14:08 Total Creatine Kinase 160 U/L (55-170) 11/21/16 01:40 CK-MB (Mass) 1.17 ng/mL (0.0-3.38) 11/21/16 01:40 Troponin I < 0.0120 ng/mL (0.00-0.120) 11/20/16 13:49 Troponin I, Quant < 0.0120 ng/mL (0.00-0.120) 11/21/16 01:40 C-React Prot High Sens 0.60 mg/L (1.00-3.00) L 11/22/16 09:57 Total Protein 6.5 g/dL (6.3-8.3) 11/28/16 14:08 Total Protein (PEP) 5.6 g/dL (6.1-8.1) L 11/24/16 06:28 Albumin 3.5 g/dL (3.5-5.0) 11/28/16 14:08 Albumin (PEP) 2.9 g/dL (3.8-4.8) L 11/24/16 06:28 Globulin 3.0 gm/dL (2.2-3.9) 11/28/16 14:08 Albumin/Globulin Ratio 1.2 (1.0-2.1) 11/28/16 14:08 Jqloo-2-Dlccydytt 0.2 g/dL (0.2-0.3) 11/24/16 06:28 Mlkub-8-Tshjolrsw 0.8 g/dL (0.5-0.9) 11/24/16 06:28 Rgmo-5-Dtindxgq 0.3 g/dL (0.4-0.6) L 11/24/16 06:28 Oedd-8-Kwtyfrbv 0.3 g/dL (0.2-0.5) 11/24/16 06:28 Gamma Globulins 1.1 g/dL (0.8-1.7) 11/24/16 06:28 Abnorm Protein Band 1 TEST NOT PERFORMED 11/24/16 06:28 Abnorm Protein Band 2 TEST NOT PERFORMED 11/24/16 06:28 Abnorm Protein Band 3 TEST NOT PERFORMED 11/24/16 06:28 Triglycerides 41 mg/dL (0-149) 11/20/16 13:49 Cholesterol 95 mg/dL (0-199) 11/20/16 13:49 LDL Cholesterol Direct 38 mg/dL (0-129) 11/20/16 13:49 HDL Cholesterol 44 mg/dL (30-70) 11/20/16 13:49 Vitamin B12 442 pg/mL (239-931) 11/24/16 06:28 Folate 7.7 ng/mL 11/24/16 06:28 Free T4 1.18 ng/dL (0.78-2.19) 11/22/16 09:57 TSH 3rd Generation 1.11 mIU/L (0.46-4.68) 11/22/16 09:57 Urine Color Straw (YELLOW) 11/20/16 17:58 Urine Clarity Clear (Clear) 11/20/16 17:58 Urine pH 6.0 (5.0-8.0) 11/20/16 17:58 Ur Specific [place] 1.005 (1.003-1.030) 11/20/16 17:58 Urine Protein Negative mg/dL (NEGATIVE) 11/20/16 17:58 Urine Glucose (UA) Normal mg/dL (Normal) 11/20/16 17:58 Urine Ketones Negative mg/dL (NEGATIVE) 11/20/16 17:58 Urine Blood Negative (NEGATIVE) 11/20/16 17:58 Urine Nitrate Negative (NEGATIVE) 11/20/16 17:58 Urine Bilirubin Negative (NEGATIVE) 11/20/16 17:58 Urine Urobilinogen Normal mg/dL (0.2-1.0) 11/20/16 17:58 Ur Leukocyte Esterase Neg Jammie/uL (Negative) 11/20/16 17:58 Urine WBC (Auto) < 1 /hpf (0-5) 11/20/16 17:58 Urine Opiates Screen Negative (NEGATIVE) 11/20/16 06:57 Urine Methadone Screen Negative (NEGATIVE) 11/20/16 06:57 Ur Barbiturates Screen Negative (NEGATIVE) 11/20/16 06:57 Ur Phencyclidine Scrn Negative (NEGATIVE) 11/20/16 06:57 Ur Amphetamines Screen Negative (NEGATIVE) 11/20/16 06:57 U Benzodiazepines Scrn Negative (NEGATIVE) 11/20/16 06:57 U Oth Cocaine Metabols Negative (NEGATIVE) 11/20/16 06:57 U Cannabinoids Screen Negative (NEGATIVE) 11/20/16 06:57 MIKHAIL & SPEP Interp See note 11/24/16 06:28 Serum Immunofixation Detected (Not Detected) H 11/24/16 06:28 Uwzx-0-Pyqglzhysnoi Ab <9 [place]ON (<=20) 11/20/16 19:59 Beta-2 GPI IgG Ab <9 [facility] (<=20) 11/20/16 19:59 Beta-2 GPI IgM Ab <9 [facility] (<=20) 11/20/16 19:59 Heparin-induced Plt Ab Negative (Negative) 11/21/16 13:47 KELY UFH Low Dose 0.1 0 % Release 11/21/16 13:47 KELY UFH Low Dose 0.5 0 % Release 11/21/16 13:47 KELY UFH High Dose 100 0 % Release 11/21/16 13:47 Phosphatidylserine IgG <10 U/mL (<10) 11/20/16 19:59 Phosphatidylserine IgA <20 U/mL (<20) 11/20/16 19:59 Phosphatidylserine IgM <25 U/mL (<25) 11/20/16 19:59 Anti-Phospholipid Intrp see note 11/20/16 19:59 Anti-Cardiolipin IgG Ab <14 GPL (<=14) 11/20/16 19:59 Anti-Cardiolipin IgA Ab <11 APL (<=11) 11/20/16 19:59 Anti-Cardiolipin IgM Ab <12 MPL (<=12) 11/20/16 19:59 C. difficile Ag & Toxin Negative (NEGATIVE) 11/22/16 16:22 Hepatitis A IgM Ab Negative (NEGATIVE) 11/24/16 06:28 Hep Bs Antigen Negative (NEGATIVE) 11/24/16 06:28 Hep B Core IgM Ab Negative (NEGATIVE) 11/24/16 06:28 Hepatitis C Antibody Negative (NEGATIVE) 11/24/16 06:28 HIV 1&2 Antibody Screen Negative (NEGATIVE) 11/24/16 06:28 Blood Type O POSITIVE 11/20/16 13:49 Antibody Screen Negative 11/20/16 13:49 - Hospital Course Hospital Course: Upon Admission: Patient is a 61yo male who presented to the ER with a chief complaint of left lower extremity weakness. Patient states that he was brushing his teeth around 11:45am this morning when he felt his left leg buckle then go limp underneath him so he told his niece to call an ambulance. He states that he remembers feeling a twitch in his leg before his leg went limp. He currently states the weakness has improved slightly. He says that he experienced these symptoms 1 month prior except his right leg was affected. He went to the ED at [facility] and was diagnosed with acute left CINTIA infarct. Patient has been noncompliant with medications he was discharged with. He also complains of some itchy bumps on his left thigh. He denies LOC, numbness/tingling, burning sensation, change in speech, vision, or hearing. Hospital Course: Patient was admitted for left lower extremity weakness. Patient received an EKG on 11/20/16 showed normal sinus rhythm with sinus arrhythmia and nonspecific T- wave abnormality. Head CT that day showed findings suspicious for an acute or early subacute infarct in the medical left upper lobe with probable chronic infarct the right cerebellum inferiorly. In addition, an indeterminate infarct was appreciated at the left frontal lobe posteriorly. The patient underwent an echocardiogram which revealed a severely dilated left ventricle, normal left ventricular wall thickness, EF of 35-40%, and akinesia of the inferolateral wall at mid-cavitory level. In addition, the echo showed trace mitral regurgitation, mild tricuspid regurgitation, and an estimated right ventricular systolic pressure of 30mmHg. Brain MRI on 11/20/16 showed that chronic infarctions of the medial left frontal lobe and basilar portion of the right cerebellum. Trace hemosiderin was also seen related to the left frontal infarct without gross intracranial hemorrhage. Gyriform enhancement related to the medial left frontal infarct and chronic lacune infarction of the right parietal lobe was seen as well. Age related neuro degenerative changes were also appreciated. Head MRA that day showed mildly asymmetry and left versus right perisylvian MCA branches. Neck MRA showed no significant stenosis at the cervical segments of the common and internal carotid arteries bilaterally. Neuro (Dr. Meneses) was consulted and recommended an MRI of the brain without contrast, CTA of the head and neck, an echocardiogram with bubble study, a lipid panel, HbA1c, thyroid panel, B12, and CRP/ESR. Repeat EKGs that day and on 11/21/16 showed sinus bradycardia with occasional premature ventricular complexes and nonspecific T-wave abnormality. Cardiology (Dr. 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 He recommended the patient be initiated on subcutaneous Lovenox therapy on a therapeutic regimen and then Coumadin until a therapeutic INR is achieved. LE ultrasound on 11/21/16 showed triphasic waveforms on both the right and left which suggests no significant peripheral arterial disease. Head CT on 11/22/16 revealed subacute old infarcts on the medial right cerebellar, medial left frontal and high right frontal areas which were unchanged in appearance when compared to 11/20/16. Abdominal ultrasound on 11/23/16 showed the spleen measuring 8.5cm in craniocaudal span, normal liver, simple cyst in the upper pole of the right kidney, and a complex cyst in the upper pole of the left kidney. On 11/23/16 heme /onc (Dr. Chiang) was consulted and he agreed with therapeuatic anticoagulation if the patients platelets were above 50,000. He also recommended outpatient follow-up for bone marrow determination. Upon discharge: Patient was seen and examined at bedside and says that his left leg feels much stronger and that he is able to ambulate independently without any discomfort. He denies F/C, BEACH, SOB, CP, N/V/D/C, abdominal pain, dysuria, LE numbness, tingling, pain or swelling. Patient INR is 1.9 today. The patient is stable for discharge to outpatient PT per Dr. Nicholson. The following instructions are to be provided to patient in written form upon discharge: 1). Have the following prescriptions filled at your pharmacy and take as directed: Plavix 75 mg, 1 tablet by mouth 1x/day, Disp #30, NO refills Atorvastatin 40 mg, 1 tablet by mouth 1x/day (dinner), Disp #30, NO refills Lisinopril 2.5 mg, 1 tablet mouth 1x/day (lunch), Disp #30, NO refills Metoprolol Tartrate 12.5 mg, 1 tablet by mouth 2x/day (breakfast and dinner), Disp #60, NO refills Coumadin 5 mg, 1 tablet by mouth 1x/day (6 PM) , Disp #30, NO refills 2). You will also need to take a Aspirin 81 mg 1 tablet by mouth. You can purchase this at the pharmacy without a prescription. 3). You were provided with a prescription to have blood work INR measured at the [facility] located on [address] of [address]. Please have this blood work completed on 11/30/16. 4). While you are having blood work for INR (coumadin level) at the [facility] on 11/30/16, please schedule to have a follow up appointment with the doctors there so that they can help coordinate your health care. 5). Please follow up at the [facility] [place] [id number] Please call [phone] to schedule an appointment for physical therapy Please note this is a summary of events. For more details please see complete medical record. - Date & Time of H&P Date of H&P: 11/20/16 Time of H&P: 15:55 Discharge Exam - Head Exam Head Exam: ATRAUMATIC, NORMAL INSPECTION, NORMOCEPHALIC - Eye Exam Eye Exam: EOMI - ENT Exam ENT Exam: Mucous Membranes Moist - Respiratory Exam Respiratory Exam: Clear to PA & Lateral, NORMAL BREATHING PATTERN, UNREMARKABLE - Cardiovascular Exam Cardiovascular Exam: REGULAR RHYTHM, +S1, +S2 - GI/Abdominal Exam GI & Abdominal Exam: Normal Bowel Sounds, Unremarkable - Extremities Exam Extremities exam: normal inspection - Neurological Exam Neurological exam: Alert, Normal Gait, Oriented x3 - Psychiatric Exam Psychiatric exam: Normal Affect, Normal Mood - Skin Skin Exam: Dry, Intact, Normal Color, Warm Discharge Plan - Discharge Medications Prescriptions: Atorvastatin [Lipitor] 40 mg PO DAILY #30 tab Clopidogrel [Plavix] 75 mg PO DAILY #30 tab Lisinopril 2.5 mg PO DAILY #30 tablet Metoprolol Tartrate 12.5 mg PO BID #60 tablet Warfarin [Coumadin] 5 mg PO 1800 #30 tab - Follow Up Plan Condition: STABLE Disposition: HOME/ ROUTINE Instructions: Metoprolol (By mouth), Lisinopril (By mouth), Warfarin (By mouth) , Atorvastatin (By mouth), Clopidogrel (By mouth), Atrial Fibrillation (DC), Heart Healthy Diet (DC), Stroke (DC) Additional Instructions: 1). Have the following prescriptions filled at your pharmacy and take as directed: Plavix 75 mg, 1 tablet by mouth 1x/day, Disp #30, NO refills Atorvastatin 40 mg, 1 tablet by mouth 1x/day (dinner), Disp #30, NO refills Lisinopril 2.5 mg, 1 tablet mouth 1x/day (lunch), Disp #30, NO refills Metoprolol Tartrate 12.5 mg, 1 tablet by mouth 2x/day (breakfast and dinner), Disp #60, NO refills Coumadin 5 mg, 1 tablet by mouth 1x/day (6 PM) , Disp #30, NO refills 2). You will also need to take a Aspirin 81 mg 1 tablet by mouth. You can purchase this at the pharmacy without a prescription. 3). You were provided with a prescription to have blood work INR measured at the [facility] located on [address] of [address]. Please have this blood work completed on 11/30/16. 4). While you are having blood work for INR (coumadin level) at the [facility] on 11/30/16, please schedule to have a follow up appointment with the doctors there so that they can help coordinate your health care. 5). Please follow up at the [facility] [place] [id number] Please call [phone] to schedule an appointment for physical therapy [facility] [place] [Outside] <Noe Nicholson - Last Filed: 11/28/16 19:18> Provider - Provider Date of Admission: 11/20/16 14:30 Attending physician: Noe Nicholson MD Hospital Course - Lab Results Lab Results: Most Recent Lab Values WBC 2.4 K/uL (4.8-10.8) L 11/28/16 14:13 RBC 3.76 Mil/uL (4.40-5.90) L 11/28/16 14:13 Hgb 12.4 g/dL (12.0-18.0) 11/28/16 14:13 Hct 37.0 % (35.0-51.0) 11/28/16 14:13 MCV 98.3 fL (80.0-94.0) H 11/28/16 14:13 MCH 33.1 pg (27.0-31.0) H 11/28/16 14:13 MCHC 33.6 g/dL (33.0-37.0) 11/28/16 14:13 RDW 13.3 % (11.5-14.5) 11/28/16 14:13 Plt Count 96 K/uL (130-400) L 11/28/16 14:13 MPV 9.9 fL (7.2-11.7) 11/28/16 14:13 Neut % (Auto) 35.1 % (50.0-75.0) L 11/28/16 14:13 Lymph % (Auto) 54.1 % (20.0-40.0) H 11/28/16 14:13 Heard % (Auto) 9.6 % (0.0-10.0) 11/28/16 14:13 Eos % (Auto) 1.0 % (0.0-4.0) 11/28/16 14:13 Baso % (Auto) 0.2 % (0.0-2.0) 11/28/16 14:13 Neut # 0.9 K/uL (1.8-7.0) L 11/28/16 14:13 Lymph # 1.3 K/uL (1.0-4.3) 11/28/16 14:13 Heard # 0.2 K/uL (0.0-0.8) 11/28/16 14:13 Eos # 0.0 K/uL (0.0-0.7) 11/28/16 14:13 Baso # 0.0 K/uL (0.0-0.2) 11/28/16 14:13 Differential Comment 11/20/16 13:49 ESR 5 mm/hr (0-15) 11/21/16 13:47 Retic Count 0.5 % (0.5-1.5) 11/25/16 07:09 PT 22.3 SECONDS (9.7-12.2) H 11/28/16 06:23 INR 1.9 11/28/16 06:23 APTT 30 SECONDS (21-34) 11/20/16 13:49 Protein C Activity 77 % (70-180) 11/20/16 19:59 Protein S Activity 102 % (70-150) 11/20/16 19:59 Antithrombin III Activ 97 % activity (80-120) 11/20/16 19:59 Factor V see note 11/20/16 19:59 Hep-Abbie Thrombocytopen Negative (Negative) 11/21/16 13:47 Sodium 141 mmol/L (132-148) 11/28/16 14:08 Potassium 3.8 mmol/L (3.6-5.2) 11/28/16 14:08 Chloride 105 mmol/L (98-107) 11/28/16 14:08 Carbon Dioxide 26 mmol/L (22-30) 11/28/16 14:08 Anion Gap 13 (10-20) 11/28/16 14:08 BUN 12 mg/dL (9-20) 11/28/16 14:08 Creatinine 1.0 MG/DL (0.8-1.5) 11/28/16 14:08 Est GFR ( Amer) > 60 11/28/16 14:08 Est GFR (Non-Af Amer) > 60 11/28/16 14:08 POC Glucose (mg/dL) 99 mg/dL (65-110) 11/28/16 16:11 Random Glucose 81 mg/dL (75-110) 11/28/16 14:08 Hemoglobin A1c 6.0 % (4.2-6.5) 11/20/16 13:49 Calcium 8.6 mg/dl (8.6-10.4) 11/28/16 14:08 Phosphorus 3.2 mg/dL (2.5-4.5) 11/28/16 14:08 Magnesium 1.6 mg/dL (1.6-2.3) 11/28/16 14:08 Ferritin 124.0 ng/mL 11/24/16 06:28 Total Bilirubin 0.4 mg/dL (0.2-1.3) 11/28/16 14:08 AST 36 U/L (17-59) 11/28/16 14:08 ALT 46 U/L (21-72) 11/28/16 14:08 Alkaline Phosphatase 66 U/L (38-126) 11/28/16 14:08 Total Creatine Kinase 160 U/L (55-170) 11/21/16 01:40 CK-MB (Mass) 1.17 ng/mL (0.0-3.38) 11/21/16 01:40 Troponin I < 0.0120 ng/mL (0.00-0.120) 11/20/16 13:49 Troponin I, Quant < 0.0120 ng/mL (0.00-0.120) 11/21/16 01:40 C-React Prot High Sens 0.60 mg/L (1.00-3.00) L 11/22/16 09:57 Total Protein 6.5 g/dL (6.3-8.3) 11/28/16 14:08 Total Protein (PEP) 5.6 g/dL (6.1-8.1) L 11/24/16 06:28 Albumin 3.5 g/dL (3.5-5.0) 11/28/16 14:08 Albumin (PEP) 2.9 g/dL (3.8-4.8) L 11/24/16 06:28 Globulin 3.0 gm/dL (2.2-3.9) 11/28/16 14:08 Albumin/Globulin Ratio 1.2 (1.0-2.1) 11/28/16 14:08 Xeylv-2-Hfxcnatkk 0.2 g/dL (0.2-0.3) 11/24/16 06:28 Idfhc-6-Yrbxajken 0.8 g/dL (0.5-0.9) 11/24/16 06:28 Gevu-4-Kmqyonxy 0.3 g/dL (0.4-0.6) L 11/24/16 06:28 Gvdv-0-Vytsvjmo 0.3 g/dL (0.2-0.5) 11/24/16 06:28 Gamma Globulins 1.1 g/dL (0.8-1.7) 11/24/16 06:28 Abnorm Protein Band 1 TEST NOT PERFORMED 11/24/16 06:28 Abnorm Protein Band 2 TEST NOT PERFORMED 11/24/16 06:28 Abnorm Protein Band 3 TEST NOT PERFORMED 11/24/16 06:28 Triglycerides 41 mg/dL (0-149) 11/20/16 13:49 Cholesterol 95 mg/dL (0-199) 11/20/16 13:49 LDL Cholesterol Direct 38 mg/dL (0-129) 11/20/16 13:49 HDL Cholesterol 44 mg/dL (30-70) 11/20/16 13:49 Vitamin B12 442 pg/mL (239-931) 11/24/16 06:28 Folate 7.7 ng/mL 11/24/16 06:28 Free T4 1.18 ng/dL (0.78-2.19) 11/22/16 09:57 TSH 3rd Generation 1.11 mIU/L (0.46-4.68) 11/22/16 09:57 Urine Color Straw (YELLOW) 11/20/16 17:58 Urine Clarity Clear (Clear) 11/20/16 17:58 Urine pH 6.0 (5.0-8.0) 11/20/16 17:58 Ur Specific [place] 1.005 (1.003-1.030) 11/20/16 17:58 Urine Protein Negative mg/dL (NEGATIVE) 11/20/16 17:58 Urine Glucose (UA) Normal mg/dL (Normal) 11/20/16 17:58 Urine Ketones Negative mg/dL (NEGATIVE) 11/20/16 17:58 Urine Blood Negative (NEGATIVE) 11/20/16 17:58 Urine Nitrate Negative (NEGATIVE) 11/20/16 17:58 Urine Bilirubin Negative (NEGATIVE) 11/20/16 17:58 Urine Urobilinogen Normal mg/dL (0.2-1.0) 11/20/16 17:58 Ur Leukocyte Esterase Neg Jammie/uL (Negative) 11/20/16 17:58 Urine WBC (Auto) < 1 /hpf (0-5) 11/20/16 17:58 Urine Opiates Screen Negative (NEGATIVE) 11/20/16 06:57 Urine Methadone Screen Negative (NEGATIVE) 11/20/16 06:57 Ur Barbiturates Screen Negative (NEGATIVE) 11/20/16 06:57 Ur Phencyclidine Scrn Negative (NEGATIVE) 11/20/16 06:57 Ur Amphetamines Screen Negative (NEGATIVE) 11/20/16 06:57 U Benzodiazepines Scrn Negative (NEGATIVE) 11/20/16 06:57 U Oth Cocaine Metabols Negative (NEGATIVE) 11/20/16 06:57 U Cannabinoids Screen Negative (NEGATIVE) 11/20/16 06:57 MIKHAIL & SPEP Interp See note 11/24/16 06:28 Serum Immunofixation Detected (Not Detected) H 11/24/16 06:28 Lknn-0-Icsfdxbiqzfu Ab <9 [place]ON (<=20) 11/20/16 19:59 Beta-2 GPI IgG Ab <9 [facility]U (<=20) 11/20/16 19:59 Beta-2 GPI IgM Ab <9 [facility] (<=20) 11/20/16 19:59 Heparin-induced Plt Ab Negative (Negative) 11/21/16 13:47 KELY UFH Low Dose 0.1 0 % Release 11/21/16 13:47 KELY UFH Low Dose 0.5 0 % Release 11/21/16 13:47 KELY UFH High Dose 100 0 % Release 11/21/16 13:47 Phosphatidylserine IgG <10 U/mL (<10) 11/20/16 19:59 Phosphatidylserine IgA <20 U/mL (<20) 11/20/16 19:59 Phosphatidylserine IgM <25 U/mL (<25) 11/20/16 19:59 Anti-Phospholipid Intrp see note 11/20/16 19:59 Anti-Cardiolipin IgG Ab <14 GPL (<=14) 11/20/16 19:59 Anti-Cardiolipin IgA Ab <11 APL (<=11) 11/20/16 19:59 Anti-Cardiolipin IgM Ab <12 MPL (<=12) 11/20/16 19:59 C. difficile Ag & Toxin Negative (NEGATIVE) 11/22/16 16:22 Hepatitis A IgM Ab Negative (NEGATIVE) 11/24/16 06:28 Hep Bs Antigen Negative (NEGATIVE) 11/24/16 06:28 Hep B Core IgM Ab Negative (NEGATIVE) 11/24/16 06:28 Hepatitis C Antibody Negative (NEGATIVE) 11/24/16 06:28 HIV 1&2 Antibody Screen Negative (NEGATIVE) 11/24/16 06:28 Blood Type O POSITIVE 11/20/16 13:49 Antibody Screen Negative 11/20/16 13:49 Attending/Attestation - Attestation I have personally seen and examined this patient.: Yes I have fully participated in the care of the patient.: Yes I have reviewed all pertinent clinical information, including history, physical exam and plan: Yes Notes (Text): 11/28/16 19:17 Discharge plan was thoroughly gone over with the resident Please also see my Progress Note 11/28/16. Noe Nicholson D.O.
[2016-11-30 04:26] LABS: KAPPA/LAMBDA FREE RATIO 1.15 (0.26-1.65)
== END 2016-11-28 19:36 | disposition home or self-care (01) | DRG 14 ==
LOC: C.ER 12:34 → C.9E 14:30 → C.6T 18:11
PROVIDERS: ADMIT Family Medicine; ATTEND Family Medicine
DX: I63.422 Cerebral infarction due to embolism of left anterior cerebral artery (principal); D61.818 Other pancytopenia; I42.0 Dilated cardiomyopathy; D70.9 Neutropenia, unspecified; I51.3 Intracardiac thrombosis, not elsewhere classified; I69.351 Hemiplegia and hemiparesis following cerebral infarction affecting right dominant side; E83.42 Hypomagnesemia; N18.9 Chronic kidney disease, unspecified; I48.0 Paroxysmal atrial fibrillation; I12.9 Hypertensive chronic kidney disease with stage 1 through stage 4 chronic kidney disease, or unspecified chronic kidney disease; E78.5 Hyperlipidemia, unspecified; I34.0 Nonrheumatic mitral (valve) insufficiency; I25.10 Atherosclerotic heart disease of native coronary artery without angina pectoris; R73.02 Impaired glucose tolerance (oral); I25.5 Ischemic cardiomyopathy; Z95.5 Presence of coronary angioplasty implant and graft; I25.2 Old myocardial infarction; Z79.01 Long term (current) use of anticoagulants; Z79.82 Long term (current) use of aspirin; Z79.899 Other long term (current) drug therapy; Z82.3 Family history of stroke; Z82.49 Family history of ischemic heart disease and other diseases of the circulatory system; Z91.14 Patient's other noncompliance with medication regimen